=== PATIENT | male | born 1940 | race Caucasian/White ===

== ENCOUNTER → 2017-09-06 | Outpatient (CLI) | payer MEDICARE ==
--- NOTE | 2017-09-06 15:15 | Diagnostic Imaging Report ---
PROCEDURE:KNEE 1-2 VIEWS BILATERAL COMPARISON:None. INDICATIONS:BILATERAL KNEE PAIN FINDINGS: There are no fractures, dislocations, lytic or blastic lesions. The bones are well-mineralized. The soft-tissues are unremarkable. Right knee: Mild tricompartmental degenerative changes, worse in the medial compartment appears to resolution bodies in the suprapatella. Osteophytic spurring along the inferior aspect of the patella. Left knee: Mild tricompartmental degenerative changes appears significant motion bodies in the posterior knee joint. CONCLUSION: Mild tricompartmental degenerative changes in bilateral knees. Numerous loose joint bodies in the left knee with minimal in the right knee. Dictated by: Wild Remy M.D. on 09/06/2017 at 15:15 Electronically approved by: Wild Remy M.D. on 09/06/2017 at 15:15
== END ==
LOC: RAD 13:19
PROVIDERS: ATTEND Student in an Organized Health Care Education/Training Program
DX: M25.562 Pain in left knee (principal); M25.561 Pain in right knee

== ENCOUNTER → 2018-04-19 | Outpatient (CLI) | payer MEDICARE, OTHER ==
[~2018-04-19] MED LIST: GADOBENATE DIMEGLUMINE 1 ML IV ONE
[2018-04-19 09:18] LABS: BLOOD UREA NITROGEN 28 mg/dL (7-26); BUN/CREATININE RATIO 27 (6-25); CREATININE, SERUM 1.04 mg/dL (0.72-1.25); EST GLOMERULAR FILTRATION RATE > 60 ML/MIN (60-)
--- NOTE | 2018-04-19 12:39 | Diagnostic Imaging Report ---
EXAM: MRI pelvis with and without contrast. TECHNIQUE: MR of the pelvis WITH and WITHOUT intravenous gadolinium as per departmental protocol. 15 cc of MultiHance were administered intravenously. CLINICAL HISTORY: Pelvic pain. Elevated PSA. Concern for metastatic disease. COMPARISON: None available. FINDINGS: Examination somewhat limited by imaging dictated radiation by motion artifact. BLADDER and PROSTATE: Bladder is unremarkable. The prostate is heterogeneous in signal intensity with T2 hypointense signal in the right peripheral zone, however, examination not tailored for evaluation of prostate. RECTUM: Rectum and mesorectum are unremarkable. A few scattered sigmoid diverticula without CT evidence of diverticulitis. LYMPH NODES: No lymphadenopathy. PERITONEUM: No free fluid or loculated fluid collections. BONES: Advanced degenerative disc disease at L4-L5 and L5-S1 with posterior disc bulges. There is a isthmic grade 2 anterolisthesis of L5 in relation to S1. There is also facet arthropathy at this levels. Ill-defined patchy T1 hypointense T2 hyperintense signal in the posterior aspect of S3 and S4 is nonspecific, however, metastatic focus cannot be entirely excluded. SOFT TISSUES: Bilateral small fat-containing inguinal hernias, left larger than right. IMPRESSION: 1. Grade 2 anterolisthesis of L5 in relation to S1 due to bilateral L5 pars defect may represent etiology of patient's low back pain. In addition, there is degenerative disc disease at L4-L5 and L5-S1. 2. Abnormal signal intensity involving S3 and S4 is nonspecific. Consider further evaluation with whole body bone scan (nuclear medicine scintigraphy). 3. Heterogeneous prostate with low T2 signal in the right peripheral zone is nonspecific. Signed by: Dr. Kurtis Marques M.D. on 04/19/2018 12:35 PM
--- NOTE | 2018-04-19 16:27 | Diagnostic Imaging Report ---
Bone Scan, delayed phase INDICATION: 77 M with elevated PSA. Had prostate biopsy few years ago and was normal. Complains of intermittent hip, shoulder, back and knee pain. COMPARISON: MRI pelvis 04/19/2018 REPORT: Approximately 3 hours following intravenous administration of 27 mCi of Tc-99m MDP, delayed total body images in the anterior and posterior projections and selected spot images were obtained. Degenerative changes are noted in the cervical and lower lumbar spine. Scattered areas of very small foci of mildly increased tracer throughout the thoracolumbar spine are also compatible with degenerative changes. Increased tracer is seen in the shoulders, wrists and knees in a relatively symmetric patter, consistent with degenerative change. Otherwise, distribution of tracer activity is unremarkable throughout the skeletal system. No abnormal accumulation of tracer is seen in the soft tissues or urinary tract. IMPRESSION: 1. No scan evidence of metastatic bone disease. 2. Degenerative changes noted in the spine and multiple peripheral joints. Signed by: Dr. Scarlet Cuadra M.D. on 04/19/2018 4:24 PM
== END ==
LOC: NM 08:10
PROVIDERS: ATTEND Urology
DX: R97.20 Elevated prostate specific antigen [PSA] (principal)
CPT/HCPCS: 36415; 72197; 78306; 82565; 84520; A9503

== ENCOUNTER → 2018-09-20 | Day surgery (SDC) | payer MEDICARE ==
[2018-09-18 11:04] LABS: BASOPHILS # (AUTO) 0.1 (0.0-0.1); BASOPHILS % 0.6 % (0.0-1.0); EOSINOPHILS # (AUTO) 0.2 (0.0-0.4); EOSINOPHILS % 2.2 % (0.0-6.0); HEMATOCRIT 46.9 % (38.2-49.6); HEMOGLOBIN 15.7 g/dL (14.0-18.0); LYMPHOCYTES % 20.4 % (18.0-39.1); MEAN CORPUSCULAR HEMOGLOBIN 31.8 pg (28-32); MEAN CORPUSCULAR HGB CONC 33.5 g/dL (31-35); MEAN CORPUSCULAR VOLUME 95.1 fL (81-99); MONOCYTES # (AUTO) 0.9 (0.2-0.8); MONOCYTES % 9.5 % (4.4-11.3); NEUTROPHILS # (AUTO) 6.6 (2.1-6.9); NEUTROPHILS % 66.9 % (38.7-80.0); PLATELET COUNT 271 x10e3/uL (140-360); RED BLOOD COUNT 4.93 x10e6/uL (4.3-5.7); RED CELL DISTRIBUTION WIDTH 12.4 % (11.7-14.4)
--- NOTE | 2018-09-18 12:09 | Diagnostic Imaging Report ---
EXAMINATION: CHEST 2 VIEWS INDICATION: Pre-op. COMPARISON: None FINDINGS: TUBES and LINES: None. LUNGS: Lungs are well inflated. Lungs are clear. There is no evidence of pneumonia or pulmonary edema. PLEURA: No pleural effusion or pneumothorax. HEART AND MEDIASTINUM: The cardiomediastinal silhouette is unremarkable. The aorta is ectatic with atherosclerotic calcifications. BONES AND SOFT TISSUES: No acute osseous abnormality. UPPER ABDOMEN: No free air under the diaphragm. IMPRESSION: No acute thoracic abnormality. Signed by: Dr. Sriram Nieves MD on 09/18/2018 12:06 PM
[~2018-09-20] MED LIST changes: +ATORVASTATIN CA20 MG PO; +CLINDAMYCIN 300MG 50 ML IV ONE; +FLOMAX0.4 MG PO; -GADOBENATE DIMEGLUMINE 1 ML IV ONE; +GENTAMICIN 120MG/NS 100ML 100 ML ONE; +LIDOCAINE HCL 2% LOCAL INJ 5 ML SDV VIAL INJ ONE; +LISINOPRIL-HCT1 EACH; +PROPOFOL IV EMULSION 10 MG/ML 20 ML VIAL ONE
--- OUTSIDE RECORDS SUMMARY | 2018-09-20 06:04 | XMS REPORT ---
Author Author [facility] Address Unknown Phone Unavailable Care Team Providers Care Global Sourcing Manager Name Role Phone CHUCK HENRY Unavailable Unavailable Melvin HU Unavailable Unavailable Problems This patient has no known problems. Allergies, Adverse Reactions, Alerts This patient has no known allergies or adverse reactions. Medications This patient has no known medications. Results Test Description Test Time Test Comments Text Results Atomic Results Result Comments CHEST 2 VIEWS 2018-09-18 12:04:00 [facility] [address] [place] [address] Patient Name: RAPHAEL HERNADEZ MR #: [id number] : 1940 Age/Sex: 77/M Req #: [id number] Adm Physician: Ordered by: CHUCK HENRY MD Report #: [id number] Location: OR Room/Bed: Procedure: [id number] DX/CHEST 2 VIEWS Exam Date: 09/18/18 Exam Time: 1053 REPORT STATUS: Signed EXAMINATION: CHEST 2 VIEWS INDICATION: Pre-op. COMPARISON: None FINDINGS: TUBES and LINES: None. LUNGS: Lungs are well inflated. Lungs are clear. There is no evidence of pneumonia or pulmonary edema. PLEURA: No pleural effusion or pneumothorax. HEART AND MEDIASTINUM: The cardiomediastinal silhouette is unremarkable. The aorta is ectatic with atherosclerotic calcifications. BONES AND SOFT TISSUES: No acute osseous abnormality. UPPER ABDOMEN: No free air under the diaphragm. IMPRESSION: No acute thoracic abnormality. Signed by: Dr. Pricila Campbell MD on 09/18/2018 12:06 PM Dictated By: PRICILA CAMPBELL MD 05 Transcribed By: JOSEPH on 09/18/186 COPY TO: CHUCK HENRY MD BONE and/or JOINT WHOLE BODY 2018-04-19 15:30:00 [place] [id number] Patient Name: RAPHAEL HERNADEZ MR #: [id number] : 1940 Age/Sex: 77/M Req #: [id number] Adm Physician: Ordered by: CHUCK HENRY MD Report #: [id number] Location: [place] Room/Bed: Procedure: [id number] NM/BONE and/or JOINT WHOLE BODY Exam Date: 04/19/18 Exam Time: 0900 REPORT STATUS: Signed Bone Scan, delayed phase INDICATION: 77 M with elevated PSA. Had prostate biopsy few years ago and was normal. Complains of intermittent hip, shoulder, back and knee pain. COMPARISON: MRI pelvis 04/19/2018 REPORT: Approximately 3 hours following intravenous administration of 27 mCi of Tc-99m MDP, delayed total body images in the anterior and posterior projections and selected spot images were obtained. Degenerative changes are noted in the cervical and lower lumbar spine. Scattered areas of very small foci of mildly increased tracer throughout the thoracolumbar spine are also compatible with degenerative changes. Increased tracer is seen in the shoulders, wrists and knees in a relatively symmetric patter, consistent with degenerative change. Otherwise, distribution of tracer activity is unremarkable throughout the skeletal system. No abnormal accumulation of tracer is seen in the soft tissues or urinary tract. IMPRESSION: 1. No scan evidence of metastatic bone disease. 2. Degenerative changes noted in the spine and multiple peripheral joints. Signed by: Dr. Suzanne Cuadra M.D. on 04/19/2018 4:24 PM Dictated By: SUZANNE CUADRA MD 23 Transcribed By: JOSEPH on 04/19/181623 COPY TO: CHUCK HENRY MD MRI PELVIS WOW 2018-04-19 12:10:00 [place] [address] Patient Name: RAPHAEL HERNADEZ MR #: [id number] : 1940 Age/Sex: 77/M Req #: [id number] Adm Physician: Ordered by: CHUCK HENRY MD Report #: [id number] Location: [place] Room/Bed: Procedure: [id number] MRI/MRI PELVIS WOW Exam Date: Exam Time: REPORT STATUS: Signed EXAM: MRI pelvis with and without contrast. TECHNIQUE: MR of the pelvis WITH and WITHOUT intravenous gadolinium as per departmental protocol. 15 cc of MultiHance were administered intravenously. CLINICAL HISTORY: Pelvic pain. Elevated PSA. Concern for metastatic disease. COMPARISON: None available. FINDINGS: Examination somewhat limited by imaging dictated radiation by motion artifact. BLADDER and PROSTATE: Bladder is unremarkable. The prostate is heterogeneous in signal intensity with T2 hypointense signal in the right peripheral zone, however, examination not tailored for evaluation of prostate. RECTUM: Rectum and mesorectum are unremarkable. A few scattered sigmoid diverticula without CT evidence of diverticulitis. LYMPH NODES: No lymphadenopathy. PERITONEUM: No free fluid or loculated fluid collections. BONES: Advanced degenerative disc disease at L4-L5 and L5-S1 with posterior disc bulges. There is a isthmic grade 2 anterolisthesis of L5 in relation to S1. There is also facet arthropathy at this levels. Ill-defined patchy T1 hypointense T2 hyperintense signal in the posterior aspect of S3 and S4 is nonspecific, however, metastatic focus cannot be entirely excluded. SOFT TISSUES: Bilateral small fat-containing inguinal hernias, left larger than right. IMPRESSION: 1. Grade 2 anterolisthesis of L5 in relation to S1 due to bilateral L5 pars defect may represent etiology of patient's low back pain. In addition, there is degenerative disc disease at L4-L5 and L5-S1. 2. Abnormal signal intensity involving S3 and S4 is nonspecific. Consider further evaluation with whole body bone scan (nuclear medicine scintigraphy). 3. Heterogeneous prostate with low T2 signal in the right peripheral zone is nonspecific. Signed by: Dr. Kurtis James M.D. on 04/19/2018 12:35 PM Dictated By: OSIEL JAMES MD, MD 1235 Transcribed By: JOSEPH on 04/19/18 1235 COPY TO: CHUCK HENRY MD KNEE 1-2 VIEWS BILATERAL [place] [address] Patient Name: RAPHAEL HERNADEZ MR #: [id number] : 1940 Age/Sex: 76/M Req #: [id number] Adm Physician: Ordered by: RAFA HU MD Report #: [id number] Location: [facility] Room/Bed: Procedure: [id number] DX/KNEE 1-2 VIEWS BILATERAL Exam Date: 09/06/17 Exam Time: 1407 REPORT STATUS: Signed PROCEDURE: KNEE 1-2 VIEWS BILATERAL COMPARISON: None. INDICATIONS: BILATERAL KNEE PAIN FINDINGS: There are no fractures, dislocations, lytic or blastic lesions. The bones are well-mineralized. The soft-tissues are unremarkable. Right knee: Mild tricompartmental degenerative changes, worse in the medial compartment appears to resolution bodies in the suprapatella. Osteophytic spurring along the inferior aspect of the patella. Left knee: Mild tricompartmental degenerative changes appears significant motion bodies in the posterior knee joint. CONCLUSION: Mild tricompartmental degenerative changes in bilateral knees. Numerous loose joint bodies in the left knee with minimal in the right knee. Dictated by: Daniel Khoury M.D. on 09/06/2017 at 15:15 Electronically approved by: Daniel Khoury M.D. on 09/06/2017 at 15:15 Dictated By: DANIEL KHOURY MD 1515 Transcribed By: MARYLIN on 09/06/17 5433 COPY TO: RAFA HU MD
[2018-09-20 08:20] VITALS: BP 136/96
--- NOTE | 2018-09-20 22:47 | Operative Report ---
DATE OF PROCEDURE: 09/20/2018 SURGEON: Hammad Frost MD PREOPERATIVE DIAGNOSIS: Elevated PSA. POSTOPERATIVE DIAGNOSIS: Elevated PSA. PROCEDURES: 1. Prostate ultrasound. 2. Needle biopsy of prostate. 3. Ultrasound guidance needle biopsy. ANESTHESIA: General. ESTIMATED BLOOD LOSS: Minimal. COMPLICATIONS: None. INDICATIONS FOR PROCEDURE: Mr. Shell is a 77-year-old male with a PSA of over 200. He and I had a long discussion about the alternatives, risks and benefits including doing nothing and prostate biopsy. He voiced understanding of the options, alternatives, the risks, and benefits and he elected to proceed. PROCEDURE IN DETAIL: After informed consent was obtained, the patient was taken to the operating suite. He was placed in left lateral position on the operating table and underwent anesthesia. Prostate ultrasound: Utilizing a plethora of lubrication, the transrectal ultrasound probe was inserted atraumatically rectally. Prostate ultrasound was performed revealing normal-appearing seminal vesicles, normal-appearing prostate, volume was calculated at 34 mL. Impression, BPH. Needle biopsy of the prostate. Total 10 core biopsy approach was utilized, sent as sextant specimens. The patient tolerated the procedure well with minimal complications. No active bleeding. Ultrasound guidance: I was present. I utilized the ultrasound to guide needle biopsy prostate. There were no radiologists present. Hammad Frost MD ES/MODL /[id number] cc: Gildardo Downs MTDKaye
== END | disposition home or self-care (01) ==
LOC: OR 06:02
PROVIDERS: ATTEND Urology
DX: R97.20 Elevated prostate specific antigen [PSA] (principal); N41.4 Granulomatous prostatitis; N40.1 Benign prostatic hyperplasia with lower urinary tract symptoms; N13.8 Other obstructive and reflux uropathy; R35.1 Nocturia; N35.919 Unspecified urethral stricture, male, unspecified site; N52.9 Male erectile dysfunction, unspecified; I10 Essential (primary) hypertension; Z01.810 Encounter for preprocedural cardiovascular examination; Z01.812 Encounter for preprocedural laboratory examination; Z01.818 Encounter for other preprocedural examination; Z79.82 Long term (current) use of aspirin; Z87.891 Personal history of nicotine dependence
CPT/HCPCS: 36415; 55700; 71046; 76872; 85025; 88305; 88312; 93005; J1580; J2001; J2704

== ENCOUNTER → 2019-01-30 | Outpatient (CLI) | payer MEDICARE ==
[~2019-01-30] MED LIST changes: -CLINDAMYCIN 300MG 50 ML IV ONE; -GENTAMICIN 120MG/NS 100ML 100 ML ONE; +IOPAMIDOL 370 MG/ML 200 ML INFUS..BTL INJ ONE; -LIDOCAINE HCL 2% LOCAL INJ 5 ML SDV VIAL INJ ONE; -PROPOFOL IV EMULSION 10 MG/ML 20 ML VIAL ONE; +SODIUM CHLORIDE 0.9% 50ML 50 ML ONE
[2019-01-30 08:31] LABS: BLOOD UREA NITROGEN 22 mg/dL (7-26); BUN/CREATININE RATIO 21 (6-25); CREATININE, SERUM 1.07 mg/dL (0.72-1.25); EST GLOMERULAR FILTRATION RATE > 60 ML/MIN (60-)
--- NOTE | 2019-01-30 10:04 | Diagnostic Imaging Report ---
EXAM: CT Pelvis WITH intravenous contrast INDICATION: Prostate enlargement, back pain COMPARISON: None. TECHNIQUE: Abdomen and pelvis were scanned utilizing a multidetector helical scanner from the lung base to the pubic symphysis after administration of IV contrast. Coronal and sagittal reformations were obtained. Routine protocol was performed. Scan was performed during portal venous phase. IV CONTRAST: 100mL of Isovue 370 ORAL CONTRAST: None RADIATION DOSE: Total DLP: 303.2 mGy*cm Dose modulation, iterative reconstruction, and/or weight based adjustment of the mA/kV was utilized to reduce the radiation dose to as low as reasonably achievable. FINDINGS: KIDNEYS/URETERS: Inferior most portion of right kidney appears unremarkable. PELVIC ORGANS/BLADDER: Distended fluid-filled bladder. Prostatomegaly measuring up to 5.2 cm with coarse internal calcifications. PERITONEUM / RETROPERITONEUM: No free air or fluid. LYMPH NODES: No lymphadenopathy. VESSELS: Scattered atherosclerotic calcifications of the tortuous lower abdominal aorta and major branches. GI TRACT: No distention or wall thickening. BONES AND SOFT TISSUES: Left inguinal hernia containing a loop of sigmoid colon. No acute osseous injury. No suspicious lytic or blastic lesions. Marked degenerative changes of the lower lumbar spine with grade 1 anterolisthesis at L5-S1. IMPRESSION: Prostatomegaly up to 5.2 cm with coarse internal calcifications. No lymphadenopathy or suspicious blastic osseous lesions. Left inguinal hernia containing loop of sigmoid colon. Signed by: Nicki Prajapati MD on 01/30/2019 10:01 AM
--- NOTE | 2019-01-30 19:03 | Diagnostic Imaging Report ---
Bone Scan, delayed phase INDICATION: Prostate cancer; rising PSA. COMPARISON: Prior bone scan 04/19/2018; CT pelvis 01/30/2019 REPORT: Approximately 3 hours following intravenous administration of 27.5 mCi of Tc-99m MDP, delayed total body images in the anterior and posterior projections and selected spot images were obtained. New focal areas of markedly increased tracer activity are seen in the upper cervical spine, multiple levels of the thoracic spine, left 7th and 12th ribs posteriorly, manubrium, left ASIS, right iliac wing and right ischium inferior to the acetabulum. The patient was not able to adequately empty his bladder on void immediately prior to imaging. The full bladder obscures the inferior portion of the sacrum, however, on oblique views of the pelvis, increased tracer appears to involve the inferior sacrum. Otherwise, distribution of tracer activity is unremarkable throughout the skeletal system. No abnormal accumulation of tracer is seen in the soft tissues or renal collecting systems. 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 Signed by: Dr. Scarlet Cuadra M.D. on 01/30/2019 7:00 PM
== END ==
LOC: NM 07:47
PROVIDERS: ATTEND Urology
DX: R97.20 Elevated prostate specific antigen [PSA] (principal)
CPT/HCPCS: 36415; 72193; 78306; 82565; 84520; A9503; Q9967

== ENCOUNTER 2019-10-20 17:43 | Inpatient (IN) | payer MEDICARE, OTHER ==
[~2019-10-20] VITALS: Ht 175.3 cm; Wt 70.5 kg
[~2019-10-20 17:43] MED LIST changes: -IOPAMIDOL 370 MG/ML 200 ML INFUS..BTL INJ ONE; -LISINOPRIL-HCT1 EACH; +LISINOPRIL-HCT1 EACH PO; -SODIUM CHLORIDE 0.9% 50ML 50 ML ONE
--- OUTSIDE RECORDS SUMMARY | 2019-10-20 17:47 | XMS REPORT ---
Author Author [facility] t Organization [facility] Address [address] [place] [address] Phone Unavailable Care Team Providers Care Utility Technician Name Role Phone CHUCK HENRY Attphys Unavailable Melvin HU Attphys Unavailable Payers Payer Name Policy Type Policy Number Effective Date Expiration Date S ource Problems This patient has no known problems. Allergies, Adverse Reactions, Alerts Allergy Name Allergy Type Status Severity Reaction(s) Onset Date Inacti ve Date Treating Clinician Comments Source No Known Allergies DA Active U 2019-05-08 00:00:00 [facility] Medications This patient has no known medications. Procedures This patient has no known procedures. Results Test Description Test Time Test Comments Results Result Comments Source BONE,BIOPSY 2019-05-13 16:50:00 RUN DATE: 05/13/19 [place] [facility] PAGE 1 RUN TIME: 1650 Specimen Inquiry RUN USER: INTERFACE PATIENT: RAPHAEL HERNADEZ EDD LOC: [place]EL[place] U #: [id number] AGE/SX: 78/M ROOM: RE05/09/19[facility] DR: Fabien Hess MD : 41 BED: DIS: STATUS: DEP [facility] TLOC: SPEC #: [id number] RECD: 05/09/19 STATUS: ADDY RE #: [id number] JAVIER: 05/09/[address] [facility] [address]: Fabien Hess MD ENTERED: 05/09/19 SP TYPE: BX BONE OTHR DR: Brittany Reed MD TUMOR REGISTRYORDERED: GROSS COPIES TO: Brittany Reed MD [address] [facility] [address] [place] [address] TUMOR REGISTRY aFbien Hess MD [address] [place] [address] MARKERS: INTRADEPARTMENTAL CONSULT, MALIGNANCY PROCEDURES: GROSS (05/13/19-1524) TISSUES: 1. BONE - RINSE, 6 SLIDES 2. BONE MARROW, NOS - BX CLINICAL HISTORY COLLECTION DATE: 05/09/19 HISTORY PROSTATE CANCER COMMENT Immunostains were prepared on the bone core biopsy at 51Talk and interpreted at . The controls stain appropriately. The tumor is positive for PSA and PSAP. The findings are consistent with metastatic prostate carcinoma. Intradepartmental consultation: RRB. CONTINUED ON NEXT PAGE RUN DATE: 05/13/19 [place] [facility] PAGE 2 RUN TIME: 1650 Specimen Inquiry RUN USER: INTERFACE SPEC #: [id number] PATIENT: RAPHAEL HERNADEZ MABEL #[id number] (Continued) FINAL DIAGNOSIS Right iliac bone, fine needle aspirate biopsy: RARE COLLECTIONS OF ATYPICAL GLANDULAR EPITHELIAL CELLS WITH PROMINENT NUCLEOLI CONSISTENT WITH METASTATIC PROSTATIC CARCINOMA FEW BONE MARROW ELEMENTS SEEN POSITIVE FOR MALIGNANCY Right iliac bone, core biopsy: METASTATIC TUMOR CONSISTENT WITH METASTATIC PROSTATE CARCINOMA, BONE DMW/estela D 00711, 11218, 33284, 26718 MACROSCOPIC The specimens consist of six aspirate smear slides to be stained for cytologic evaluation, aspirate fluid to be concentrated and processed for cytologic evaluation, and a bone biopsy which is received in formalin, labeled with the patient's name, and identified as "bone biopsy". A cell block is prepared on the aspirate fluid. The bone core biopsy measures 0.7 cm in length by 0.15 cm in diameter. It is submitted for light decalcification and follow up microscopic evaluation. GROSS PERFORMED AT [facility] [address] [place] [address] (p)[phone] MICROSCOPIC All of the stains, including any controls performed, stain appropriately. MICROSCOPIC PERFORMED AT [facility] [address] [facility] [place] [address] (p)[phone] PERFORMING SITE Diagnosis performed at: [facility] [place] [address] [facility] CONTINUED ON NEXT PAGE RUN DATE: 05/13/19 [place] [facility] PAGE 3 RUN TIME: 1650 Specimen Inquiry RUN USER: INTERFACE SPEC #: [id number] PATIENT: RAPHAEL HERNADEZ EDD #[id number] (Continued) PERFORMING SITE (Continued) [place] [address] Signed SIGNATURE ON FILE Shakira Ramires MD 05/13/19 1650 -------- ---- END OF REPORT - [facility] 2019-05-12 21:34:00 Name: RAPHAEL HERNADEZ EDD [facility] : 1940 Age/S: 78 / M [address] Unit #: [id number] Loc: [place] [address] Phys: Fabien Hess MD Acct: [id number] Dis Date: Status: [facility] PHONE #: [phone] Exam Date: 05/09/2019 1200 FAX #: [phone] Reason: EXAMS: CPT CODE: [id number] CT [facility] [address] EXAM: CT-guided pelvic bone biopsy; INFORMATION: Patient with history of prostate cancer and significant elevation of PSA. A bone scan has demonstrated several areas of increased radionuclide uptake including lesions within the right iliac wing. A diagnostic CT scan has demonstrated a poorly defined slightly sclerotic area in the right iliac wing and additional slightly hypodense areas. These are suspicious for metastatic disease. TECHNIQUE AND FIND INGS: Informed consent was obtained and the patient was placed in supine oblique position on the CT table. Localization scans were obtained. General anesthesia was initiated. The patient's skin in the right lower quadrant was prepped and draped in the usual sterile fashion. Marcaine was administered at the skin and at the periosteum and Jamshidi bone biopsy needles were then inserted into the fluid components of the abnormal area of the right iliac wing. A tissue core was retrieved and bone marrow was aspirated. Tissue material was sent to the pathology lab. The needles were removed. Post biopsy scans showed no evidence of hemorrhage. No complications. IMPRESSION: Successful CT-guided bone biopsy of 2 abnormal areas within the right iliac wing. Location code: [facility] at 2134 Reported and signed by: Fabien Hess M.D. CC: Brittany Reed MD; Fabien Hess MD Technologist:Chan Vuong RT(R),(MR),(CT) CTDI: DLP: Trnscb Date/Time: 05/12/2019 (2133) [email or web address].GRW Orig Print D/T: S: 05/12/2019 (2136) PAGE 1 Signed Report [facility] 2019-05-12 21:34:00 Name: RAPHAEL HERNADEZ EDD [facility] : 1940 Age/S: 78 / M [address] Unit #: [id number] Loc: [place] [address] Phys: Fabien Hess MD Acct: [id number] Dis Date: Status: [facility] PHONE #: [phone] Exam Date: 05/09/2019 1200 FAX #: [phone] Reason: BONE MARROW BX EXAMS: CPT CODE: [id number] CT [facility] [address] EXAM: CT-guided pelvic bone biopsy; INFORMATION: Patient with history of prostate cancer and significant elevation of PSA. A bone scan has demonstrated several areas of increased radionuclide uptake including lesions within the right iliac wing. A diagnostic CT scan has demonstrated a poorly defined slightly sclerotic area in the right iliac wing and additional slightly hypodense areas. These are suspicious for metastatic disease. TECHNIQUE AND FIND INGS: Informed consent was obtained and the patient was placed in supine oblique position on the CT table. Localization scans were obtained. General anesthesia was initiated. The patient's skin in the right lower quadrant was prepped and draped in the usual sterile fashion. Marcaine was administered at the skin and at the periosteum and Jamshidi bone biopsy needles were then inserted into the fluid components of the abnormal area of the right iliac wing. A tissue core was retrieved and bone marrow was aspirated. Tissue material was sent to the pathology lab. The needles were removed. Post biopsy scans showed no evidence of hemorrhage. No complications. IMPRESSION: Successful CT-guided bone biopsy of 2 abnormal areas within the right iliac wing. Location code: [facility] at 2133 Reported and signed by: Fabien Hess M.D. CC: Brittany Reed MD; Fabien Hess MD Technologist:Chan Vuong RT(R),(MR),(CT) CTDI: DLP: Trnscb Date/Time: 05/12/2019 (2133) [email or web address] Orig Print D/T: S: 05/12/2019 (2136) PAGE 1 Signed Report BASIC METABOLIC PANEL 2019-05-09 10:18:00 Test Item SODIUM (test code = NA) 138 mmol/L 136-145 N POTASSIUM (test code = K) 3.7 mmol/L 3.5-5.1 N CHLORIDE (test code = CL) 107.0 mmol/L 98-107 N CARBON DIOXIDE (test code = CO2) 26.0 mmol/L 21-32 N ANION GAP (test code = GAP) 8.7 10-20 L GLUCOSE (test code = GLU) 92 mg/dL 74-106 N BLOOD UREA NITROGEN (test code = BUN) 22 mg/dL 7-18 H GLOMERULAR FILTRATION RATE (test code = GFR) > 60 mL/min >=60 Estimated GFR by using Modified MDRD formula.Chronic kidney disease is defined as either kidney damageor GFR <60 mL/min/1.73 m2 for >3 months. CREATININE (test code = CREAT) 1.00 mg/dL 0.7-1.3 N BUN/CREATININE RATIO (test code = BUN/CREA) 22.5 10-20 H CALCIUM (test code = CA) 9.4 mg/dL 8.5-10.1 N BASIC METABOLIC [id number] 10:17:00* Test Item Value Reference Range Interpretation Comments SODIUM (test code = NA) 138 mmol/L 136-145 N POTASSIUM (test code = K) 3.7 mmol/L 3.5-5.1 N CHLORIDE (test code = CL) 107.0 mmol/L 98-107 N CARBON DIOXIDE (test code = CO2) mmol/L 21-32 ANION GAP (test code = GAP) 10-20 GLUCOSE (test code = GLU) mg/dL 74-106 BLOOD UREA NITROGEN (test code = BUN) mg/dL 7-18 GLOMERULAR FILTRATION RATE (test code = GFR) mL/min >=60 CREATININE (test code = CREAT) mg/dL 0.7-1.3 BUN/CREATININE RATIO (test code = BUN/CREA) 10-20 CALCIUM (test code = CA) mg/dL 8.5-10.1 CBC W/AUTO [id number] 09:53:00* Test Item Value Reference Range Interpretation Comments WHITE BLOOD CELL (test code = WBC) 7.5 K/mm3 4.5-12.5 N RED BLOOD CELL (test code = RBC) 4.67 mill/mm3 4.0-5.8 N HEMOGLOBIN (test code = HGB) 14.3 gram/dL 13.0-17.5 N HEMATOCRIT (test code = HCT) 44.6 % 42.0-52.0 N MEAN CELL VOLUME (test code = MCV) 95.5 fL 80-98 N MEAN CELL HGB (test code = MCH) 30.6 picogram 27.0-33.0 N MEAN CELL HGB CONCETRATION (test code = MCHC) 32.1 gram/dL 33.0-36. 0 L RED CELL DISTRIBUTION WIDTH (test code = RDW) 13.7 % 11.6-16. 2 N RED CELL DISTRIBUTION WIDTH SD (test code = RDW-SD) 48.3 fL 37 .0-51.0 N PLATELET COUNT (test code = PLT) 247 K/mm3 150-450 N MEAN PLATELET VOLUME (test code = MPV) 10.0 fL 6.7-11.0 N NEUTROPHIL % (test code = NT%) 64.7 % 39.0-69.0 N IMMATURE GRANULOCYTE % (test code = IG%) 0.3 % 0.0-5.0 N LYMPHOCYTE % (test code = LY%) 23.3 % 25.0-55.0 L MONOCYTE % (test code = MO%) 7.2 % 0.0-10.0 N EOSINOPHIL % (test code = EO%) 3.6 % 0.0-5.0 N BASOPHIL % (test code = BA%) 0.9 % 0.0-1.0 N NUCLEATED RBC % (test code = NRBC%) 0.0 % 0-0 N NEUTROPHIL # (test code = NT#) 4.88 K/mm3 1.8-7.7 N IMMATURE GRANULOCYTE # (test code = IG#) 0.02 x10 3/uL 0-0.03 N LYMPHOCYTE # (test code = LY#) 1.76 K/mm3 1.0-5.0 N MONOCYTE # (test code = MO#) 0.54 K/mm3 0-0.8 N EOSINOPHIL # (test code = EO#) 0.27 K/mm3 0.0-0.5 N BASOPHIL # (test code = BA#) 0.07 K/mm3 0.0-0.2 N NUCLEATED RBC # (test code = NRBC#) 0.00 K/mm3 0.0-0.1 N MANUAL DIFF REQUIRED (test code = MDIFF) NO CBC W/AUTO [id number] 09:50:00* Test Item Value Reference Range Interpretation Comments WHITE BLOOD CELL (test code = WBC) K/mm3 4.5-12.5 RED BLOOD CELL (test code = RBC) mill/mm3 4.0-5.8 HEMOGLOBIN (test code = HGB) 14.3 gram/dL 13.0-17.5 N HEMATOCRIT (test code = HCT) 44.6 % 42.0-52.0 N MEAN CELL VOLUME (test code = MCV) fL 80-98 MEAN CELL HGB (test code = MCH) picogram 27.0-33.0 MEAN CELL HGB CONCETRATION (test code = MCHC) gram/dL 33.0-36. 0 RED CELL DISTRIBUTION WIDTH (test code = RDW) % 11.6-16. 2 RED CELL DISTRIBUTION WIDTH SD (test code = RDW-SD) fL 37 .0-51.0 PLATELET COUNT (test code = PLT) K/mm3 150-450 MEAN PLATELET VOLUME (test code = MPV) fL 6.7-11.0 NEUTROPHIL % (test code = NT%) % 39.0-69.0 IMMATURE GRANULOCYTE % (test code = IG%) % 0.0-5.0 LYMPHOCYTE % (test code = LY%) % 25.0-55.0 MONOCYTE % (test code = MO%) % 0.0-10.0 EOSINOPHIL % (test code = EO%) % 0.0-5.0 BASOPHIL % (test code = BA%) % 0.0-1.0 NEUTROPHIL # (test code = NT#) K/mm3 1.8-7.7 LYMPHOCYTE # (test code = LY#) K/mm3 1.0-5.0 MONOCYTE # (test code = MO#) K/mm3 0-0.8 EOSINOPHIL # (test code = EO#) K/mm3 0.0-0.5 BASOPHIL # (test code = BA#) K/mm3 0.0-0.2 BASIC METABOLIC [id number] 16:32:00* Test Item Value Reference Range Interpretation Comments SODIUM (test code = NA) 140 mmol/L 136-145 N POTASSIUM (test code = K) 3.9 mmol/L 3.5-5.1 N CHLORIDE (test code = CL) 108.0 mmol/L 98-107 H CARBON DIOXIDE (test code = CO2) 26.0 mmol/L 21-32 N ANION GAP (test code = GAP) 9.9 10-20 L GLUCOSE (test code = GLU) 94 mg/dL 74-106 N BLOOD UREA NITROGEN (test code = BUN) 21 mg/dL 7-18 H GLOMERULAR FILTRATION RATE (test code = GFR) > 60 mL/min >=60 Estimated GFR by using Modified MDRD formula.Chronic kidney disease is defined as either kidney damageor GFR <60 mL/min/1.73 m2 for >3 months. CREATININE (test code = CREAT) 1.00 mg/dL 0.7-1.3 N BUN/CREATININE RATIO (test code = BUN/CREA) 21.6 10-20 H CALCIUM (test code = CA) 9.5 mg/dL 8.5-10.1 N BASIC METABOLIC [id number] 16:26:00* Test Item Value Reference Range Interpretation Comments SODIUM (test code = NA) 140 mmol/L 136-145 N POTASSIUM (test code = K) 3.9 mmol/L 3.5-5.1 N CHLORIDE (test code = CL) 108.0 mmol/L 98-107 H CARBON DIOXIDE (test code = CO2) mmol/L 21-32 ANION GAP (test code = GAP) 10-20 GLUCOSE (test code = GLU) mg/dL 74-106 BLOOD UREA NITROGEN (test code = BUN) mg/dL 7-18 GLOMERULAR FILTRATION RATE (test code = GFR) mL/min >=60 CREATININE (test code = CREAT) mg/dL 0.7-1.3 BUN/CREATININE RATIO (test code = BUN/CREA) 10-20 CALCIUM (test code = CA) mg/dL 8.5-10.1 PROTHROMBIN [id number] 11:01:00* Test Item Value Reference Range Interpretation Comments PROTHROMBIN TIME PATIENT (test code = PTP) 12.0 seconds 9.0-14.0 N INTERNATIONAL NORMAL RATIO (test code = INR) 1.0 0.8-1.2 N The therapeutic range for oral anticoagulant therapy formost indications is an international normalized ratio (INR)of between 2.0 and 3.0. The recommended therapeutic INRrange for various clinical situations is listed below: Clinical Situation INR range Pulmonary e mbolism treatment (2.0-3.0)Venous thrombosis treatmentVenous thrombosis prophylaxis (high risk surgery)Prevention of systemic embolism from: Acute myocardial infarction Valvular heart disease Atrial fibrillation Mechanical prosthetic heart valves (2.5-3.5) THROMBOPLASTIN TIME [id number] 11:01:00* Test Item Value Reference Range Interpretation Comments THROMBOPLASTIN TIME PARTIAL (test code = PTT) 28.9 seconds 25.0-36. 5 N - CT PELVIS W/O [id number] 15:39:00 Name: HERNADEZJIAE MABEL [facility] : 1940 Age/S: 78 / M [address] Unit #: [id number] Loc: [place] [address] Phys: Fabien Hess MD Acct: [id number] Dis Date: [facility] PHONE #: [phone] Exam Date: 05/02/2019 8164 FAX #: [phone] Reason: PROSTATE CA Report Has Been Amended EXAMS: CPT CODE: [id number] CT PELVIS W/O CONTRAST 68538 Addendum - 05/05/2019 SIGNED 05/05/2019 ADDENDUM: [id number] CT/CTPELVISWO Upon review with the ordering clinician, there is a bone scan at an outside hospital demonstrating metastatic disease that reports metastatic disease within the pelvis. Adjacent to the right acetabulum (2/53) there is a faint sclerotic lesion which may correspond to the uptake seen on the prior bone scan. Further evaluation with tissue sampling is recommended. No visualized malignant appearing lesions in the spine. at 1536 Reported and signed by: Dario Guillen MD Transcribed: 05/05/2019 (7243) t.SDR.RR31 [address] OF THE PELVIS WITH SAGITTAL AND CORONAL RECONSTRUCTIONS DIAGNOSIS: Prostate cancers COMPARISON: No prior studies are available at this institution Noncontrast CT were performed with thin sections and reconstructions were obtained. CT radiation dose optimization is achieved for this examination by the use of a CT protocol in accordance with ACR practice standards and adherence to beater operator's recommendations. FINDINGS: Calcified granulomas present in the left lung base. Hepatobiliary system is grossly within normal limits. Spleen is unremarkable. Pancreas a nd adrenal glands are unremarkable. Cystic lesions are present in the righ t kidney. Suboptimal characterization due to the absence of IV contrast. Urinary bladder is distended. Consultations are present in the prosta te gland. No obvious masses are seen however evaluation is suboptimal in t he absence of IV contrast. PAGE 1 Signed Report (CONTINUED) Name: HERNADEZRAPHAEL MABEL [facility] : 1940 Age/S: 78 / M [address] [facility] Unit #: [id number] Loc: [place] [address] Phys: Fabien Hess MD Acct: [id number] Dis Date: Status: DEP CLI PHONE #: [phone] Exam Date: 05/02/2019 8303 FAX #: [phone] Reason: PROSTATE CA Report Has Been Amended EXAMS: CPT CODE: [id number] CT PELVIS W/O CONTRAST 50598 <Continued> Atherosclerotic disease is seen throughout the abdominal aorta and extends into the iliac arteries. Moderate colonic stool burden is seen. IMPRESSION: No visualized prosthetic lesion is present. However contrast enhanced MRI is significantly more sensitive for detecting prostate abnormalities. at 1509 Reported and signed by: Dario Guillen MD CC: Aminata Mendez MD; Chuck Henry MD Technologist:Chan Vuong RT(R),(MR),(CT) CTDI: DLP: Trnscb Date/Time: 05/02/2019 (385) [email or web address].RR31 Orig Print D/T: S: 05/02/2019 (6611) PAGE 2 Signed Report - CT PELVIS W/O [id number] 15:09:00 Name: RAPHAEL HERNADEZ EDD [facility] : 1940 Age/S: 78 / M [address] [facility] Unit #: [id number] Loc: [place] [address] Phys: Fabien Hess MD Acct: [id number] Dis Date: Status: REG CLI PHONE #: [phone] Exam Date: 05/02/2019 1355 FAX #: [phone] Reason: PROSTATE CA EXAMS: CPT CODE: [id number] CT PELVIS W/O CONTRAST 05309 CT OF THE PELVIS WITH SAGITTAL AND CORONAL RECONSTRUCTIONS DIAGNOSIS: Prostate cancers COMPARISON: No prior studies are available at this institution Noncontrast CT were performed with thin sections and reconstructions were obtained. CT radiation dose optimization is achieved for this examination by the use of a CT protocol in accordance with ACR practice standards and adherence to beater operator's recommendations. FINDINGS: Calcified granulomas present in the left lung base. Hepatobiliary system is grossly within normal limits. Spleen is unremarkable. Pancreas and adrenal glands are unremarkable. Cystic lesions are present in the right kidney. Suboptimal characterization due to the absence of IV contrast. Urinary bladder is distended. Consultations are present in the prostate gland. No obvious masses are seen however evaluation is suboptimal in the absence of IV contrast. Atherosclerotic disease is seen throughout the abdominal aorta and extends into the iliac arteries. Moderate colonic stool burden is seen. IMPRESSION: No visualized prosthetic lesion is present. However contrast enhanced MRI is significantly more sensitive for detecting prostate abnormalities. at 1509 Reported and signed by: Dario Guillen MD CC: Aminata Mendez MD; Chuck Henry MD Technologist:Chan Vuong RT(R),(MR),(CT) CTDI: DLP: Trnscb Date/Time: 05/02/2019 (7710) [email or web address] Orig Print D/T: S: 05/02/2019 (2209) PAGE 1 Signed Report BONE and/or JOINT WHOLE BODY 2019-01-30 18:46:00 [place] [address] Patient Name: RAPHAEL HERNADEZ MR #: [id number] : 1940 Age/Sex: 78/M Req #: [id number] Adm Physician: Ordered by: CHUCK HENRY MD Report #: [id number] Location: [place] Room/Bed: Procedure: [id number] NM/BONE and/or JOINT WHOLE BODY Exam Date: 01/30/19 Exam Ti me: 0855 REPORT STATUS: Signed B one Scan, delayed phase INDICATION: Prostate cancer; rising PSA. COMP BARB: Prior bone scan 04/19/2018; CT pelvis 01/30/2019 REPORT: Approximatel y 3 hours following intravenous administration of 27.5 mCi of Tc-99m MDPsofya total body images in the anterior and posterior projections and selected spot images were obtained. New focal areas of markedly increased tracer ac tivity are seen in the upper cervical spine, multiple levels of the thoracic s pine, left 7th and 12th ribs posteriorly, manubrium, left ASIS, right iliac wi ng and right ischium inferior to the acetabulum. The patient was not able to adequately empty his bladder on void immediately prior to imaging. The full bladder obscures the inferior portion of the sacrum, however, on oblique views of the pelvis, increased tracer appears to involve the inferior sacrum. Other roberts, distribution of tracer activity is unremarkable throughout the skeletal system. No abnormal accumulation of tracer is seen in the soft tissues or renal collecting systems. IMPRESSION: Scan evidence of new met astatic bone disease involving the cervical and thoracic spine, two ribs poste riorly, manubrium and multiple sites in the pelvis. Signed by: Dr. Suzanne Cuadra M.D. on 01/30/2019 7:00 PM Dictated By: SUZANNE CUADRA MD Electronical ly Signed By: SUZANNE CUADRA MD on 01/30/191899 Transcribed By: JOSEPH on 1899 COPY TO: CHUCK HENRY MD CT PELVIS [id number] 09:54:00 [place] [address] Patient Name: RAPHAEL HERNADEZ MR #: [id number] : 1940 Age/Sex: 78/M Req #: [id number] Adm Physician: Ordered by: CHUCK HENRY MD Report #: [id number] Location: [place] Room/Bed: Procedure: [id number] CT/CT P JAN W Exam Date: 01/30/19 Exam Time: 909 REPORT STATUS: Signed EXAM: CT Pelvis intravenous contrast INDICATION: Prostate enlargement, back pain COMPARISON: None. TECHNIQUE: Abdomen and pelvis were scanned utilizing a mu ltidetector helical scanner from the lung base to the pubic symphysis after ad ministration of IV contrast. Coronal and sagittal reformations were obtained. Routine protocol was performed. Scan was performed during portal venous phase. IV CONTRAST: 100mL of Isovue 370 ORAL CONTRAST: None RADIATION DOSE: Total DLP: 303.2 mGy*cm Dose modulation, iterative reconstruction, and/or weight based adjustment of the mA/kV was utilized to reduce the radia tion dose to as low as reasonably achievable. FINDINGS: KIDNEYS/URE TERS: Inferior most portion of right kidney appears unremarkable. PELVIC ORGAN S/BLADDER: Distended fluid-filled bladder. Prostatomegaly measuring up to 5.2 cm with coarse internal calcifications. PERITONEUM / RETROPERITONEUM: No fr ee air or fluid. LYMPH NODES: No lymphadenopathy. VESSELS: Scattered atheros clerotic calcifications of the tortuous lower abdominal aorta and major branch es. GI TRACT: No distention or wall thickening. BONES AND SOFT TISSUES : Left inguinal hernia containing a loop of sigmoid colon. No acute osseous in jury. No suspicious lytic or blastic lesions. Marked degenerative changes of t he lower lumbar spine with grade 1 anterolisthesis at L5-S1. IMPRESSION: Prostatomegaly up to 5.2 cm with coarse internal calcifications. No lymphad enopathy or suspicious blastic osseous lesions. Left inguinal hernia contai jose loop of sigmoid colon. Signed by: Navdeep Flores MD on 01/30/2019 10:01 AM Dictated By: NAVDEEP FLORES MD 1001 Transcribed By: JOSEPH on 01/30/19 1001 COPY TO: CHUCK MONGE MD CHEST 2 [id number] 12:04:00 [place] [address] Patient Name: RAPHAEL HERNADEZ MR #: [id number] : 1940 Age/Sex: 77/M Req #: [id number] Adm Physician: Ordered by: CHUCK HENRY MD Report #: [id number] Location: [place] Room/Bed: Procedure: [id number] DX/CHES T 2 VIEWS Exam Date: 09/18/18 Exam Time: 1053 REPORT STATUS: Signed EXAMINATION: CH EST 2 VIEWS INDICATION: Pre-op. COMPARISON: None FINDIN GS: TUBES and LINES: None. LUNGS: Lungs are well inflated. Lungs are c lear. There is no evidence of pneumonia or pulmonary edema. PLEURA: No pleural effusion or pneumothorax. HEART AND MEDIASTINUM: The cardiomedia stinal silhouette is unremarkable. The aorta is ectatic with atherosclerotic c alcifications. BONES AND SOFT TISSUES: No acute osseous abnormality. UPPER ABDOMEN: No free air under the diaphragm. IMPRESSION: No acute thoracic abnormality. Signed by: Dr. Pricila Campbell MD on 09/18/2018 12:06 PM Dictated By: PRICILA CAMPBELL MD 05 COPY TO: Sherice HENRY MD BONE and/or JOINT WHOLE [id number] 15:30:00 [place] [address] Patient Name: RAPHAEL HERNADEZ MR #: [id number] : 1940 Age/Sex: 77/M Req #: [id number] Adm Physician: Ordered by: CHUCK HENRY MD Report #: [id number] Location: [place] Room/Bed: Procedure: [id number] NM/BONE and/or JOINT WHOLE BODY Exam Date: 11/23/18 Exam Ti me: 0900 REPORT STATUS: Signed B one Scan, delayed phase INDICATION: 77 M with elevated PSA. Had prostate biopsy few years ago and was normal. Complains of intermittent hip, shoulder, back and knee pain. COMPARISON: MRI pelvis 04/19/2018 REPORT: Approxi mately 3 hours following intravenous administration of 27 mCi of Tc-99m MDP, d elayed total body images in the anterior and posterior projections and select ed spot images were obtained. Degenerative changes are noted in the cervic al and lower lumbar spine. Scattered areas of very small foci of mildly incr eased tracer throughout the thoracolumbar spine are also compatible with degen erative changes. Increased tracer is seen in the shoulders, wrists and knees in a relatively symmetric patter, consistent with degenerative change. Other roberts, distribution of tracer activity is unremarkable throughout the skeletal system. No abnormal accumulation of tracer is seen in the soft tissues or urinary tract. IMPRESSION: 1. No scan evidence of metastatic jian ne disease. 2. Degenerative changes noted in the spine and multiple santana pheral joints. Signed by: Dr. Suzanne Cuadra M.D. on 04/19/2018 4:24 PM Dictated By: SUZANNE CUADRA MD 23 COPY TO: VICENTE HENRY RD, MD MRI PELVIS [id number] 12:10:00 [place] [address] Patient Name: RAPHAEL HERNADEZ MR #: [id number] : 1940 Age/Sex: 77/M Req #: [id number] Adm Physician: Ordered by: CHUCK HENRY MD Report #: [id number] Location: [place] Room/Bed: Procedure: [id number] MRI/MRI PELVIS WOW Exam Date: Exam Time: REPORT STATUS: Signed EXAM: MRI pelvis with and without contrast. TECHNIQUE: MR of the pelvis WITH and WITHOUT intravenous gadolinium as per departmental protocol. 15 cc of MultiHance were administered intravenously. CLINICAL HISTORY: Pelvic pain. Elevated PSA. Concern for m etastatic disease. COMPARISON: None available. FINDINGS: Examination s omewhat limited by imaging dictated radiation by motion artifact. BLADDE R and PROSTATE: Bladder is unremarkable. The prostate is heterogeneous in sig nal intensity with T2 hypointense signal in the right peripheral zone, however , examination not tailored for evaluation of prostate. RECTUM: Rectum and mesorectum are unremarkable. A few scattered sigmoid diverticula without CT ev idence of diverticulitis. LYMPH NODES: No lymphadenopathy. PERITONEUM: No free fluid or loculated fluid collections. BONES: Advanced degenerative disc disease at L4-L5 and L5-S1 with posterior disc bulges. There is a isthmic grade 2 anterolisthesis of L5 in relation to S1. There is also facet arthro barby at this levels. Ill-defined patchy T1 hypointense T2 hyperintense signal in the posterior aspect of S3 and S4 is nonspecific, however, metastatic focus cannot be entirely excluded. SOFT TISSUES: Bilateral small fat-containing inguinal hernias, left larger than right. IMPRESSION: 1. Grade 2 anterolisthesis of L5 in relation to S1 due to bilateral L5 pars defect may r epresent etiology of patient's low back pain. In addition, there is degenerati ve disc disease at L4-L5 and L5-S1. 2. Abnormal signal intensity involving S3 and S4 is nonspecific. Consider further evaluation with whole body bone sca n (nuclear medicine scintigraphy). 3. Heterogeneous prostate with low T2 si gnal in the right peripheral zone is nonspecific. Signed by: Dr. Kurtis James M.D. on 04/19/2018 12:35 PM Dictated By: OSIEL JAMES MD, MD 1235 Transcribed By: JOSEPH on 04/19/18 1235 COPY TO: CHUCK HENRY MD KNEE 1-2 VIEWS BILATERAL [place] [address] Patient Name: RAPHAEL HERNADEZ MR #: [id number] : 1940 Age/Sex: 76/M Req #: [id number] [facility] Physician: Ordered by: RAFA HU MD Report #: [id number] Location: [facility] Room/Bed: Procedure: [id number] DX/KNEE 1-2 VIEWS BILATERAL Exam Da te: 09/06/17 Exam Time: 1407 REPORT STATUS: Sig olivia PROCEDURE: KNEE 1-2 VIEWS BILATERAL COMPARISON: None. IND ICATIONS: BILATERAL KNEE PAIN FINDINGS: There are no fractures, dis locations, lytic or blastic lesions. The bones are well-mineralized. The soft -tissues are unremarkable. Right knee: Mild tricompartmental degenerative changes, worse in the medial compartment appears to resolution bodies in the suprapatella. Osteophytic spurring along the inferior aspect of the patella. Left knee: Mild tricompartmental degenerative changes appears significa nt motion bodies in the posterior knee joint. CONCLUSION: Mild tri compartmental degenerative changes in bilateral knees. Numerous loose joint b odies in the left knee with minimal in the right knee. Dictated by: Wild gold M.D. on 09/06/2017 at 15:15 Electronically approved by: Wild Khoury M.D. on 09/06/2017 at 15:15 Dictated By: WILD KHOURY MD Electronically Si gned By: WILD KHOURY MD on 09/06/17 [id number] Transcribed By: MARYLIN on 09/06/17 [id number] COPY TO: RAFA HU MD
[2019-10-20] MEDS ORDERED: CEFEPIME 1GM/NS 0.9% 50 ML 50 ML IV ONE ×2 (18:19→18:51)
--- NOTE | 2019-10-20 18:32 | Emergency Department Note ---
History of Present Illnes History of Present Illness Chief Complaint: generalize abdominal pain History of Present Illness This is a 78 year old male. was doing well prior to this. Historian: Patient, Family Member (son) Arrival Mode: Car History limited by: condition of the patient Hostler Helper Required: No Onset (how long ago): week(s) (1) Location: generalize Quality: sharp Radiation: non-radiation Severity: moderate Onset quality: gradual Duration (how long): week(s) (1) Timing of current episode: constant Progression: worsening Context: recent illness, recent surgery, recent immobilization, recent travel, trauma/injury, new medications, hx of DVT/PE, non-compliance w/ medications Relieving factors: none Exacerbating factors: movement Associated symptoms: denies other symptoms Treatments prior to arrival: none Past Medical/Family History Physician Review I have reviewed the patient's past medical and family history. Any updates have been documented here. Past Medical History Recent Fever: No Clinical Suspicion of Infectio: No New/Unexplained Change in Ment: No Past Medical History: Hypertension Other Medical History: bone cancer Social History Smoking Cessation: Former smoker Counseling Performed: No Alcohol Use: None Any Illegal Drug Use: No TB Exposure/Symptoms: No Physically hurt or threatened: No Other Any Pre-Existing Lines (PICC,: No Is patient up to date on immun: Yes Last Flu: 2019 Last Pneumovax: 2019 Review of Systems Review of Systems Constitutional: no symptoms EENTM: no symptoms Cardiovascular: no symptoms Respiratory: no symptoms Gastrointestinal: as per HPI, abdominal pain Genitourinary: no symptoms Musculoskeletal: no symptoms Neurological: no symptoms Psychological: no symptoms Endocrine: no symptoms Hematological/Lymphatic: no symptoms Review of other systems All other systems reviewed and negative. Physical Exam Related Data Allergies: Coded Allergies: No Known Allergies (Unverified , 09/18/18) Vital signs reviewed: Yes Physical Exam CONSTITUTIONAL Constitutional: well-developed, well-nourished HENT HENT: normocephalic, atraumatic, oropharynx clear/moist, nose normal HENT L/R: left ext ear normal, right ext ear normal EYES Eyes: PERRL, conjunctivae normal NECK Neck: ROM normal PULMONARY Pulmonary: effort normal, breath sounds normal CARDIOVASCULAR Cardiovascular: regular rhythm, heart sounds normal, capillary refill normal, normal rate GASTROINTESTINAL Abdominal: soft, bowel sounds normal; distension; tender (suprapubic), guarding; mass, rebound; hernia (left inguinal hernia(i reduced it with direct pressure)); left CVA tenderness, right CVA tenderness GENITOURINARY Genitourinary: exam deferred SKIN Skin: warm, dry MUSCULOSKELETAL Musculoskeletal: ROM normal NEUROLOGICAL Neurological: alert, oriented x 3, no gross motor or sensory deficits PSYCHOLOGICAL Psychological: mood/affect normal, judgement normal Results Laboratory Lab results reviewed: Yes (cbc normal except wbc 17,800, bmp normal except cr=2 and k=2.1, ua= +moderate blood, +ketones) Imaging Imaging results reviewed: Yes (+constipation, thicken bladder dome, left inguinal hernia) Diagnostics Tests Diagnostic test(s) reviewed: Yes (ekg= sr with pacs) Procedures Procedures Procedure: I REDUCED LEFT INGUINAL HERNIA WITH DIRECT PRESSURE. NO COMPLICATIONS. PT'S ABDOMINAL PAIN RESOLVED Critical Care Time Subsequent provider I assumed direction of critical care for this patient from another provider of my specialty. Assessment & Plan Assessment & Plan Final Impression: (1) Incarcerated left inguinal hernia (2) Constipation (3) Hypokalemia (4) Dehydration (5) Renal failure (6) Metastatic bone cancer Assessment & Plan spoke to dr bharat mcduffie at 2000hrs and accepts transfer of pt Depart Disposition: ADMITTED Home Meds Reported Medications Lisinopril/Hydrochlorothiazide (LISINOPRIL-HCTZ 20-12.5 MG TAB) 1 Each Tablet, 1 TAB PO DAILY 09/20/18 Tamsulosin Hcl* (FLOMAX*) 0.4 Mg Cap, 0.4 MG PO DAILY, #30 CAP 09/18/18 Atorvastatin Calcium (ATORVASTATIN CALCIUM) 20 Mg Tablet, 10 MG PO HS, #30 TAB 09/18/18 Medications in the ED Cefepime HCl 50 ml @ 100 mls/hr ONCE STAT IV ; Start 10/20/19 at 18:19; Stop 10/20/19 at 18:48; Status APRIL CAMPBELL October 20, 2019 18:32
[2019-10-20] MEDS ORDERED: MAGNESIUM SULFATE 2GM/50ML 50 ML IV ONE ×2 (18:45→19:08)
[2019-10-20] MEDS ORDERED: POTASSIUM CHLORIDE 10MEQ/100ML 100 ML IV ONE (18:45)
[2019-10-20] MEDS ORDERED: SODIUM CHLORIDE FLUSH 10 ML SYR INJ PRN (18:45)
--- NOTE | 2019-10-20 18:50 | NUR ---
REC'D REPORT FROM OFF GOING NS.
[2019-10-20] MEDS ORDERED: SODIUM CHLORIDE 0.9% 250ML 250 ML ONE (18:54)
[2019-10-20] MEDS ORDERED: SODIUM CHLORIDE 0.9% 250ML 250 ML IV ONE (19:00)
--- NOTE | 2019-10-20 19:08 | Diagnostic Imaging Report ---
Examination: Single AP view of the chest. COMPARISON: Chest 2 views 09/18/2018 INDICATION: Abdominal pain and weakness IMPRESSION: 1. Lines and Tubes: None 2. Lungs are grossly clear. No consolidation or effusion. 3. Cardiomediastinal silhouette is normal. Pulmonary vasculature is normal. 4. No acute bony abnormalities. Signed by: Dr. Vick Dunham M.D. on 10/20/2019 7:04 PM
[2019-10-20] MEDS ORDERED: ASPIRIN 81 MG CHEW TAB PO ONE (19:15)
--- NOTE | 2019-10-20 19:23 | NUR ---
BLOOD CX X2, COVID 19 TEST, MAG. TEST, CARDIAC TEST BEING SENT TO [facility] MAIN LAB VIA ALINING INSPECTOR
--- NOTE | 2019-10-20 19:27 | NUR ---
CONSTRUCTION HELPER HERE TO TRANSPORT
--- NOTE | 2019-10-20 19:35 | Diagnostic Imaging Report ---
EXAM: CT Abdomen and Pelvis WITHOUT contrast INDICATION: Abdominal pain, weakness, history of chemotherapy for bone cancer COMPARISON: Pelvis CT 01/30/2019 TECHNIQUE: Abdomen and pelvis were scanned utilizing a multidetector helical scanner from the lung base to the pubic symphysis without administration of IV contrast. Absence of intravenous contrast decreases sensitivity for detection of focal lesions and vascular pathology. Coronal and sagittal reformations were obtained. Routine protocol was performed. IV CONTRAST: None ORAL CONTRAST: None COMPLICATIONS: None RADIATION DOSE: Total DLP: 516 mGy*cm Estimated effective dose: (DLP x 0.015 x size factor) mSv CTDIvol has been reviewed. It is below the limits set by the Radiation Protocol Committee (RPC). Dose modulation, iterative reconstruction, and/or weight based adjustment of the mA/kV was utilized to reduce the radiation dose to as low as reasonably achievable. FINDINGS: LINES and TUBES: None. LOWER THORAX: Dense mitral annular calcifications. Coronary artery hyperdensities could be due to coronary stents are calcific atherosclerosis. Left lower lobe posterobasilar calcified granuloma. HEPATOBILIARY: No focal hepatic lesions. No biliary ductal dilation. GALLBLADDER: No radio-opaque stones or sludge. No wall thickening. SPLEEN: No splenomegaly. PANCREAS: No focal masses or ductal dilatation. ADRENALS: No adrenal nodules KIDNEYS/URETERS: No hydronephrosis. No solid mass lesions. No stones. There are 2 exophytic cysts in the right kidney without suspicious features, largest measures 3.1 cm.. GI TRACT: Small sliding gastric hiatal hernia. Moderate volume of dense stool burden within the rectum and distal colon. Subtle pancolonic wall thickening. No evidence of appendicitis. PELVIC ORGANS/BLADDER: Normal size of the prostate with a few prostatic calcifications. Moderate degree of urinary bladder dome wall thickening with trace perivesicular fat stranding, new compared to 01/30/2019,. LYMPH NODES: No lymphadenopathy. VESSELS: There is moderate atherosclerotic disease in the aorta and major arterial branches. PERITONEUM / RETROPERITONEUM: No free air or fluid. BONES: Increased size and number of numerous sclerotic foci throughout the included skeleton, compared to 01/30/2019, without expansile or destructive features. Advanced degenerative changes in the spine. SOFT TISSUES: Fat and bowel containing left inguinal hernia, contains a short segment of sigmoid colon, increased in size compared to 01/30/2019. Tiny fat and bowel containing right inguinal hernia. No evidence of strangulation or obstruction. IMPRESSION: 1. Moderate volume of dense colonic stool burden, worst in the rectum, suggestive of constipation, correlate for fecal impaction. There is also mild colonic wall thickening, possibly due to colitis. 2. Moderate degree of urinary bladder dome wall thickening with trace perivesicular fat stranding, new compared to 01/30/2019, could be due to cystitis, correlate with urinalysis. The wall thickening is primarily of the bladder dome, underlying malignancy is possible. A short-term follow-up contrast enhanced pelvic CT can further evaluate this wall thickening. 3. Increased size and number of numerous sclerotic foci throughout the included skeleton is consistent with provided history of bone cancer, suspect due to metastasis versus treated myeloma. 4. Dense mitral annular calcific valvular disease and calcific coronary artery atherosclerotic disease. 5. Small sliding gastric hiatal hernia. 6. Increased size of a left inguinal hernia which contains a short segment of sigmoid colon. No evidence of strangulation or obstruction. Signed by: Buck Villarreal DO on 10/20/2019 7:32 PM
[2019-10-20 20:06] LABS: CREATINE KINASE MB 2.8 ng/mL (0-5.0)
[2019-10-20] MEDS ORDERED: ONDANSETRON HCL INJ 2MG/ML 2ML 2 MG/ML VIAL IV PRN (20:15)
[2019-10-20] MEDS ORDERED: MORPHINE SULFATE 2 MG/ML SYR 1ML IV PRN (20:30)
--- OUTSIDE RECORDS SUMMARY | 2019-10-20 20:30 | XMS REPORT ---
Author Author [facility] t Organization [facility] Address [address] [place] [address] Phone Unavailable Care Team Providers Care Seasoner Name Role Phone Mahin POWELL Attphys Unavailable CHUCK HENRY Attphys Unavailable Melvin HU Attphys Unavailable Payers Payer Name Policy Type Policy Number Effective Date Expiration Date S ource Problems This patient has no known problems. Allergies, Adverse Reactions, Alerts Allergy Name Allergy Type Status Severity Reaction(s) Onset Date Inacti ve Date Treating Clinician Comments Source No Known Allergies DA Active U 2019-05-08 00:00:00 [facility] Medications This patient has no known medications. Procedures This patient has no known procedures. Results Test Description Test Time Test Comments Results Result Comments Source CT ABD/PEL WO CONTRAST-HOPD 2019-10-20 19:13:00 [facility] [address] [place], [place] [address] Patient Name: RAPHAEL HERNADEZ MR #: [id number] : 1940 Age/Sex: 78/M Req #: [id number] Adm Physician: Ordered by: APRIL POWELL Report #: [id number] Location: [facility] Room/Bed: Procedure: [id number] HOPD/CT ABD/PEL WO CONTRAST-HOPD Exam Date: 10/20/19 Exam Time: 1850 REPORT STATUS: Signed EXAM: CT Abdomen and Pelvis WITHOUT contrast INDICATION: Abdominal pain, weakness, history of chemotherapy for bone cancer COMPARISON: Pelvis CT 01/30/2019 TECHNIQUE: Abdomen and pelvis were scanned utilizing a multidetector helical scanner from the lung base to the pubic symphysis without administration of IV contrast. Absence of intravenous contrast decreases sensitivity for detection of focal lesions and vascular pathology. Coronal and sagittal reformations were obtained. Routine protocol was performed. IV CONTRAST: None ORAL CONTRAST: None COMPLICATIONS: None RADIATION DOSE: Total DLP: 516 mGy*cm Estimated effective dose: (DLP x 0.015 x size factor) mSv CTDIvol has been reviewed. It is below the limits set by the Radiation Protocol Committee (RPC). Dose modulation, iterative reconstruction, and/or weight based adjustment of the mA/kV was utilized to reduce the radiation dose to as low as reasonably achievable. FINDINGS: LINES and TUBES: None. LOWER THORAX: Dense mitral annular calcifications. Coronary artery hyperdensities could be due to coronary stents are calcific atherosclerosis. Left lower lobe posterobasilar calcified granuloma. HEPATOBILIARY: No focal hepatic lesions. No biliary ductal dilation. GALLBLADDER: No radio-opaque stones or sludge. No wall thickening. SPLEEN: No splenomegaly. PANCREAS: No focal masses or ductal dilatation. ADRENALS: No adrenal nodules KIDNEYS/URETERS: No hydronephrosis. No solid mass lesions. No stones. There are 2 exophytic cysts in the right kidney without suspicious features, largest measures 3.1 cm.. GI TRACT: Small sliding gastric hiatal hernia. Moderate volume of dense stool burden within the rectum and distal colon. Subtle pancolonic wall thickening. No evidence of appendicitis. PELVIC ORGANS/BLADDER: Normal size of the prostate with a few prostatic calcifications. Moderate degree of urinary bladder dome wall thickening with trace perivesicular fat stranding, new compared to 01/30/2019,. LYMPH NODES: No lymphadenopathy. VESSELS: There is moderate atherosclerotic disease in the aorta and major arterial branches. PERITONEUM / RETROPERITONEUM: No free air or fluid. BONES: Increased size and number of numerous sclerotic foci throughout the included skeleton, compared to 01/30/2019, without expansile or destructive features. Advanced degenerative changes in the spine. SOFT TISSUES: Fat and bowel containing left inguinal hernia, contains a short segment of sigmoid colon, increased in size compared to 01/30/2019. Tiny fat and bowel containing right inguinal hernia. No evidence of strangulation or obstruction. IMPRESSION: 1. Moderate volume of dense colonic stool burden, worst in the rectum, suggestive of constipation, correlate for fecal impaction. There is also mild colonic wall thickening, possibly due to colitis. 2. Moderate degree of urinary bladder dome wall thickening with trace perivesicular fat stranding, new compared to 01/30/2019, could be due to cystitis, correlate with urinalysis. The wall thickening is primarily of the bladder dome, underlying malignancy is possible. A short-term follow-up contrast enhanced pelvic CT can further evaluate this wall thickening. 3. Increased size and number of numerous sclerotic foci throughout the included skeleton is consistent with provided history of bone cancer, suspect due to metastasis versus treated myeloma. 4. Dense mitral annular calcific valvular disease and calcific coronary artery atherosclerotic disease. 5. Small sliding gastric hiatal hernia. 6. Increased size of a left inguinal hernia which contains a short segment of sigmoid colon. No evidence of strangulation or obstruction. Signed by: Buck Mahmood DO on 10/20/2019 7:32 PM Dictated By: BUCK MAHMOOD DO 31 Transcribed By: JOSEPH on 10/20/191931 COPY TO: APRIL POWELL CXR 1 [facility] 2019-10-20 19:04:00 [place] [address] Patient Name: RAPHAEL HERNADEZ MR #: [id number] : 1940 Age/Sex: 78/M Req #: [id number] Adm Physician: Ordered by: APRIL POWELL Report #: [id number] Location: [facility] Room/Bed: Procedure: [id number] HOPD/CXR 1 VEW - HOPD Exam Date: 10/20/19 Exam Time: 1845 REPORT STATUS: Signed Examination: Single AP view of the chest. COMPARISON: Chest 2 views 09/18/2018 INDICATION: Abdominal pain and weakness IMPRESSION: 1. Lines and Tubes: None 2. Lungs are grossly clear. No consolidation or effusion. 3. Cardiomediastinal silhou ette is normal. Pulmonary vasculature is normal. 4. No acute bony abnormalities. Signed by: Dr. Vick Bates M.D. on 10/20/2019 7:04 PM Dictated By: VICK BATES MD 03 Transcribed By: JOSEPH on 10/20/191903 COPY TO: APRIL POWELL BONE,BIOPSY 2019-05-13 16:50:00 RUN DATE: 05/13/19 [facility] PAGE 1 RUN TIME: 1650 Specimen Inquiry RUN USER: INTERFACE PATIENT: RAPHAEL HERNADEZ EDD LOC: [place] #: [id number] AGE/SX: 78/M ROOM: RE05/09/19REG DR: Fabien Hess MD : 41 BED: DIS: STATUS: [facility] TLOC: SPEC #: [id number] RECD: 05/09/19 STATUS: [facility] #: [id number] JAVIER: 05/09/[address] [facility] [address]: Fabien Hess MD ENTERED: 05/09/19 SP TYPE: BX BONE OTHR DR: Brittany Reed MD TUMOR REGISTRYORDERED: GROSS COPIES TO: Brittany Reed MD [address] [facility]. [address] [place] [address] TUMOR REGISTRY Fabien Hess MD [address] [place] [address] MARKERS: INTRADEPARTMENTAL CONSULT, MALIGNANCY PROCEDURES: GROSS (05/13/19-1524) TISSUES: 1. BONE - RINSE, 6 SLIDES 2. BONE MARROW, NOS - BX CLINICAL HISTORY COLLECTION DATE: 05/09/19 HISTORY PROSTATE CANCER COMMENT Immunostains were prepared on the bone core biopsy at [facility] and interpreted at [facility]. The controls stain appropriately. The tumor is positive for PSA and PSAP. The findings are consistent with metastatic prostate carcinoma. Intradepartmental consultation: RRB. CONTINUED ON NEXT PAGE RUN DATE: 05/13/19 [facility] PAGE 2 RUN TIME: 1650 Specimen Inquiry RUN USER: INTERFACE SPEC #: [id number] PATIENT: RAPHAEL HERNADEZ MABEL #[id number] (Continued) FINAL DIAGNOSIS Right iliac bone, fine needle aspirate biopsy: RARE COLLECTIONS OF ATYPICAL GLANDULAR EPITHELIAL CELLS WITH PROMINENT NUCLEOLI CONSISTENT WITH METASTATIC PROSTATIC CARCINOMA FEW BONE MARROW ELEMENTS SEEN POSITIVE FOR MALIGNANCY Right iliac bone, core biopsy: METASTATIC TUMOR CONSISTENT WITH METASTATIC PROSTATE CARCINOMA, BONE DMW/estela D 97367, 49711, 31316, 77792 MACROSCOPIC The specimens consist of six aspirate [...] follow up microscopic evaluation. GROSS PERFORMED AT [facility] [address] [place] [address] [phone] MICROSCOPIC All of the stains, including any controls performed, stain appropriately. MICROSCOPIC PERFORMED AT [facility] [address] [place] [address] [phone])[phone] PERFORMING SITE Diagnosis performed at: [facility] [address] CONTINUED ON NEXT PAGE RUN DATE: 05/13/19 [facility] PAGE 3 RUN TIME: 1650 Specimen Inquiry RUN USER: INTERFACE SPEC #: [id number] PATIENT: RAPHAEL HERNADEZ EDD #[id number] (Continued) PERFORMING SITE (Continued) [place] [address] Signed SIGNATURE ON FILE Shakira Ramires MD 05/13/19 2332 -------- ---- END OF REPORT - CT GUID ON LICENSE OF [facility] 2019-05-12 21:34:00 Name: RAPHAEL HERNADEZ EDD [facility] : 1940 Age/S: 78 / M [address] [facility] Unit #: [id number] Loc: [place] [address] Phys: Fabien Hess MD Acct: [id number] Dis Date: Status: [facility] PHONE #: [phone] Exam Date: 05/09/2019 1200 FAX #: [phone] Reason: EXAMS: CPT CODE: [id number] CT GUID ON LICENSE OF [facility] [address] EXAM: CT-guided pelvic bone biopsy; INFORMATION: Patient [...] within the right iliac wing. Location code: [facility] at 6594 Reported and signed by: Fabien Hess M.D. CC: Brittany Reed MD; Fabien Hess MD Technologist:Chan Vuong RT(R),(MR),(CT) CTDI: DLP: Trnscb Date/Time: 05/12/2019 (2133) [email or web address] Orig Print D/T: S: 05/12/2019 (0) PAGE 1 Signed Report - CT GUID ON LICENSE OF [facility] 2019-05-12 21:34:00 Name: RAPHAEL HERNADEZ EDD [facility] : 1940 Age/S: 78 / M [address] [facility] Unit #: [id number] Loc: [place] [address] Phys: Fabien Hess MD Acct: [id number] Dis Date: Status: [facility] PHONE #: [phone] Exam Date: 05/09/2019 1200 FAX #: [phone] Reason: BONE MARROW BX EXAMS: CPT CODE: [id number] CT GUID ON LICENSE OF [facility] [address] EXAM: CT-guided pelvic bone biopsy; INFORMATION: Patient [...] within the right iliac wing. Location code: [facility] at 2134 Reported and signed by: Fabien Hess M.D. CC: Brittany Reed MD; Fabien Hess MD Technologist:Chan Vuong RT(R),(MR),(CT) CTDI: DLP: Trnscb Date/Time: 05/12/2019 (2133) Jose LGRW Orig Print D/T: S: 05/12/2019 (2136) PAGE [...] CA) 9.4 mg/dL 8.5-10.1 N BASIC METABOLIC [id number] 10:17:00* Test Item Value Reference Range Interpretation [...] code = CA) mg/dL 8.5-10.1 CBC W/AUTO [id number] 09:53:00* Test Item Value Reference Range Interpretation [...] (test code = MDIFF) NO CBC W/AUTO [id number] 09:50:00* Test Item Value Reference Range Interpretation [...] code = BA#) K/mm3 0.0-0.2 BASIC METABOLIC [id number] 16:32:00* Test Item Value Reference Range Interpretation [...] CA) 9.5 mg/dL 8.5-10.1 N BASIC METABOLIC [id number] 16:26:00* Test Item Value Reference Range Interpretation [...] (test code = CA) mg/dL 8.5-10.1 PROTHROMBIN [id number] 11:01:00* Test Item Value Reference Range Interpretation [...] Mechanical prosthetic heart valves (2.5-3.5) THROMBOPLASTIN TIME [id number] 11:01:00* Test Item Value Reference Range Interpretation Comments THROMBOPLASTIN TIME PARTIAL (test code = PTT) 28.9 seconds 25.0-36. 5 N - CT PELVIS W/O [id number] 15:39:00 Name: RAPHAEL HERNADEZ EDD [facility] : 1940 Age/S: 78 / M [address] [facility] Unit #: [id number] Loc: [place] [address] Phys: Fabien Hess MD Acct: [id number] Dis Date: Status: [facility] CLI PHONE #: [phone] Exam Date: 05/02/2019 4638 FAX #: [phone] Reason: PROSTATE CA Report Has Been Amended EXAMS: CPT CODE: [id number] CT PELVIS W/O CONTRAST 34759 Addendum - 05/05/2019 SIGNED 05/05/2019 ADDENDUM: [id number] CT/CTPELVISWO Upon review with the ordering clinician, [...] malignant appearing lesions in the spine. at 1539 Reported and signed by: Dario Guillen MD Transcribed: 05/05/2019 (8330) [email or web address] [address] CT OF THE PELVIS WITH SAGITTAL AND CORONAL RECONSTRUCTIONS DIAGNOSIS: Prostate cancers COMPARISON: No prior studies are available at this institution Noncontrast CT were performed with thin sections and reconstructions were obtained. CT radiation dose optimization is achieved for this examination by the use of a CT protocol in accordance with ACR practice standards and adherence to computer forensics analyst's recommendations. FINDINGS: Calcified granulomas present in the [...] contrast. PAGE 1 Signed Report (CONTINUED) Name: RAPHAEL HERNADEZ EDD [facility] : 1940 Age/S: 78 / M [address] [facility] Unit #: [id number] Loc: [place] [address] Phys: Fabien Hess MD Acct: [id number] Dis Date: Status: [facility]P CLI PHONE #: [phone] Exam Date: 05/02/2019 8232 FAX #: [phone] Reason: PROSTATE CA Report Has Been Amended EXAMS: CPT CODE: [id number] CT PELVIS W/O CONTRAST 944[address] <Continued> Atherosclerotic disease is seen throughout the [...] Vuong RT(R),(MR),(CT) CTDI: DLP: Trnscb Date/Time: 05/02/2019 (1509) [email or web address] Orig Print D/T: S: 05/02/2019 (8990) PAGE 2 Signed Report - CT PELVIS W/O [id number] 15:09:00 Name: RAPHAEL HERNADEZ EDD [facility] : 1940 Age/S: 78 / M [address] [facility] Unit #: [id number] Loc: [place] [address] Phys: Fabien Hess MD Acct: [id number] Dis Date: Status: REG CLI PHONE #: [phone] Exam Date: 05/02/2019 1355 FAX #: [phone] Reason: PROSTATE CA EXAMS: CPT CODE: [id number] CT PELVIS W/O CONTRAST 22558 CT OF THE PELVIS WITH SAGITTAL AND CORONAL RECONSTRUCTIONS DIAGNOSIS: Prostate cancers COMPARISON: No prior studies are available at this institution Noncontrast CT were performed with thin sections and reconstructions were obtained. CT radiation dose optimization is achieved for this examination by the use of a CT protocol in accordance with ACR practice standards and adherence to computer forensics analyst's recommendations. FINDINGS: Calcified granulomas present in the [...] CC: Aminata Mendez MD; Chuck Henry MD Technologist:Vuong,Chan RT(R),(MR),(CT) CTDI: DLP: Trnscb Date/Time: 05/02/2019 (9093) [email or web address] Orig Print D/T: S: 05/02/2019 (2415) PAGE 1 Signed Report BONE and/or JOINT WHOLE BODY 2019-01-30 18:46:00 [place] [address] Patient Name: RAPHAEL HERNADEZ MR #: [id number] : 1940 Age/Sex: 78/M Req #: [id number] Adm Physician: Ordered by: CHUCK HENRY MD Report #: [id number] Location: [place] Room/Bed: Procedure: [id number] NM/BONE and/or JOINT WHOLE BODY Exam Date: 01/30/19 Exam Ti me: 0855 REPORT STATUS: Signed B one Scan, delayed phase INDICATION: Prostate cancer; rising PSA. MIGUELANGEL DAY: Prior bone scan 04/19/2018; CT pelvis 01/30/2019 [...] COPY TO: CHUCK HENRY MD CT PELVIS [id number] 09:54:00 [place] [address] Patient Name: RAPHAEL HERNADEZ MR #: [id number] : 1940 Age/Sex: 78/M Req #: [id number] Adm Physician: Ordered by: CHUCK HENRY MD Report #: [id number] Location: [place] Room/Bed: Procedure: CT/CT P JAN W Exam Date: 01/30/19 [...] COPY TO: CHUCK MONGE MD CHEST 2 [id number] 12:04:00 [place] [address] Patient Name: RAPHAEL HERNADEZ MR #: [id number] : 1940 Age/Sex: 77/M Req #: [id number] Adm Physician: Ordered by: CHUCK HENRY MD Report #: [id number] Location: [place] Room/Bed: Procedure: [id number] DX/CHES T 2 VIEWS Exam Date: 09/18/18 [...] 12:06 PM Dictated By: PRICILA CAMPBELL MD COPY TO: Sherice HENRY MD BONE and/or JOINT WHOLE [id number] 15:30:00 [place] [address] Patient Name: RAPHAEL HERNADEZ MR #: [id number] : 1940 Age/Sex: 77/M Req #: [id number] [facility] Physician: Ordered by: CHUCK HENRY MD Report #: [id number] Location: [place] Room/Bed: Procedure: [id number] NM/BONE and/or JOINT WHOLE BODY Exam Date: 04/19/18 Exam Ti me: 0900 REPORT STATUS: Signed [...] 4:24 PM Dictated By: SUZANNE CUADRA MD 162 COPY TO: VICENTE HENRY RD, MD MRI PELVIS [id number] 12:10:00 [place] [address] Patient Name: RAPHAEL HERNADEZ MR #: [id number] : 1940 Age/Sex: 77/M Req #: [id number] Adm Physician: Ordered by: CHUCK HENRY MD Report #: [id number] Location: [place] Room/Bed: Procedure: [id number] MRI/MRI PELVIS WOW Exam Date: Exam Time: [...] CHUCK HENRY MD KNEE 1-2 VIEWS BILATERAL [facility] [address] [place] [address] Patient Name: RAPHAEL HERNADEZ MR #: [id number] : 1940 Age/Sex: 76/M Req #: [id number] Adm Physician: Ordered by: RAFA HU MD Report #: [id number] Location: [facility] Room/Bed: Procedure: [id number] DX/KNEE 1-2 VIEWS BILATERAL Exam Da te: [...] gned By: WILD KHOURY MD on 09/06/17 1515 Transcribed By: MARYLIN on 09/06/17 6185 COPY TO: RAFA HU MD
[2019-10-20] MEDS ORDERED: MORPHINE SULFATE INJ 4 MG/ML INJ 1ML IV PRN (20:45)
--- NOTE | 2019-10-20 20:55 | NUR ---
CALLED REPORT TO YFN MUHAMMAD FOR RM 202.
--- NOTE | 2019-10-20 21:40 | NUR ---
REPORT TO EMS
[2019-10-20] MEDS ORDERED: BISACODYL 5 MG TAB EC PO PRN (22:15)
[2019-10-20] MEDS ORDERED: MAGNESIUM HYDROXIDE 30 ML UDC PO PRN (22:15)
[2019-10-20] MEDS ORDERED: BISACODYL 5 MG TAB EC PO ONE (22:15)
[2019-10-20] MEDS ORDERED: BISACODYL 10 MG SUPP PR ONE (22:15)
[2019-10-20] MEDS ORDERED: BISACODYL 10 MG SUPP PR PRN (22:15)
[2019-10-20] MEDS ORDERED: MAGNESIUM HYDROXIDE 30 ML UDC PO ONE (22:15)
[2019-10-20 22:17] VITALS: BP 144/91
[2019-10-20] MEDS: POTASSIUM CHLORIDE 40 MEQ in SODIUM CHLORIDE 0.9% 1000ML 1,000 ML IV SCH (23:24)
[2019-10-20] MEDS: METRONIDAZOLE 500MG/NS 100ML 100 ML IV SCH (23:25)
[2019-10-20] MEDS: FAMOTIDINE 20 MG/2 ML VIAL IV SCH (23:25)
[2019-10-20] MEDS: CEFTRIAXONE SOD 1 GM/NS 50 ML 50 ML IV SCH (23:54)
[2019-10-21] VITALS (8 sets, daily range): BP systolic 120–142; BP diastolic 74–86
[2019-10-21 05:30] LABS: BASOPHILS # (AUTO) 0.1 (0.0-0.1); BASOPHILS % 0.5 % (0.0-1.0); EOSINOPHILS # (AUTO) 0.1 (0.0-0.4); EOSINOPHILS % 0.7 % (0.0-6.0); HEMATOCRIT 38.8 % (38.2-49.6); HEMOGLOBIN 12.6 g/dL (14.0-18.0); LYMPHOCYTES # (AUTO) 1.8 (1.0-3.2); LYMPHOCYTES % 11.6 % (18.0-39.1); MEAN CORPUSCULAR HEMOGLOBIN 29.2 pg (28-32); MEAN CORPUSCULAR HGB CONC 32.5 g/dL (31-35); MONOCYTES # (AUTO) 1.4 (0.2-0.8); MONOCYTES % 8.7 % (4.4-11.3); NEUTROPHILS # (AUTO) 12.3 (2.1-6.9); NEUTROPHILS % 77.9 % (38.7-80.0); PLATELET COUNT 370 x10e3/uL (140-360); RED BLOOD COUNT 4.31 x10e6/uL (4.3-5.7); RED CELL DISTRIBUTION WIDTH 12.7 % (11.7-14.4)
[2019-10-21 05:55] LABS: ALBUMIN 2.8 g/dL (3.5-5.0); ALBUMIN/GLOBULIN RATIO 0.7 (0.8-2.0); ANION GAP 16.6 mmol/L (8-16); CALCIUM 8.8 mg/dL (8.4-10.2); CREATININE, SERUM 1.97 mg/dL (0.72-1.25); MAGNESIUM 2.6 MG/DL (1.3-2.1)
[2019-10-21 05:57] LABS: POTASSIUM 2.6 mmol/L (3.5-5.1)
[2019-10-21] MEDS: METRONIDAZOLE 500MG/NS 100ML 100 ML IV SCH ×3 (06:09→22:00)
[2019-10-21 06:13] LABS: CREATINE KINASE MB 4.9 ng/mL (0-5.0)
--- NOTE | 2019-10-21 06:21 | NUR ---
CALLED NEW CONSULT TO DR. ORTIZ, AWAITING CALL BACK.
[2019-10-21 06:27] LABS: PHOSPHORUS 3.1 MG/DL (2.3-4.7)
[2019-10-21 06:46] LABS: THYROID STIMULATING HORMONE 0.795 uIU/mL (0.350-4.940)
--- NOTE | 2019-10-21 07:00 | NUR ---
BEDSIDE SHIFT REPORT RECEIVED FROM VETERINARY LABORATORY DIAGNOSTICIAN RN. PT DENIES NEEDS AT THIS TIME.
[2019-10-21] MEDS ORDERED: POTASSIUM CHLORIDE 20 MEQ TAB CR PO ONE ×2 (07:45→11:00)
[2019-10-21] MEDS: POTASSIUM CHLORIDE 40 MEQ in SODIUM CHLORIDE 0.9% 1000ML 1,000 ML IV SCH ×3 (08:47→20:00)
[2019-10-21] MEDS: FAMOTIDINE 20 MG/2 ML VIAL IV SCH ×2 (08:47→17:20)
[2019-10-21] MEDS: SENNA-S TABLET PO SCH ×2 (09:49→17:00)
--- NOTE | 2019-10-21 13:30 | Consultation ---
DATE OF CONSULTATION: 10/21/2019 CHIEF COMPLAINT: Constipation and abdominal pain. HISTORY OF PRESENT ILLNESS: The patient is a 78-year-old male with known history of metastatic bone cancer with abdominal pain diffusely with constipation. No vomiting. The patient also was found to have a left inguinal hernia. He denies pain in the groin area. PAST MEDICAL HISTORY: As mentioned significant for hypertension, hyperlipidemia, and metastatic bone cancer. ALLERGIES: HE HAS NO DRUG ALLERGIES. SOCIAL HABITS: He denies smoking or alcohol use. REVIEW OF SYSTEMS: He has no chest pain, shortness of breath, cough, or fevers. PHYSICAL EXAMINATION: VITAL SIGNS: Stable, afebrile. GENERAL: He is awake, alert, in no apparent distress. HEENT: Sclerae nonicteric. NECK: Supple. LUNGS: Clear. HEART: Regular rate and rhythm. ABDOMEN: Soft. There is a left inguinal hernia, which is reducible. Abdomen otherwise soft and non guarding or tender. EXTREMITIES: No cyanosis or edema. LABORATORY DATA: White cell count is 15, hemoglobin of 12, and platelet count 370. Creatinine 1.[address] of the abdomen does show constipation with fecal load in the rectum consistent with fecal impaction, possible mild colonic thickening due to colitis. Numerous sclerotic foci within the skeleton consistent with metastatic bone cancer. There is an incarcerated left inguinal hernia containing a loop of sigmoid colon. ASSESSMENT: Fecal impaction and a finding of incarcerated left sigmoid colon in inguinal hernia. PLAN: The patient has responded to enemas with some bowel movement. The left inguinal hernia is reducible and the patient at this point is declining surgical intervention. We will follow. MD SADAF Kay/YANI /[id number]
--- NOTE | 2019-10-21 14:20 | History and Physical ---
PRIMARY CARE PHYSICIAN: Dr. Gildardo Downs. CONSULTANTS: 1. Dr. Wallace Stockton. 2. Dr. Ramo Chase. 3. Dr. Hammad Frost. CHIEF COMPLAINT: Abdominal pain, left groin inguinal hernia reducible, and also low potassium. HISTORY OF PRESENT ILLNESS: This is a 78-year-old male with prostate cancer, metastasis to the bone. The patient did receive chemotherapy and injection approximately two weeks ago. The patient came in because he was having increasing abdominal pain, found to have low potassium level of 2.6. The patient did receive potassium replacement. He is on IV fluid as well. The patient apparently having severe constipation from the imaging test. He also has a left inguinal hernia that is reducible and after reducing the hernia, the patient's pain improved. He did receive multiple bowel protocol and did have a bowel movement. His last bowel movement was approximately one week ago. The patient is otherwise stable at this time. PAST MEDICAL HISTORY: Prostate cancer with metastasis, undergoing chemotherapy, hypertension, and dyslipidemia. PAST SURGICAL HISTORY: The patient is a poor historian. SOCIAL HISTORY: The patient does not smoke or use alcohol. No regular drugs. ALLERGIES: NO KNOWN ALLERGIES. HOME MEDICATIONS: 1. Lipitor. 2. Lisinopril. 3. HCTZ. 4. Flomax. PHYSICAL EXAMINATION: VITAL SIGNS: Temperature is 97, blood pressure 132/74, pulse rate 84, and respirations 20. GENERAL: The patient is awake, alert, not in any distress. HEENT: Normocephalic and atraumatic. Anicteric. NECK: Supple grossly. PULMONARY: Clear. CARDIOVASCULAR: Regular rate and rhythm. ABDOMEN: Left inguinal hernia noticed. Tender to touch. No sign of infection. EXTREMITIES: No cyanosis or edema. NEUROLOGIC: No focal deficit. Moving all extremities. LABORATORY DATA: Sodium is 139, potassium 2.6, chloride 104, bicarb 21, BUN 30, creatinine 1.9, and glucose is 105. WBC 15.7, hemoglobin 12.6, hematocrit 38.8, and platelets 370. Urinalysis was done at the Urgent Care. IMAGING DATA: Imaging tests that were done at Urgent Care as well, showing that the patient has moderate volume dense colonic burden, stool burden, worse in the rectal area. Moderate degree of urinary bladder dome for thickening. Dense mitral annular calcific valvular disease and calcific coronary artery atherosclerosis disease noted. Small gastric hiatal hernia. Increased size of left inguinal hernia with contained short segment of sigmoid colon. No strangulation or obstruction. IMPRESSION: 1. Leukocytosis, most likely infection could be prostatitis. The patient is on empiric antibiotic treatment. 2. Low potassium secondary to HCTZ. 3. Constipation, moderately to severe, may be causing obstruction from the urine flow. 4. Baseline prostate cancer with metastasis to the bone. PLAN: Dr. Nicholson has been consulted. The patient's oncologist is Dr. Ramo Chase. We will consult Dr. Chase. The patient's urologist is Dr. Hammad Frost. We will consult Dr. Frost. Continue IV antibiotics. Repeat lab work. Normal saline with potassium. Pain control. Stool management. MD JOSE ANGEL Pappas/SLOANEL /[id number]
--- NOTE | 2019-10-21 16:33 | NUR ---
Nutrition Intervention Note RD Recommendation(s) for Physician: - As feasible, ADAT to goal of GI Soft - Recommend Ensure Clear TID while on CLD Pt meets criteria for acute moderate protein calorie malnutrition Plan of Care: RD following, monitoring for tolerance and adequacy. Diet and ONS rec's. Nutrition reason for involvement: Nutrition Risk Trigger RD Assessment: (10/20) 78 YOM admitted for abdominal pain and hypokalemia, seen today per MST screen. Pt reports decreased appetite x 2 weeks with meal intake of 50-75% of typical intake. Pt reports UBW of 160#, noted 3% wt loss. Pt denies any N/V/C/D. Pt reports tolerating CLD. Pt and family at bedside with no questions or concerns at time of visit. Chart reviewed. Labs and meds reviewed. Will continue to monitor. Primary Diagnose(s): acute abd pain, hypokalemia PMH: HTN, prostate cancer with bone mets- on chemotherapy and injections, recent L inguinal hernia GI: LBM 10/20 Skin: intact Labs: 10/20: Na 139, K 3.6, BUN 30, Cr 1.97, Gluc 105, Ca 8.8, Phos 3.1, Mg 2.6 Meds: KCl IVPB, senokot-s, pepcid, abx, dulcolax, morphine, zofran Ht: 69 in Wt: 155.38 lb BMI: 22.9 kg/m2 IBW: 160 lb Malnutrition Evaluation (10/21/19) The patient meets criteria for MODERATE protein-calorie malnutrition. Energy intake: Moderated- <75% of estimated energy requirements for >7 days Weight loss: Moderate- 3% wt loss in 2 weeks, UBW of 160# Fat loss: none, bulging eye pads Muscle loss: none, shoulder round Supporting Evidence: Fluid accumulation: none Functional Status: not assessed Nutrition Prescription (Diet Order): Clear liquids Estimated Nutritional Needs: 7638-5453 calories/day (25-30 kcal/kg CBW) 71-106 g protein/day (1-1.5 g pro/kg CBW) Diet Adequacy: Not meeting calorie needs, Not meeting protein needs Diet Tolerance: tolerating CLD Diet Education Needs Assessment: Diet education not indicated, patient on temporary/transition diet. Nutrition Care Level: moderate Nutrition Diagnosis: Inadequate energy and protein intake related to abdominal pain and decreased appetite as evidenced by wt loss and not meeting needs. Goal: Patient will meet 75-100% of estimated needs by follow up Progress: N/A Interventions: -Fiber modified diet, Commercial beverage, Recommended Modifications, Collaboration with other providers Monitoring/Evaluation: -Total energy intake, Total protein intake, Modified diet, Liquid supplement, Weight change Signed: Erika Jc RD, LD, [facility]
[2019-10-21 20:05] LABS: CREATINE KINASE MB 7.5 ng/mL (0-5.0)
[2019-10-21] MEDS: CEFTRIAXONE SOD 1 GM/NS 50 ML 50 ML IV SCH (23:00)
[2019-10-22] VITALS (7 sets, daily range): BP systolic 112–132; BP diastolic 62–72
[2019-10-22] MEDS: POTASSIUM CHLORIDE 40 MEQ in SODIUM CHLORIDE 0.9% 1000ML 1,000 ML IV SCH ×2 (04:55→13:02)
[2019-10-22 05:17] LABS: BASOPHILS # (AUTO) 0.1 (0.0-0.1); BASOPHILS % 0.6 % (0.0-1.0); EOSINOPHILS # (AUTO) 0.6 (0.0-0.4); EOSINOPHILS % 4.2 % (0.0-6.0); HEMATOCRIT 35.3 % (38.2-49.6); HEMOGLOBIN 11.4 g/dL (14.0-18.0); LYMPHOCYTES # (AUTO) 1.8 (1.0-3.2); LYMPHOCYTES % 12.7 % (18.0-39.1); MEAN CORPUSCULAR HEMOGLOBIN 29.1 pg (28-32); MEAN CORPUSCULAR HGB CONC 32.3 g/dL (31-35); MEAN CORPUSCULAR VOLUME 90.1 fL (81-99); MONOCYTES # (AUTO) 1.2 (0.2-0.8); MONOCYTES % 8.6 % (4.4-11.3); NEUTROPHILS # (AUTO) 10.4 (2.1-6.9); NEUTROPHILS % 73.3 % (38.7-80.0); PLATELET COUNT 389 x10e3/uL (140-360); RED BLOOD COUNT 3.92 x10e6/uL (4.3-5.7); RED CELL DISTRIBUTION WIDTH 12.9 % (11.7-14.4)
[2019-10-22] MEDS: METRONIDAZOLE 500MG/NS 100ML 100 ML IV SCH ×3 (05:38→22:00)
[2019-10-22 05:40] LABS: ANION GAP 13.2 mmol/L (8-16); CALCIUM 8.1 mg/dL (8.4-10.2); CREATININE, SERUM 1.62 mg/dL (0.72-1.25); POTASSIUM 3.2 mmol/L (3.5-5.1)
--- NOTE | 2019-10-22 07:00 | NUR ---
Received patient ambulates to the bathroom with family member's assistance. Respiration even and unlabored without SOB. Call light in reach.
[2019-10-22] MEDS: FAMOTIDINE 20 MG/2 ML VIAL IV SCH ×2 (08:47→15:14)
[2019-10-22] MEDS: SENNA-S TABLET PO SCH ×3 (09:00→15:18)
--- NOTE | 2019-10-22 19:50 | NUR ---
Bedside report given to night nurse. Patient awake, alert, respiration even and unlabored without SOB. Son at bedside. Call light in reach.
[2019-10-22] MEDS: CEFTRIAXONE SOD 1 GM/NS 50 ML 50 ML IV SCH (22:30)
[2019-10-23] VITALS: BP 122/87
[2019-10-23] MEDS ORDERED: HYDRALAZINE HCL 20 MG/ML VIAL IV PRN (00:30)
[2019-10-23] MEDS: POTASSIUM CHLORIDE 40 MEQ in SODIUM CHLORIDE 0.9% 1000ML 1,000 ML IV SCH ×2 (01:13→05:25)
[2019-10-23 04:00] VITALS: BP 118/78
[2019-10-23 05:43] LABS: BASOPHILS # (AUTO) 0.1 (0.0-0.1); BASOPHILS % 0.9 % (0.0-1.0); EOSINOPHILS # (AUTO) 0.7 (0.0-0.4); EOSINOPHILS % 6.5 % (0.0-6.0); HEMATOCRIT 34.3 % (38.2-49.6); HEMOGLOBIN 11.2 g/dL (14.0-18.0); LYMPHOCYTES # (AUTO) 2.2 (1.0-3.2); LYMPHOCYTES % 19.5 % (18.0-39.1); MEAN CORPUSCULAR HEMOGLOBIN 29.5 pg (28-32); MEAN CORPUSCULAR HGB CONC 32.7 g/dL (31-35); MEAN CORPUSCULAR VOLUME 90.3 fL (81-99); MONOCYTES # (AUTO) 0.8 (0.2-0.8); MONOCYTES % 7.4 % (4.4-11.3); NEUTROPHILS # (AUTO) 7.4 (2.1-6.9); NEUTROPHILS % 65.3 % (38.7-80.0); PLATELET COUNT 404 x10e3/uL (140-360)
[2019-10-23] MEDS: METRONIDAZOLE 500MG/NS 100ML 100 ML IV SCH (06:00)
[2019-10-23 06:05] LABS: ANION GAP 12.3 mmol/L (8-16); CREATININE, SERUM 1.46 mg/dL (0.72-1.25); POTASSIUM 3.3 mmol/L (3.5-5.1)
[2019-10-23 08:00] VITALS: BP 118/72
[2019-10-23] MEDS: SENNA-S TABLET PO SCH (09:00)
[2019-10-23] MEDS ORDERED: ONDANSETRON HCL 4 MG ORAL DISINTEGRATING TAB PO PRN (09:45)
[2019-10-23] MEDS ORDERED: POTASSIUM CHLORIDE 10MEQ EA PO ONE (09:55)
--- NOTE | 2019-10-24 03:38 | Discharge Summary ---
PRIMARY CARE PHYSICIAN: Dr. Gildardo Downs. CONSULTANTS: 1. Wallace Nicholson MD. 2. Aminata Mendez MD. 3. Hammad Frost MD. FINAL DIAGNOSES: 1. Generalized weakness associated with low potassium secondary to blood pressure medication with hydrochlorothiazide. 2. Left inguinal hernia, incarcerated, but reducible, subsequently pain control, may need surgical intervention later date. 3. 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 SUMMARY: The patient is a 78-year-old male, ongoing chemotherapy. The patient came to the hospital because of generalized weakness and increase in abdominal pain. The patient had left inguinal hernia that is reducible subsequently. Found that the patient has severe constipation. The patient was taking pain medication at home for his generalized pain and became constipated. The patient had good bowel movement, bowel cleansing was done. The patient is otherwise stable at this time. Potassium was low, but could be corrected. Today is 3.3, and the patient will get more potassium. He was dehydrated as well. The patient is otherwise stable. He will go home. He will continue his home medication. He will follow up with his family physician within a week and Dr. Wallace Nicholson within 1 to 2 weeks for evaluation of his left inguinal hernia that was reducible. The patient is otherwise stable, discharged home today and follow up as an outpatient as instructed. The patient will need to have himself rehydrated. He may need to have his blood pressure medication adjustment. The patient is otherwise stable at this time. I suggest the patient to follow up with Dr. Gildardo Downs, his family physician for adjustment of his blood pressure medication. Currently, he is on lisinopril HCTZ 12/12.5 mg daily. The patient is stable, discharged home today. MD JOSE ANGEL Pappas/MODL /[id number]
== END 2019-10-23 10:00 | disposition home or self-care (01) | DRG 394 ==
LOC: FSED 17:43 → ERHOLD 20:22 → MED/SURG2 22:17
PROVIDERS: ADMIT Internal Medicine; ATTEND Internal Medicine
DX: K40.30 Unilateral inguinal hernia, with obstruction, without gangrene, not specified as recurrent (principal); C79.51 Secondary malignant neoplasm of bone; E87.6 Hypokalemia; C61 Malignant neoplasm of prostate; T50.2X5A Adverse effect of carbonic-anhydrase inhibitors, benzothiadiazides and other diuretics, initial encounter
CPT/HCPCS: 36415; 71045; 74176; 80048; 80053; 80076; 81003; 82550; 82553; 83735; 83880; 84100; 84443; 84484; 85025; 87040; 87635; 93005; 97139; 99284; J0692; J0696; J3475; J3480; J7030; J7050

== ENCOUNTER 2019-12-27 12:57 | Inpatient (IN) | payer MEDICARE, OTHER ==
[~2019-12-27] VITALS: Ht 175.3 cm; Wt 70.3 kg
[2019-12-27] MEDS ORDERED: LORAZEPAM INJ 2 MG/ML VIAL IV STA (13:20)
--- NOTE | 2019-12-27 13:28 | Emergency Department Note ---
History of Present Illnes History of Present Illness History of Present Illness This is a 79 year old male . co abdominal pain for the last 12-16 hours has had in the past secondary to hernia Historian: Patient Arrival Mode: Car Additional Treatment MECHANICAL MAINTENANCE TECHNICIAN: none Tax Manager Required: No Onset (how long ago): hour(s) (16) Location: left lower abdomen Quality: pain Radiation: Reports non-radiation Severity: moderate Onset quality: sudden Timing of current episode: constant Progression: unchanged Chronicity: recurrent Relieving factors: none Exacerbating factors: none, other (ate today without difficulty no nausea or vomiting) Risk factors: hernia Past Medical/Family History Physician Review I have reviewed the patient's past medical and family history. Any updates have been documented here. Past Medical History Recent Fever: No Clinical Suspicion of Infectio: No New/Unexplained Change in Ment: No Past Medical History: Hypertension, Cancer, Chronic Kidney Disease Other Medical History: ENLARGED PROSTATE prostate cancer with bone mets as per son Past Surgical History: Knee Replacement Other Surgery: LEFT KNEE REPLACEMENT Social History Smoking Cessation: Former smoker (stopped greater than 50 years ago) Counseling Performed: No Alcohol Use: None Any Illegal Drug Use: No TB Exposure/Symptoms: No Physically hurt or threatened: No Other Last Tetanus: unknown Any Pre-Existing Lines (PICC,: No Review of Systems Review of Systems Constitutional: Reports no symptoms EENTM: Reports no symptoms Cardiovascular: Reports no symptoms Respiratory: Reports no symptoms Gastrointestinal: Reports abdominal pain (as per hpi) Genitourinary: Reports no symptoms Musculoskeletal: Reports no symptoms Integumentary: Reports no symptoms Neurological: Reports no symptoms Psychological: Reports no symptoms Endocrine: Reports no symptoms Review of other systems: All other systems negative Physical Exam Related Data Allergies: Coded Allergies: No Known Allergies (Unverified , 09/18/18) Physical Exam CONSTITUTIONAL Constitutional: Present well-developed, Present well-nourished HENT HENT: Present normocephalic, Present atraumatic, Present oropharynx clear/moist, Present oropharynx normal EYES Eyes: Reports PERRL, Reports conjunctivae normal, Reports EOM normal, Reports lids normal NECK Neck: Present ROM normal, Present supple PULMONARY Pulmonary: Present effort normal, Present breath sounds normal CARDIOVASCULAR Cardiovascular: Present regular rhythm, Present heart sounds normal, Present intact distal pulses, Present capillary refill normal, Present normal rate GASTROINTESTINAL Abdominal: Present soft, Present bowel sounds normal, Present tender (left inguinal area), Present mass (left inguinal area not reducible also massright paraumbilical region freely reducible), Present rebound (inguinal area mass tender not reducible . also right para umbilical mass freely reducible) GENITOURINARY Genitourinary: Present exam deferred SKIN Skin: Present warm, Present dry MUSCULOSKELETAL Musculoskeletal: Present ROM normal NEUROLOGICAL Neurological: Present alert, Present oriented x 3, Present DTRs normal, Present no gross motor or sensory deficits PSYCHOLOGICAL Psychological: Present mood/affect normal, Present behavior normal, Present thought content normal, Present judgement normal Results Laboratory Laboratory k 2.4 will repeat with a mg level glucose 121 bun 25 creat 1.2 rest wnl. UA WNL Lab results reviewed: Yes Laboratory comments repeat K 3.3 only midly decreased mg 2.3 Imaging Imaging results reviewed: Yes Impressions sigmoid colon in left inguinal hernia no evidence of obstruction Diagnostics Tests Diagnostic test(s) reviewed: Yes Diagnostic comments ekg NSR rate 71 axis wnl no sig st t wave changes and a mildly prolonged QTc Procedures Procedures Procedure: after giving 0.5 mg of ativan attempt to reduce the left inguinal hernia only partially successful. appears to be incarcerated Assessment & Plan Medical Decision Making MDM incarcerated inguinal hernia left side . Admit case discussed with both Dr Arsalan Reed (admitting ) and Dr James Montes (surgeon ) at 3 pm Reassessment Reassessment CBC has not gone over to the main hospital for analysis. Our analyzer is down. Results to be followed by admitting doctors Assessment & Plan Final Impression: (1) Incarcerated inguinal hernia, unilateral (2) Hypokalemia due to excessive renal loss of potassium Depart Disposition: ADMITTED Home Meds Reported Medications Lisinopril/Hydrochlorothiazide (LISINOPRIL-HCTZ 20-12.5 MG TAB) 1 Each Tablet, 1 TAB PO DAILY 09/20/18 Tamsulosin Hcl* (FLOMAX*) 0.4 Mg Cap, 0.4 MG PO DAILY, #30 CAP 09/18/18 Atorvastatin Calcium (ATORVASTATIN CALCIUM) 20 Mg Tablet, 10 MG PO HS, #30 TAB 09/18/18 ELEANOR KESSLER MD Dec 27, 2019 13:28
--- OUTSIDE RECORDS SUMMARY | 2019-12-27 13:56 | XMS REPORT | Continuity of Care Document ---
Author Author [facility] t Organization [facility] Address [address] [place] [address] Phone Unavailable Care Team Providers Care Call Center Operations Manager Name Role Phone Tabitha SMALL PCP Mahin POEWLL Attphys Unavailable CHUCK HENRY Attphys Unavailable Melvin HU Attphys Unavailable Payers Payer Name Policy Type Policy Number Effective Date Expiration Date S maude [employer] NA 2019 00:00:00 [facility] Problems Condition Name Condition Details Condition Category Status Onset Date Resolution Date Last Treatment Date Treating Clinician Comments Source Acute abdominal pain Problem Active [facility] Constipation Problem Active [facility] Unilateral incarcerated inguinal hernia Problem Active [facility] Hypokalemia Problem Active [facility] Dehydration Problem Active [facility] Renal failure Problem Active I [facility] Malignant neoplasm of bone with metastases Problem Active [facility] Incarcerated left inguinal hernia Problem Active [facility] Allergies, Adverse Reactions, Alerts Allergy Name Allergy Type Status Severity Reaction(s) Onset Date Inacti ve Date Treating Clinician Comments Source No Known Allergies DA Active U 2019-05-08 00:00:00 [facility] Social History Social Habit Start Date Stop Date Quantity Comments Source Sex Assigned At 1940 00:00:00 1940 00:00:00 Male [facility] Medications Ordered Medication Name Filled Medication Name Start Date Stop Da te Current Medication? Ordering Clinician Indication Dosage Frequency Signature (SIG) Comments Components Source Atorvastatin Calcium Atorvastatin Calcium Yes 10 Bedtime [facility] Lisinopril/Hydrochlorothiazide (Lisinopril-Hctz 20-12. 5 Mg Tab) 1 Each TABLET Lisinopril/Hydrochlorothiazide (Lisinopril-Hctz 20-12.5 Mg Tab) 1 Each TABLET Yes 1 Daily [facility] Tamsulosin Hcl (Flomax*) 0.4 Mg CAP Tamsulosin Hcl (Flomax*) 0.4 Mg C AP Yes .4 Daily [facility] Vital Signs Vital Name Observation Time Observation Value Comments Source Body Temperature 2019-10-23 08:00:00 97.8 [degF] [facility] Weight 2019-10-20 22:17:00 155.38 [lb_av] [facility] BMI (Body Mass Index) 2019-10-20 22:17:00 22.9 kg/m2 [facility] Procedures Procedure Date / Time Performed Performing Clinician [facility] Computed tomography of pelvis with contrast 2019-01-30 00:00:00 [facility] Plan of Care Planned Activity Planned Date Details Comments Source Instructions Fecal Impaction [facility] Encounters Start Date/Time End Date/Time En[facility] En[facility] ID Source 2019-10-20 20:22:00 2019-10-23 10:00:00 Discharged Inpatient 1 SHERRYMIKEAPRIL [facility] [id number] [facility] 2019-01-30 07:47:00 2019-01-30 07:47:00 Registered Clinic 3 CHUCK HENRY [facility] [id number] [facility] Results Test Description Test Time Test Comments Results Result Comments Source Blood leukocytes automated count (number/volume) 2019-10-23 04:45:00 Test Item White Blood Count (test code = 6690-2) 11.33 4.8-10.8 [facility] automated count (number/volume)2019-10-23 04:45:00* Test Item Value Reference Range Interpretation Comments Red Blood Count (test code = 789-8) 3.80 4.3-5.7 [facility] hemoglobin measurement (moles/volume)2019-10-23 04:45:00* Test Item Value Reference Range Interpretation Comments Hemoglobin (test code = 51014-7) 11.2 14.0-18.0 [facility] Center[facility] blood hematocrit (volume fraction)2019-10-23 04:45:00* Test Item Value Reference Range Interpretation Comments Hematocrit (test code = 4544-3) 34.3 38.2-49.6 [facility] Center[facility] erythrocyte mean corpuscular ipgwwv2256-00-31 04:45:00* Test Item Value Reference Range Interpretation Comments Mean Corpuscular Volume (test code = 787-2) 90.3 81-99 [facility] Center[facility] erythrocyte mean corpuscular hemoglobin (mass per erythrocyte)2019-10-23 04:45:00* Test Item Value Reference Range Interpretation Comments Mean Corpuscular Hemoglobin (test code = 785-6) 29.5 28-32 [facility] CenterAutom[facility] erythrocyte mean corpuscular hemoglobin concentration measurement (mass/volume)2019-10-23 04:45:00* Test Item Value Reference Range Interpretation Comments Mean Corpuscular Hemoglobin Concent (test code = 786-4) 32.7 31-35 [facility] CenterRDW WciUa-Yvj4828-77-28 04:45:00* Test Item Value Reference Range Interpretation Comments Red Cell Distribution Width (test code = 53695-4) 13.0 11.7 -14.4 [facility] CenterAutom[facility] blood platelet count (count/volume)2019-10-23 04:45:00* Test Item Value Reference Range Interpretation Comments Platelet Count (test code = 777-3) 404 140-360 [facility] CenterAutom[facility] blood segmented neutrophil count as percentage of total mkyrjvqehl6011-63-56 04:45:00* Test Item Value Reference Range Interpretation Comments Neutrophils (%) (Auto) (test code = 07976-1) 65.3 38.7-80.0 [facility] CenterAutomated blood lymphocyte count as percentage ot total wykobblsib1523-61-42 04:45:00* Test Item Value Reference Range Interpretation Comments Lymphocytes (%) (Auto) (test code = 736-9) 19.5 18.0-39.1 [facility] CenterAutom[facility] blood monocyte count as percentage of total pqynwvvnbd1210-03-28 04:45:00* Test Item Value Reference Range Interpretation Comments Monocytes (%) (Auto) (test code = 5905-5) 7.4 4.4-11.3 [facility] CenterAutomated blood eosinophil count as percentage of total iozuddrzwr5538-56-46 04:45:00* Test Item Value Reference Range Interpretation Comments Eosinophils (%) (Auto) (test code = 713-8) 6.5 0.0-6.0 [facility] CenterAutomated blood basophil count as percentage of total regutqrpce1153-78-84 04:45:00* Test Item Value Reference Range Interpretation Comments Basophils (%) (Auto) (test code = 706-2) 0.9 0.0-1.0 [facility] CenterFluoroscopic procedure less than one hour kpcpeiot0250-28-50 04:45:00* Test Item Value Reference Range Interpretation Comments IM GRANULOCYTES % (test code = IM GRANULOCYTES %) 0.4 0.0- 1.0 [facility] CenterAutomated blood neutrophil count 2019-10-23 04:45:00* Test Item Value Reference Range Interpretation Comments Neutrophils # (Auto) (test code = 751-8) 7.4 2.1-6.9 [facility] CenterBlood lymphocytes count (number/volume) 2019-10-23 04:45:00* Test Item Value Reference Range Interpretation Comments Lymphocytes # (Auto) (test code = 58065-1) 2.2 1.0-3.2 [facility] CenterBlood monocytes automated count (number/volume)2019-10-23 04:45:00* Test Item Value Reference Range Interpretation Comments Monocytes # (Auto) (test code = 742-7) 0.8 0.2-0.8 [facility] CenterAutomated blood eosinophil count 2019-10-23 04:45:00* Test Item Value Reference Range Interpretation Comments Eosinophils # (Auto) (test code = 711-2) 0.7 0.0-0.4 [facility] CenterAutomated blood basophil count (count/volume)2019-10-23 04:45:00* Test Item Value Reference Range Interpretation Comments Basophils # (Auto) (test code = 704-7) 0.1 0.0-0.1 [facility] CenterFluoroscopic procedure less than one hour rdebnduw7982-12-50 04:45:00* Test Item Value Reference Range Interpretation Comments Absolute Immature Granulocyte (auto (flex t code = Absolute Immature Granulocyte (auto) 0.05 0-0.1 [facility] sodium measurement (moles/volume)2019-10-23 04:45:00* Test Item Value Reference Range Interpretation Comments Sodium Level (test code = 2951-2) 143 136-145 [facility] or plasma potassium measurement (moles/volume)2019-10-23 04:45:00* Test Item Value Reference Range Interpretation Comments Potassium Level (test code = 2823-3) 3.3 3.5-5.1 [facility] or plasma chloride measurement (moles/volume)2019-10-23 04:45:00* Test Item Value Reference Range Interpretation Comments Chloride Level (test code = 2075-0) 115 98-107 [facility]erum or plasma carbon dioxide, total measurement (moles/volume)2019-10-23 04:45:00* Test Item Value Reference Range Interpretation Comments Carbon Dioxide Level (test code = 2028-9) 19 22-29 [facility]erum or plasma anion bks9620-43-35 04:45:00* Test Item Value Reference Range Interpretation Comments Anion Gap (test code = 38646-4) 12.3 8-16 [facility]er[facility] or plasma urea nitrogen measurement (mass/volume)2019-10-23 04:45:00* Test Item Value Reference Range Interpretation Comments Blood Urea Nitrogen (test code = 3094-0) 19 12-20 [facility]erum or plasma creatinine measurement (mass/volume)2019-10-23 04:45:00* Test Item Value Reference Range Interpretation Comments Creatinine (test code = 2160-0) 1.46 0.72-1.25 [facility]erum or plasma urea nitrogen/creatinine mass uhkvg5761-24-75 04:45:00* Test Item Value Reference Range Interpretation Comments BUN/Creatinine Ratio (test code = 3097-3) 13 - [facility] CenterEstimated glomerular filtration rate (GFR) bjcuudkjhyysw7010-44-17 04:45:00* Test Item Value Reference Range Interpretation Comments Estimat Glomerular Filtration Rate (test code = 805669501) 47 >60 Ranges were taken from the National Kidney Disease Education Program and the [facility] literature.Reference ranges:60 or greater: Zrcjkd08-12 ( for 3 consecutive months): Chronic kidney disease 15 or less: Kidney failureMemorial Hermann The Woodlands Medical CenterGlucose myfqouiqbwr6668-11-21 04:45:00* Test Item Value Reference Range Interpretation Comments Glucose Level (test code = NMS6089) 86 74-118 [facility] Hospitalerum or plasma calcium measurement (mass/volume)2019-10-23 04:45:00* Test Item Value Reference Range Interpretation Comments Calcium Level (test code = 84340-0) 8.0 8.4-10.2 [facility] Hospitalerum or plasma creatine kinase measurement (enzymatic activity/volume)2019-10-21 19:35:00* Test Item Value Reference Range Interpretation Comments Creatine Kinase (test code = 2157-6) 325 30-200 [facility] Hospitalerum or plasma creatine kinase MB measurement (mass/volume)2019-10-21 19:35:00* Test Item Value Reference Range Interpretation Comments Creatine Kinase MB (test code = 09769-0) 7.50 0-5.0 [facility] CenterTroponin I measurement by highly sensitive enzyme dydivaqoniv8992-69-77 19:35:00* Test Item Value Reference Range Interpretation Comments Troponin I (test code = 15495-8) 0.037 0-0.300 [facility] CenterPhosphorus uqlimjztsbg2366-75-15 04:35:00 * Test Item Value Reference Range Interpretation Comments Phosphorus Level (test code = CBS5360) 3.1 2.3-4.7 [facility] Hospitalerum or plasma magnesium measurement (mass/volume)2019-10-21 04:35:00* Test Item Value Reference Range Interpretation Comments Magnesium Level (test code = 69501-8) 2.6 1.3-2.1 [facility] Hospitalerum or plasma total bilirubin measurement (mass/volume)2019-10-21 04:35:00* Test Item Value Reference Range Interpretation Comments Total Bilirubin (test code = 1975-2) 0.5 0.2-1.2 [facility] CenterFluoroscopic procedure less than one hour euuhgcrb8521-95-89 04:35:00* Test Item Value Reference Range Interpretation Comments Aspartate Amino Transf (AST/SGOT) (test code = Aspartate Amino Transf (AST/SGOT)) 30 5-34 [facility] Hospitalerum or plasma alanine aminotransferase measurement (enzymatic activity/volume)2019-10-21 04:35:00* Test Item Value Reference Range Interpretation Comments Alanine Aminotransferase (ALT/SGPT) (test code = 1742-6) 31 0-55 [facility] Hospitalerum or plasma protein measurement (mass/volume)2019-10-21 04:35:00* Test Item Value Reference Range Interpretation Comments Total Protein (test code = 2885-2) 7.0 6.5-8.1 [facility] Hospitalerum or plasma albumin measurement (mass/volume)2019-10-21 04:35:00* Test Item Value Reference Range Interpretation Comments Albumin (test code = 1751-7) 2.8 3.5-5.0 [facility] CenterPlasma globulin measurement (mass/volume) 2019-10-21 04:35:00* Test Item Value Reference Range Interpretation Comments Globulin (test code = 64414-8) 4.2 2.3-3.5 [facility] Hospitalerum or plasma albumin/globulin mass nmnfo6625-13-07 04:35:00* Test Item Value Reference Range Interpretation Comments Albumin/Globulin Ratio (test code = 1759-0) 0.7 0.8-2.0 [facility] Hospitalerum or plasma alkaline phosphatase measurement (enzymatic activity/volume)2019-10-21 04:35:00* Test Item Value Reference Range Interpretation Comments Alkaline Phosphatase (test code = 6768-6) 87 40-150 [facility] Hospitalerum or plasma thyrotropin measurement by detection limit <= 0.005 miu/l (units/volume)2019-10-21 04:35:00* Test Item Value Reference Range Interpretation Comments Thyroid Stimulating Hormone (TSH) (test code = 82322-7) 0.795 0.350-4.940 [facility] CenterCT ABD/PEL WO [id number]-[id number] 19:13:00 [place] [address] Patient Name: RAPHAEL HERNADEZ MR #: [id number] : 1940 Age/Sex: 78/M Req #: [id number] Adm Physician: Ordered by: APRIL POWELL Report #: [id number] Location: [facility] Room/Bed: Procedure: [id number] HOPD/CT ABD/PEL WO CONTRAST-HOPD Exam Date: 10/20/19 Exam Time: 1850 REPORT STATUS: Signed EXAM: CT Abd omen and Pelvis WITHOUT contrast INDICATION: Abdominal pain, weakness, history of chemotherapy for bone cancer COMPARISON: Pelvis CT 01/30/2019 TECHNIQUE: Abdomen and pelvis were scanned utilizing a multidetector helical scanner from the lung base to the pubic symphysis without administration of IV contrast. Absence of intravenous contrast decreases sensitivity for detection of focal lesions and vascular pathology. Coronal and sagittal reformations wer e obtained. Routine protocol was performed. IV CONTRAST: None O RAL CONTRAST: None COMPLICATIONS: None RADIATION DOSE: Total DLP: 516 mGy*cm Estimated effective dose: (DLP x 0.015 x size f actor) mSv CTDIvol has been reviewed. It is below the limits set by the R adiation Protocol Committee (RPC). Dose modulation, iterative reconstru ction, and/or weight based adjustment of the mA/kV was utilized to reduce the radiation dose to as low as reasonably achievable. FINDINGS: LINES and TUBES: None. LOWER THORAX: Dense mitral annular calcifications. Wilson ry artery hyperdensities could be due to coronary stents are calcific atherosc lerosis. Left lower lobe posterobasilar calcified granuloma. HEPATOBI LIARY: No focal hepatic lesions. No biliary ductal dilation. GALLBLAD CASI: No radio-opaque stones or sludge. No wall thickening. SPLEEN: No sple nomegaly. PANCREAS: No focal masses or ductal dilatation. ADRENALS: No adrenal nodules KIDNEYS/URETERS: No hydronephrosis. No solid mass lesions. No stones. There are 2 exophytic cysts in the right kidney without s uspicious features, largest measures 3.1 cm.. GI TRACT: Small sliding gas tric hiatal hernia. Moderate volume of dense stool burden within the rectum an d distal colon. Subtle pancolonic wall thickening. No evidence of appendiciti s. PELVIC ORGANS/BLADDER: Normal size of the prostate with a few prostatic calcifications. Moderate degree of urinary bladder dome wall thickening with trace perivesicular fat stranding, new compared to 01/30/2019,. LYMPH NODES : No lymphadenopathy. VESSELS: There is moderate atherosclerotic disease in the aorta and major arterial branches. PERITONEUM / RETROPERITONEUM: No free air or fluid. BONES: Increased size and number of numerous sclerotic f oci throughout the included skeleton, compared to 01/30/2019, without expansile or destructive features. Advanced degenerative changes in the spine. SOF T TISSUES: Fat and bowel containing left inguinal hernia, contains a short seg ment of sigmoid colon, increased in size compared to 01/30/2019. Tiny fat and jian wel containing right inguinal hernia. No evidence of strangulation or obstruct ion. IMPRESSION: 1. Moderate volume of dense colonic sto ol burden, worst in the rectum, suggestive of constipation, correlate for feca l impaction. There is also mild colonic wall thickening, possibly due to colit is. 2. Moderate degree of urinary bladder dome wall thickening with trace perivesicular fat stranding, new compared to 01/30/2019, could be due to cyst itis, correlate with urinalysis. The wall thickening is primarily of the bladd er dome, underlying malignancy is possible. A short-term follow-up contrast en hanced pelvic CT can further evaluate this wall thickening. 3. 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 4. Dense mitral annular calcific valvular disease an d calcific coronary artery atherosclerotic disease. 5. Small sliding gas tric hiatal hernia. 6. Increased size of a left inguinal hernia which cont ains a short segment of sigmoid colon. No evidence of strangulation or obstruc tion. Signed by: Buck Mahmood DO on 10/20/2019 7:32 PM Dictated By : BUCK MAHMOOD DO 31 Transcribed By: JOSEPH on 10/20/191931 COPY TO: APRIL POWELL CXR 1 VEW - [id number] 19:04:00 [place] [address] Patient Name: RAPHAEL HERNADEZ MR #: [id number] : 1940 Age/Sex: 78/M Req #: [id number] Adm Physician: Ordered by: APRIL POWELL Report #: [id number] Location: [facility] Room/Bed: Procedure: [id number] HOPD/CXR 1 VEW - HO PD Exam Date: 10/20/19 Exam Time: 1845 REPORT STATUS: Signed Examination: Single AP view of the chest. COMPARISON: Chest 2 views 09/18/2018 INDICATION: Abd ominal pain and weakness IMPRESSION: 1. Lines and Tubes: None 2. Lungs are grossly clear. No consolidation or effusion. 3. Cardiomediasti nal silhouette is normal. Pulmonary vasculature is normal. 4. No acute bony abnormalities. Signed by: Dr. Vick Bates M.D. on 10/20/2019 7:04 PM Dictated By: VICK BATES MD 03 Transcribed By: JOSEPH on 10/20/191903 COPY TO: APRIL POWELL Blood vdlloox4418-28-99 18:05:00* Test Item Value Reference Range Interpretation Comments Blood Culture (test code = 98701908) NO GROWTH AFTER 48 HOURS [facility],PXKJMS2930-72-84 16:50:00 RUN DATE: 05/13/19 [facility] Lab PAGE 1 RUN TIME: 1650 Specimen Inqui ry RUN USER: INTERFACE PATIENT: RAPHAEL HERNADEZ MABEL ACCT #: V [id number] LOC: [place] U #: [id number] AGE/SX: 78/M ROOM: RE05/09/19REG DR: Fabien Hess MD : 42 BED: DIS: STATUS: [facility] TLOC: SPEC #: [id number] RECD: 05/09/19 STATUS: ADDY RE #: [id number] JAVIER: 05/09/[address] [facility] [address]: Fabien Hess MD ENTERED: 05/09/19 SP TYPE: BX BONE OTHR DR: Brittany Light MD TUMOR REGISTRYORDERED: GROSS COPIES TO: Brittany Reed MD [address] [facility] [address] [place] [address] TUMOR REGISTRY Jayden Hess MD [address] [place] [address] MARKERS: INTRAD EPARTMENTAL CONSULT, MALIGNANCY PROCEDURES: GROSS (05/13/19-152) TISSUES: 1. BONE - RINSE, 6 SLIDES 2. BONE MARROW, NOS - BX CLINICAL HISTORY COLLECTION DATE: 05/09/19 HISTORY PROSTATE CANCER COMMENT [facility] and [facility] at [facility]. The controls stain appropriat elizabeth. The tumor is positive for PSA and PSAP. The findings are consistent with metastatic prostate carcinoma. Intradepartmental consultation: RRB. CONTINUED ON NEXT PAGE RUN SUSANNE E: 05/13/19 [facility] - Lab PAGE 2 RUN TIME: 1650 Specimen Inquiry RUN USER: INTERFACE SPEC #: [id number] PATIENT: RAPHAEL HERNADEZ MABEL # [id number] (Continued) FINAL DIAGNOSIS Right iliac jian ne, fine needle aspirate biopsy: RARE COLLECTIONS OF ATYPICAL GLANDULAR E PITHELIAL CELLS WITH PROMINENT NUCLEOLI CONSISTENT WITH METASTATIC PROS TATIC CARCINOMA FEW BONE MARROW ELEMENTS SEEN POSITIVE FOR MALIGNA NCY Right iliac bone, core biopsy: METASTATIC TUMOR CONSISTENT WITH METASTATIC PROSTATE CARCINOMA, BONE DMW/estela D 43364, 61166, 8 4010, 64286 MACROSCOPIC The specimens consist of six aspirate smear slides to be stained for cytologic evaluation, aspirate fluid to be concentra lea and processed for cytologic evaluation, and a bone biopsy which is receive d in formalin, labeled with the patient's name, and identified as "bone biopsy ". A cell block is prepared on the aspirate fluid. The bone core biopsy andreia ures 0.7 cm in length by 0.15 cm in diameter. It is submitted for light decal cification and follow up microscopic evaluation. MIAH PERFORMED A T [facility] [address] [place] [address] (P)[phone] MICROSCOPIC All o f the stains, including any controls performed, stain appropriately. TAMIKO ROSCOPIC PERFORMED AT [facility] [address] [place], [place] [address] (p)[phone] PERFORMING SIT E Diagnosis performed at: [facility] [address] [facility] CONTINUED ON NEXT PAGE RUN DATE: 05/13/19 [facility] - Lab PAGE 3 RUN TIME: 1650 Specimen Inquiry RUN USER: INTERFACE SPEC #: Dane Mercado:[id number] PATIENT: RAPHAEL HERNADEZ EDD #[id number] (Continu ed) PERFORMING SITE (Continued) [place] [id number] Signed SIGNATURE ON FILE Shakira Ramires MD 05/13/19 8403 END OF REPORT - CT GUID ND [id number] 21:34:00 Name: RAPHAEL HERNADEZ EDD [facility] : 1940 Age/S: 78 / M [address] [facility] Unit #: [id number] Loc: [place] [address] Phys: Fabien Hess MD Acct: [id number] Dis Date: Status: [facility] PHONE #: [phone] Exam Date: 05/09/2019 1200 FAX #: [phone] Reason: EXAMS: CPT CODE: [id number] CT GUID [facility] [address] EXAM: CT-guided pelvic bone biopsy; INFORMATION: Patient [...] are suspicious for metastatic disease. TECHNIQUE AND FINDINGS: Informed consent was obtained and the patient [...] within the right iliac wing. Location code: [facility] at 2133 Reported and signed by: Fabien Hess M.D. CC: Brittany Tuttle MD; Fabien Hess MD Technologist:Jamal Vuong RT(R),(MR),(CT) CTDI: DLP: Trnscb Date/Time: 05/12/2019 (2133) Betty.GRW Orig Print D/T: S: 05/12/2019 (2136) PAGE 1 Signed Report - [id number] 21:34:00 Name: RAPHAEL HERNADEZ EDD [facility] : 1940 Age/S: 78 / M [address] [facility] Unit #: [id number] [place] [address] Phys: Fabien Hess MD Acct: [id number] Dis Date: Status: [facility] PHONE #: [phone] Exam Date: 05/09/2019 1200 FAX #: [phone] Reason: BONE MARROW BX EXAMS: CPT CODE: [id number] [facility] HEALTH [id number] EXAM: CT-guided pelvic bone biopsy; INFORMATION: Patient [...] are suspicious for metastatic disease. TECHNIQUE AND FINDINGS: Informed consent was obtained and the patient [...] within the right iliac wing. Location code: [facility] at 2134 Reported and signed by: Fabien Hess M.D. CC: Brittany Tuttle MD; Fabien Hess MD Technologist:Jamal Vuong RT(R),(MR),(CT) CTDI: DLP: Trnscb Date/Time: 05/12/2019 (2133) [email or web address].[email or web address] Orig Print D/T: S: 05/12/2019 (2136) PAGE 1 Signed Report BASIC METABOLIC [id number] 10:18:00* Test Item Value Reference Range Interpretation Comments [...] CA) 9.4 mg/dL 8.5-10.1 N BASIC METABOLIC [id number] 10:17:00* Test Item Value Reference Range Interpretation [...] code = CA) mg/dL 8.5-10.1 CBC W/AUTO [id number] 09:53:00* Test Item Value Reference Range Interpretation [...] (test code = MDIFF) NO CBC W/AUTO [id number] 09:50:00* Test Item Value Reference Range Interpretation [...] code = BA#) K/mm3 0.0-0.2 BASIC METABOLIC [id number] 16:32:00* Test Item Value Reference Range Interpretation [...] CA) 9.5 mg/dL 8.5-10.1 N BASIC METABOLIC [id number] 16:26:00* Test Item Value Reference Range Interpretation [...] (test code = CA) mg/dL 8.5-10.1 PROTHROMBIN [id number] 11:01:00* Test Item Value Reference Range Interpretation [...] Mechanical prosthetic heart valves (2.5-3.5) THROMBOPLASTIN TIME [id number] 11:01:00* Test Item Value Reference Range Interpretation Comments THROMBOPLASTIN TIME PARTIAL (test code = PTT) 28.9 seconds 25.0-36. 5 N - CT PELVIS W/O [id number] 15:39:00 Name: RAPHAEL HERNADEZ EDD [facility] : 1940 Age/S: 78 / M [address] [facility] Unit #: [id number] Loc: [place] [address] Phys: Fabien Hess MD Acct: [id number] Dis Date: Status: [facility] PHONE #: [phone] Exam Date: 05/02/2019 7168 FAX #: [phone] Reason: PROSTATE CA Report Has Been Amended EXAMS: CPT CODE: [id number] CT PELVIS W/O CONTRAST 26908 Addendum - 05/05/2019 SIGNED 05/05/2019 ADDENDUM: [id number] CT/CTPELVISWO Upon review with the ordering clinician, [...] signed by: Dario Guillen MD Transcribed: 05/05/2019 (4877) [email or web address] OF THE PELVIS WITH SAGITTAL AND CORONAL RECONSTRUCTIONS DIAGNOSIS: Prostate cancers COMPARISON: No prior studies are available at this institution Noncontrast CT were performed with thin sections and reconstructions were obtained. CT radiation dose optimization is achieved for this examination by the use of a CT protocol in accordance with ACR practice standards and adherence to foreign banknote teller trader's recommendations. FINDINGS: Calcified granulomas present in the [...] Signed Report (CONTINUED) Name: RAPHAEL HERNADEZ EDD [facility] : 1940 Age/S: 78 / M [address] [facility] Unit #: [id number] Loc: [place] [address] Phys: Fabien Hess MD Acct: [id number] Dis Date: Status: DEP CLI PHONE #: [phone] Exam Date: 05/02/2019 6433 FAX #: [phone] Reason: PROSTATE CA Report Has Been Amended EXAMS: CPT CODE: [id number] CT PELVIS W/ O CONTRAST 74242 <Continued> Atherosclerotic disease is seen throughout the abdominal aorta and extends into the iliac arteries. Moderate colonic stool burden is seen. IMPRESSION: No visualized prosthetic lesion is present. However contrast enhanced MRI is significantly more sensitive for detecting prostate abnormalities. at 1509 Reported and signed by: Dario Guillen MD CC: Aminata Mendez MD; Chuck Henry MD Technologist:Chan Vuong RT(R),(MR),(CT) C TDI: DLP: Trnscb Date/Time: 05/02/2019 (1509) [email or web address] Orig Print D/T: S: 05/02/2019 (4304) PAGE 2 Signed Report - CT PELVIS W/O CONTRAST 2019-05-02 15:09:00 Name: RAPHAEL HERNADEZ EDD [facility] : 1940 Age/S: 78 / M [address] [facility] Unit #: [id number] Loc: [place] [address] Phys: Fabien Hess MD Acct: [id number] Dis Date: Status: REG CLI PHONE #: [phone] Exam Date: 05/02/2019 1355 FAX #: [phone] Reason: PROSTATE CA EXAMS: CPT CODE: [id number] CT PELVIS W/O CONTRAST 96635 CT OF THE PELVIS WITH SAGITTAL AND CORONAL RECONSTRUCTIONS DIAGNOSIS: Prostate cancers COMPARISON: No prior studies are available at this institution Noncontrast CT were performed with thin sections and reconstructions were obtained. CT radiation dose optimization is achieved for this examination by the use of a CT protocol in accordance with ACR practice standards and adherence to foreign banknote teller trader's recommendations. FINDINGS: Calcified granulomas present in the [...] significantly more sensitive for detecting prostate abnormalities. Electronically Signed by Dario Guillen MD on 10/2018 at 1509 Reported and signed by: Dario Guillen MD CC: Aminata Mendez MD; Chuck Henry MD Technologist:Chan Leyva RT(R),(MR),(CT) CTDI: DLP: Trnscb Date/Time: 05/02/2019 (3365) [email or web address] Orig Print D/T: S: 05/02/2019 (2017) PAGE 1 Signed Report BONE and/or JOINT WHOLE [id number] 18:46:00 [place] [address] Patient Name: RAPHAEL HERNADEZ MR #: [id number] : 1940 Age/Sex: 78/M Req #: [id number] Adm Physician: Ordered by: CHUCK HENRY MD Report #: [id number] Location: [place] Room/Bed: Procedure: [id number] NM/BONE and/or JOINT WHOLE BODY Exam Date: [...] COPY TO: CHUCK HENRY MD CT PELVIS [id number] 09:54:00 [place] [address] Patient Name: RAPHAEL HERNADEZ MR #: [id number] : 1940 Age/Sex: 78/M Req #: [id number] Adm Physician: Ordered by: CHUCK HENRY MD Report #: [id number] Location: [place] Room/Bed: Procedure: [id number] CT/CT P JAN W Exam Date: 01/30/19 Exam Time: 909 REPORT STATUS: Signed EXAM: CT Pelvis intravenous contrast INDICATION: Prostate enlargement, back pain COMPARISON: None. TECHNIQUE: Abdomen and pelvis were scanned utilizing a Asteresidetector helical scanner from the lung base to the pubic symphysis after ad ministration of IV contrast. Coronal and sagittal reformations were obtained. Routine protocol was performed. Scan was performed during portal venous phase. IV CONTRAST: 100mL of Isovue 370 ORAL CONTRAST: None RADIATION DOSE: Total DLP: 303.2 mGy*cm Dose modulation, iterative reconstruction , and/or weight based adjustment of the mA/kV [...] AM Dictated By: NAVDEEP FLORES MD 1001 COPY TO: CHUCK MONGE MD CHEST 2 [id number] 12:04:00 [place] [address] Patient Name: RAPHAEL HERNADEZ MR #: [id number] : 1940 Age/Sex: 77/M Req #: [id number] Adm Physician: Ordered by: CHUCK HENRY MD Report #: [id number] Location: [place] Room/Bed: Procedure: [id number] DX/CHES T 2 VIEWS Exam Date: 09/18/18 [...] 12:06 PM Dictated By: PRICILA CAMPBELL MD 1206 COPY TO: Sherice HENRY MD BONE and/or JOINT WHOLE [id number] 15:30:00 [place] [address] Patient Name: RAPHAEL HERNADEZ MR #: [id number] : 1940 Age/Sex: 77/M Req #: [id number] Adm Physician: Ordered by: CHUCK HENRY MD Report #: [id number] Location: [facility] R oom/Bed: Procedure: [id number] NM/BONE and/or JOINT WHOLE BODY Exam Date: [...] TO: VICENTE HENRY RD, MD MRI PELVIS [id number] 12:10:00 [place] [address] Patient Name: RAPHAEL HERNADEZ MR #: [id number] : 1940 Age/Sex: 77/M Req #: [id number] [facility] Physician: Ordered by: CHUCK HENRY MD Report #: [id number] Location: [place] Room/Bed: Procedure: [id number] MRI/MRI PELVIS WOW Exam Date: Exam Time: REPORT STATUS: Signed EXAM: MRI pelvis with and without contrast. TECHNIQUE: MR of the pelvis WITH and WITHOUT intravenous gadolinium as per departmental protocol. 15 cc of MultiHance were administere d intravenously. CLINICAL HISTORY: Pelvic pain. Elevated PSA. [...] fluid or loculated fluid collections. 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 There is a isthm ic grade 2 anterolisthesis of L5 in relation to S1. There is also facet arthro barby at this levels. Ill-defined patchy T1 hypointense T2 hyperintense signal in the posterior aspect of S3 and S4 is nonspecific, however, metastatic focu s cannot be entirely excluded. SOFT TISSUES: Bilateral [...] PM Dictated By: OSIEL JAMES MD, MD 1232 Transcribe d By: JOSEPH on 04/19/18 1234 COPY TO: CHUCK HENRY MD KNEE 1- 2 VIEWS BILATERAL [place] [address] Patient Name: RAPHAEL HERNADEZ MR #: [id number] : 1940 Age/Sex: 76/M Req #: [id number] [facility] Physician: Ordered by: RAFA HU MD Report #: [id number] Location: [facility] Room/Bed: Procedure: [id number] DX/KNEE 1-2 VIEWS BILATERAL Exam Da te: [...] gned By: WILD KHOURY MD on 09/06/17 2490 Transcribed By: MARYLIN on 09/06/17 3763 COPY TO: RAFA HU MD
--- NOTE | 2019-12-27 14:11 | NUR ---
Dr. Thomas not satisfied/needs conformation with labs, verbal order for metlac 12 to be run.
[2019-12-27] MEDS ORDERED: LORAZEPAM INJ 2 MG/ML VIAL ONE (14:18)
--- NOTE | 2019-12-27 14:27 | NUR ---
BLOOD REDRAWN FROM RIGHT AC FOR REPEAT K+
--- NOTE | 2019-12-27 14:45 | NUR ---
PROCEDURE COMPLETED, PT REMAINED ALERT AND ORIENT TALKING WITH DR KESSLER THROUGHOUT PROCEDURE.
--- NOTE | 2019-12-27 14:51 | NUR ---
PT MEDICATED WITH 0.5 MG OF ATIVAN FOR PROCEDURE TO REDUCE HERNAI TO LEFT GROIN, PT PLACED ON MONITOR O2 AT [facility], TIME COMPLETED, HR 71 BP 180/100 SPO2 100 5 PROCEDURE STARTED AT 1400 COMPLETED AT 1425 PT TAMIAORATED WELL Addendum: 12/27/19 at 1652 by ASHLEIGH CORRECT START TIME WAS 1420 COMPLETED AT 1445,
--- NOTE | 2019-12-27 15:01 | Diagnostic Imaging Report ---
EXAM: CT Abdomen and Pelvis WITHOUT contrast INDICATION: Evaluation for incarcerated inguinal hernia. COMPARISON: None. TECHNIQUE: Abdomen and pelvis were scanned utilizing a multidetector helical scanner from the lung base to the pubic symphysis without administration of IV contrast. Absence of intravenous contrast decreases sensitivity for detection of focal lesions and vascular pathology. Coronal and sagittal reformations were obtained. Routine protocol was performed. IV CONTRAST: None ORAL CONTRAST: None COMPLICATIONS: None RADIATION DOSE: Total DLP: 555.34 mGy*cm Estimated effective dose: (DLP x 0.015 x size factor) mSv CTDIvol has been reviewed. It is below the limits set by the Radiation Protocol Committee (RPC). Dose modulation, iterative reconstruction, and/or weight based adjustment of the mA/kV was utilized to reduce the radiation dose to as low as reasonably achievable. FINDINGS: LINES and TUBES: None. LOWER THORAX: Redemonstration of dense mitral annular calcification. There is also atherosclerotic calcification of the coronary arteries. Redemonstration of left lower lobe pleural-based calcified granuloma. There is subtle groundglass nodule which measures approximately 9 x 9 mm in the right lower lobe (series 2 image 6; series 301 image 64), unchanged from prior examination. HEPATOBILIARY: No focal hepatic lesions. No biliary ductal dilation. GALLBLADDER: No radio-opaque stones or sludge. No wall thickening. SPLEEN: No splenomegaly. PANCREAS: No focal masses or ductal dilatation. ADRENALS: No adrenal nodules KIDNEYS/URETERS: There is mild bilateral hydroureteronephrosis. There are stable exophytic cysts in the right kidney. GI TRACT: There is a small sliding gastric hiatal hernia. There is a short segment loop of sigmoid colon contained within the left inguinal hernia. No evidence of mucosal thickening or pericolonic fat stranding to suggest the presence of incarcerated bowel. There is large well-formed blood the large bowel. No abnormal distention, wall thickening, or evidence of bowel obstruction. Appendix is normal. PELVIC ORGANS/BLADDER: The urinary bladder is severely distended with normal wall contour. The previously described bladder wall thickening is not well appreciated on current study. The prostate gland is normal for image technique with coarse calcifications. LYMPH NODES: No lymphadenopathy. VESSELS: There is atherosclerotic calcification of the abdominal aorta and its major abdomen and pelvic branches. No evidence of aneurysmal dilatation. PERITONEUM / RETROPERITONEUM: No free air or fluid. BONES: Redemonstration of numerous sclerotic foci throughout the bones. Multilevel degenerative disease of the spine. SOFT TISSUES: Unremarkable. IMPRESSION: 1. Short segment loop of sigmoid colon contained within a left inguinal hernia. No evidence of bowel incarcerated or bowel obstruction. 2. Large well-formed stool burden throughout the colon can present clinically as constipation. 3. Distended urinary bladder with mild bilateral hydronephrosis. Patient may benefit from Almaguer catheter placement for relief. 4. Subtle groundglass nodule which measures approximately 9 x 9 mm in the right lower lobe (series 2 image 6; series 301 image 64), unchanged from prior examination. Recommend nonemergent dedicated chest CT for complete assessment of the lungs. 5. 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 6. Small sliding gastric hiatal hernia. Signed by: Armando Velázquez MD on 12/27/2019 2:57 PM
--- OUTSIDE RECORDS SUMMARY | 2019-12-27 15:12 | XMS REPORT | Continuity of Care Document ---
Author Author [facility] t Organization [facility] Address [address] [place] [address] Phone Unavailable Care Team Providers Care Admissions Specialist Name Role Phone Tabitha SMALL PCP ELEANOR KESSLER Attphys Unavailable Mahin POWELL Attphys Unavailable CHUCK HENRY Attphys Unavailable Melvin HU Attphys Unavailable Payers Payer Name Policy Type Policy Number Effective Date Expiration Date S maude [employer] NA 2019 00:00:00 [facility] Problems Condition Name Condition Details Condition Category Status Onset Date Resolution Date Last Treatment Date Treating Clinician Comments Source Acute abdominal pain Problem Active [facility] Constipation Problem Active [facility] Unilateral incarcerated inguinal hernia Problem Active [facility] Hypokalemia Problem Active [facility] Dehydration Problem Active [facility] Renal failure Problem Active [facility] Malignant neoplasm of bone with metastases Problem Active [facility] Incarcerated left inguinal hernia Problem Active [facility] Allergies, Adverse Reactions, Alerts Allergy Name Allergy Type Status Severity Reaction(s) Onset Date Inacti ve Date Treating Clinician Comments Source No Known Allergies DA Active U 2019-05-08 00:00:00 [facility] Social History Social Habit Start Date Stop Date Quantity Comments Source Sex Assigned At 1940 00:00:00 1940 00:00:00 Male [facility] Medications Ordered Medication Name Filled Medication Name Start Date Stop Da te Current Medication? Ordering Clinician Indication Dosage Frequency Signature (SIG) Comments Components Source Atorvastatin Calcium Atorvastatin Calcium Yes 10 Bedtime [facility] Lisinopril/Hydrochlorothiazide (Lisinopril-Hctz 20-12. 5 Mg Tab) 1 Each TABLET Lisinopril/Hydrochlorothiazide (Lisinopril-Hctz 20-12.5 Mg Tab) 1 Each TABLET Yes 1 Daily [facility] Tamsulosin Hcl (Flomax*) 0.4 Mg CAP Tamsulosin Hcl (Flomax*) 0.4 Mg C AP Yes .4 Daily [facility] Vital Signs Vital Name Observation Time Observation Value Comments Source Body Temperature 2019-10-23 08:00:00 97.8 [degF] [facility] Weight 2019-10-20 22:17:00 155.38 [lb_av] [facility] BMI (Body Mass Index) 2019-10-20 22:17:00 22.9 kg/m2 [facility] Procedures Procedure Date / Time Performed Performing Clinician Kanwal real Computed tomography of pelvis with contrast 2019-01-30 00:00:00 [facility] Plan of Care Planned Activity Planned Date Details Comments Source Instructions Fecal Impaction [facility] Encounters Start Date/Time End Date/Time Encounter Type Admission Type [facility] Facility Care Department Encounter ID Source 2019-10-20 20:22:00 2019-10-23 10:00:00 Discharged Inpatient 1 SHERRY APRIL [facility] [id number] [facility] 2019-01-30 07:47:00 2019-01-30 07:47:00 Registered Clinic 3 CHUCK HENRY [facility] [id number] [facility] Results Test Description Test Time Test Comments Results Result Comments Source CT ABD/PEL WO CONTRAST-HOPD 2019-12-27 14:23:00 [facility] [address] [address] Patient Name: RAPHAEL HERNADEZ MR #: [id number] : 1940 Age/Sex: 79/M Req #: [id number] Adm Physician: Ordered by: ELEANOR KESSLER MD Report #: [id number] Location: [facility] Room/Bed: Procedure: [id number] HOPD/CT ABD/PEL WO CONTRAST-HOPD Exam Date: 12/27/19 Exam Time: 1408 REPORT STATUS: Signed EXAM: CT Abdomen and Pelvis WITHOUT contrast INDICATION: Evaluation for incarcerated inguinal hernia. COMPARISON: None. TECHNIQUE: Abdomen and pelvis were scanned utilizing a multidetector helical scanner from the lung base to the pubic symphysis witho ut administration of IV contrast. Absence of intravenous contrast decreases sensitivity for detection of focal lesions and vascular pathology. Coronal and sagittal reformations were obtained. Routine protocol was performed. IV CONTRAST: None ORAL CONTRAST: None COMPLICATIONS: None RADIATION DOSE: Total DLP: 555.34 mGy*cm Estimated effective dose: (DLP x 0.015 x size factor) mSv CTDIvol has been reviewed. It is below the limits set by the Radiation Protocol Committee (RPC). Dose modulation, iterative reconstruction, and/or weight based adjustment of the mA/kV was utilized to reduce the radiation dose to as low as reasonably achievable. FINDINGS: LINES and TUBES: None. LOWER THORAX: Redemonstration of dense mitral annular calcification. There is also atherosclerotic calcification of the coronary arteries. Redemonstration of left lower lobe pleural-based calcified granuloma. There is subtle groundglass nodule which measures approximately 9 x 9 mm in the right lower lobe (series 2 image 6; series 301 image 64), unchanged from prior examination. HEPATOBILIARY: No focal hepatic lesions. No biliary ductal dilation. GALLBLADDER: No radio-opaque stones or sludge. No wall thickening. SPLEEN: No splenomegaly. PANCREAS: No focal masses or ductal dilatation. ADRENALS: No adrenal nodules KIDNEYS/URETERS: There is mild bilateral hydroureteronephrosis. There are stable exophytic cysts in the right kidney. GI TRACT: There is a small sliding gastric hiatal hernia. There is a short segment loop of sigmoid colon contained within the left inguinal hernia. No evidence of mucosal thickening or pericolonic fat stranding to suggest the presence of incarcerated bowel. There is large well-formed blood the large bowel. No abnormal distention, wall thickening, or evidence of bowel obstruction. Appendix is normal. PELVIC ORGANS/BLADDER: The urinary tong dder is severely distended with normal wall contour. The previously described bladder wall thickening is not well appreciated on current study. The prostate gland is normal for image technique with coarse calcifications. LYMPH NODES: No lymphadenopathy. VESSELS: There is atherosclerotic calcification of the abdominal aorta and its major abdomen and pelvic branches. No evidence of aneurysmal dilatation. PERITONEUM / RETROPERITONEUM: No free air or fluid. BONES: Redemonstration of numerous sclerotic foci throughout the bones. Multilevel degenerative disease of the spine. SOFT TISSUES: Unremarkable. IMPRESSION: 1. Short segment loop of sigmoid colon contained within a left inguinal hernia. No evidence of bowel incarcerated or bowel obstruction. 2. Large well-formed stool burden throughout the colon can present clinically as constipation. 3. Distended urinary bladder with mild bilateral hydronephrosis. Patient may benefit from Almaguer catheter placement for relief. 4. Subtle groundglass nodule which measures approximately 9 x 9 mm in the right lower lobe (series 2 image 6; series 301 image 64), unchanged from prior examination. Recommend nonemergent dedicated chest CT for complete assessment of the lungs. 5. 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 6. Small sliding gastric hiatal hernia. Signed by: Jovanny Urbina MD on 12/27/2019 2:57 PM Dictated By: JOVANNY URBINA MD 56 Transcribed By: JOSEPH on 12/27/191456 COPY TO: ELEANOR KESSLER MD Blood leukocytes automated count (number/volume) 2019-10-23 04:45:00 Test Item White Blood Count (test code = 6690-2) 11.33 4.8-10.8 [facility] automated count (number/volume)2019-10-23 04:45:00* Test Item Value Reference Range Interpretation Comments Red Blood Count (test code = 789-8) 3.80 4.3-5.7 [facility] hemoglobin measurement (moles/volume)2019-10-23 04:45:00* Test Item Value Reference Range Interpretation Comments Hemoglobin (test code = 83430-0) 11.2 14.0-18.0 [facility] AllianceAutomated blood hematocrit (volume fraction)2019-10-23 04:45:00* Test Item Value Reference Range Interpretation Comments Hematocrit (test code = 4544-3) 34.3 38.2-49.6 [facility] AllianceAutomated erythrocyte mean corpuscular pgoppf2485-09-32 04:45:00* Test Item Value Reference Range Interpretation Comments Mean Corpuscular Volume (test code = 787-2) 90.3 81-99 [facility] AllianceAutomated erythrocyte mean corpuscular hemoglobin (mass per erythrocyte)2019-10-23 04:45:00* Test Item Value Reference Range Interpretation Comments Mean Corpuscular Hemoglobin (test code = 785-6) 29.5 28-32 [facility] AllianceAutomated erythrocyte mean corpuscular hemoglobin concentration measurement (mass/volume)2019-10-23 04:45:00* Test Item Value Reference Range Interpretation Comments Mean Corpuscular Hemoglobin Concent (test code = 786-4) 32.7 31-35 [facility] AllianceRDW RxfFv-Gtv7471-18-28 04:45:00* Test Item Value Reference Range Interpretation Comments Red Cell Distribution Width (test code = 50923-8) 13.0 11.7 -14.4 [facility] AllianceAutomated blood platelet count (count/volume)2019-10-23 04:45:00* Test Item Value Reference Range Interpretation Comments Platelet Count (test code = 777-3) 404 140-360 [facility] AllianceAutomated blood segmented neutrophil count as percentage of total hqqfbalerb5490-67-52 04:45:00* Test Item Value Reference Range Interpretation Comments Neutrophils (%) (Auto) (test code = 88321-7) 65.3 38.7-80.0 [facility] AllianceAutomated blood lymphocyte count as percentage ot total skuxqnijga8460-45-21 04:45:00* Test Item Value Reference Range Interpretation Comments Lymphocytes (%) (Auto) (test code = 736-9) 19.5 18.0-39.1 [facility] AllianceAutomated blood monocyte count as percentage of total pndkclweka5358-07-36 04:45:00* Test Item Value Reference Range Interpretation Comments Monocytes (%) (Auto) (test code = 5905-5) 7.4 4.4-11.3 [facility] AllianceAutomated blood eosinophil count as percentage of total kywanowtgh4921-88-60 04:45:00* Test Item Value Reference Range Interpretation Comments Eosinophils (%) (Auto) (test code = 713-8) 6.5 0.0-6.0 [facility] AllianceAutomated blood basophil count as percentage of total nekltehzos1645-97-67 04:45:00* Test Item Value Reference Range Interpretation Comments Basophils (%) (Auto) (test code = 706-2) 0.9 0.0-1.0 [facility] AllianceFluoroscopic procedure less than one hour vhufgmqx2599-48-48 04:45:00* Test Item Value Reference Range Interpretation Comments IM GRANULOCYTES % (test code = IM GRANULOCYTES %) 0.4 0.0- 1.0 [facility] AllianceAutomated blood neutrophil count 2019-10-23 04:45:00* Test Item Value Reference Range Interpretation Comments Neutrophils # (Auto) (test code = 751-8) 7.4 2.1-6.9 [facility]Bl[facility] lymphocytes count (number/volume) 2019-10-23 04:45:00* Test Item Value Reference Range Interpretation Comments Lymphocytes # (Auto) (test code = 05910-4) 2.2 1.0-3.[address] [facility] automated count (number/volume)2019-10-23 04:45:00* Test Item Value Reference Range Interpretation Comments Monocytes # (Auto) (test code = 742-7) 0.8 0.2-0.8 [facility] AllianceAutomated blood eosinophil count 2019-10-23 04:45:00* Test Item Value Reference Range Interpretation Comments Eosinophils # (Auto) (test code = 711-2) 0.7 0.0-0.4 [facility] AllianceAutomated blood basophil count (count/volume)2019-10-23 04:45:00* Test Item Value Reference Range Interpretation Comments Basophils # (Auto) (test code = 704-7) 0.1 0.0-0.1 [facility] AllianceFluoroscopic procedure less than one hour dkvdmssv2431-96-94 04:45:00* Test Item Value Reference Range Interpretation Comments Absolute Immature Granulocyte (auto (flex t code = Absolute Immature Granulocyte (auto) 0.05 0-0.1 [facility] sodium measurement (moles/volume)2019-10-23 04:45:00* Test Item Value Reference Range Interpretation Comments Sodium Level (test code = 2951-2) 143 136-145 [facility] potassium measurement (moles/volume)2019-10-23 04:45:00* Test Item Value Reference Range Interpretation Comments Potassium Level (test code = 2823-3) 3.3 3.5-5.1 [facility] chloride measurement (moles/volume)2019-10-23 04:45:00* Test Item Value Reference Range Interpretation Comments Chloride Level (test code = 2075-0) 115 98-107 [facility] carbon dioxide, total measurement (moles/volume)2019-10-23 04:45:00* Test Item Value Reference Range Interpretation Comments Carbon Dioxide Level (test code = 2028-9) 19 22-29 [facility] plasma anion twx9454-58-51 04:45:00* Test Item Value Reference Range Interpretation Comments Anion Gap (test code = 62748-5) 12.3 8-16 [facility] urea nitrogen measurement (mass/volume)2019-10-23 04:45:00* Test Item Value Reference Range Interpretation Comments Blood Urea Nitrogen (test code = 3094-0) 19 - [facility] creatinine measurement (mass/volume)2019-10-23 04:45:00* Test Item Value Reference Range Interpretation Comments Creatinine (test code = 2160-0) 1.46 0.72-1.25 [facility] plasma urea nitrogen/creatinine mass oakoy2234-39-92 04:45:00* Test Item Value Reference Range Interpretation Comments BUN/Creatinine Ratio (test code = 3097-3) 13 11-19 [facility] AllianceEstimated glomerular filtration rate (GFR) jngrdiepxdqkb7889-97-02 04:45:00* Test Item Value Reference Range Interpretation Comments Estimat Glomerular Filtration Rate (test code = 142229785) 47 >60 Ranges were taken from the National Kidney Disease Education Program and the [facility] [employer] literature.Reference ranges:60 or greater: Zbbeun54-77 ( for 3 consecutive months): Chronic kidney disease 15 or less: Kidney failureTexas Health Harris Medical Hospital AllianceGlucose axnejxsxrgj6136-87-40 04:45:00* Test Item Value Reference Range Interpretation Comments Glucose Level (test code = ECP0741) 86 74-118 [facility] plasma calcium measurement (mass/volume)2019-10-23 04:45:00* Test Item Value Reference Range Interpretation Comments Calcium Level (test code = 26970-1) 8.0 8.4-10.2 [facility] or plasma creatine kinase measurement (enzymatic activity/volume)2019-10-21 19:35:00* Test Item Value Reference Range Interpretation Comments Creatine Kinase (test code = 2157-6) 325 30-200 [facility] or plasma creatine kinase MB measurement (mass/volume)2019-10-21 19:35:00* Test Item Value Reference Range Interpretation Comments Creatine Kinase MB (test code = 20294-4) 7.50 0-5.0 [facility] AllianceTroponin I measurement by highly sensitive enzyme tusvojtaeyl0332-70-39 19:35:00* Test Item Value Reference Range Interpretation Comments Troponin I (test code = 97262-2) 0.037 0-0.300 [facility] AlliancePhosphorus djroxwxxsol4424-74-28 04:35:00 * Test Item Value Reference Range Interpretation Comments Phosphorus Level (test code = AUP6909) 3.1 2.3-4.7 [facility] plasma magnesium measurement (mass/volume)2019-10-21 04:35:00* Test Item Value Reference Range Interpretation Comments Magnesium Level (test code = 45651-6) 2.6 1.3-2.1 [facility] or plasma total bilirubin measurement (mass/volume)2019-10-21 04:35:00* Test Item Value Reference Range Interpretation Comments Total Bilirubin (test code = 1975-2) 0.5 0.2-1.2 [facility] AllianceFluoroscopic procedure less than one hour ildlzwiz9497-88-62 04:35:00* Test Item Value Reference Range Interpretation Comments Aspartate Amino Transf (AST/SGOT) (test code = Aspartate Amino Transf (AST/SGOT)) 30 5-34 [facility] or plasma alanine aminotransferase measurement (enzymatic activity/volume)2019-10-21 04:35:00* Test Item Value Reference Range Interpretation Comments Alanine Aminotransferase (ALT/SGPT) (test code = 1742-6) 31 0-55 [facility] protein measurement (mass/volume)2019-10-21 04:35:00* Test Item Value Reference Range Interpretation Comments Total Protein (test code = 2885-2) 7.0 6.5-8.1 [facility] albumin measurement (mass/volume)2019-10-21 04:35:00* Test Item Value Reference Range Interpretation Comments Albumin (test code = 1751-7) 2.8 3.5-5.0 [facility] AlliancePlasma globulin measurement (mass/volume) 2019-10-21 04:35:00* Test Item Value Reference Range Interpretation Comments Globulin (test code = 25325-7) 4.2 2.3-3.5 [facility] plasma albumin/globulin mass mmwox0344-57-72 04:35:00* Test Item Value Reference Range Interpretation Comments Albumin/Globulin Ratio (test code = 1759-0) 0.7 0.8-2.0 [facility] or plasma alkaline phosphatase measurement (enzymatic activity/volume)2019-10-21 04:35:00* Test Item Value Reference Range Interpretation Comments Alkaline Phosphatase (test code = 6768-6) 87 40-150 [facility] or plasma thyrotropin measurement by detection limit <= 0.005 miu/l (units/volume)2019-10-21 04:35:00* Test Item Value Reference Range Interpretation Comments Thyroid Stimulating Hormone (TSH) (test code = 80660-8) 0.795 0.350-4.940 [facility] AllianceCT ABD/PEL WO [id number]-[id number] 19:13:[address] [address] Patient Name: RAPHAEL HERNADEZ MR #: [id number] : 1940 Age/Sex: 78/M Req #: [id number] Adm Physician: Ordered by: APRIL POWELL Report #: [id number] Location: [facility] Room/Bed: Procedure: [id number] HOPD/CT ABD/PEL WO CONTRAST-HOPD Exam Date: 10/20/19 [...] TO: APRIL POWELL CXR 1 VEW - [id number] 19:04:00 [address] [address] Patient Name: RAPHAEL HERNADEZ MR #: [id number] : 1940 Age/Sex: 78/M Req #: [id number] Adm Physician: Ordered by: APRIL POWELL Report #: [id number] Location: [facility] Room/Bed: Procedure: [id number] HOPD/CXR 1 VEW - HO PD Exam Date: 10/20/19 Exam Time: 1844 REPORT STATUS: Signed Examination: Single AP view [...] on 10/20/191903 COPY TO: APRIL POWELL Blood xwxojmp1998-93-26 18:05:00* Test Item Value Reference Range Interpretation Comments Blood Culture (test code = 01516704) NO GROWTH AFTER 48 HOURS [facility],PJNGBJ7006-13-61 16:50:00 RUN DATE: 05/13/19 [facility] - Lab PAGE 1 RUN TIME: 1650 Specimen Inqui ry RUN USER: INTERFACE PATIENT: RAPHAEL HERNADEZ EDD ACCT #: [id number] LOC: FELICIANO U #: [id number] AGE/SX: 78/M ROOM: RE05/09/19[facility]: Fabien Hess MD : 42 BED: DIS: STATUS: [facility] TLOC: SPEC #: [id number] RECD: 05/09/19 STATUS: [facility] #: [id number] JAVIER: 05/09/19-1114 [facility] DR: Fabien Hess MD ENTERED: 05/09/19 SP TYPE: BX BONE OTHR DR: Brittany Light MD TUMOR REGISTRYORDERED: GROSS COPIES TO: Brittany Reed MD [address] [facility] [address] [place] [address] TUMOR REGISTRY Jayden Hess MD [address] [place] [address] MARKERS: INTRAD EPARTMENTAL CONSULT, MALIGNANCY PROCEDURES: GROSS (05/13/19-1524) TISSUES: 1. BONE - RINSE, 6 SLIDES 2. BONE MARROW, NOS - BX CLINICAL HISTORY COLLECTION DATE: 05/09/19 HISTORY PROSTATE CANCER COMMENT Immunostains were prepared on the bone core biopsy at [facility] and interpreted at [facility]. The controls stain neelimaiat elizabeth. The tumor is positive for PSA and PSAP. The findings are consistent with metastatic prostate carcinoma. Intradepartmental consultation: RRB. CONTINUED ON NEXT PAGE RUN SUSANNE E: 05/13/19 [facility] Lab PAGE 2 RUN TIME: 1650 Specimen Inquiry RUN USER: INTERFACE SPEC #: [id number] PATIENT: SATYARAPHAEL MABEL # [id number] (Continued) FINAL DIAGNOSIS Right iliac jian ne, fine needle aspirate biopsy: RARE COLLECTIONS OF ATYPICAL GLANDULAR E PITHELIAL CELLS WITH PROMINENT NUCLEOLI CONSISTENT WITH METASTATIC PROS TATIC CARCINOMA FEW BONE MARROW ELEMENTS SEEN POSITIVE FOR MALIGNA NCY Right iliac bone, core biopsy: METASTATIC TUMOR CONSISTENT WITH METASTATIC PROSTATE CARCINOMA, BONE DMW/estela D 64500, 01449, 8 7607, 83315 MACROSCOPIC The specimens consist of six aspirate [...] up microscopic evaluation. MIAH PERFORMED A T [facility] [address] [place] [address] [phone] MICROSCOPIC All o f the stains, including any controls performed, stain appropriately. TAMIKO ROSCOPIC PERFORMED AT [facility] [address] [facility] [place] [address] [phone])[phone] PERFORMING SIT E Diagnosis performed at: [facility] [address] [facility] CONTINUED ON NEXT PAGE RUN DATE: 05/13/19 [facility] PAGE 3 RUN TIME: 1650 Specimen Inquiry RUN USER: INTERFACE SPEC #: [id number] PATIENT: RAPHAEL HERNADEZ EDD #[id number] (Continu ed) PERFORMING SITE (Continued) [place] [address] Signed SIGNATURE ON FILE Shakira Ramires MD 05/13/19 1650 END OF REPORT - CT GUID NDL [id number] 21:34:00 Name: RAPHAEL HERNADEZ EDD [facility] : 1940 Age/S: 78 / M [address] Unit #: [id number] Loc: [place] [address] Phys: Fabien Hess MD Acct: [id number] Dis Date: Status: [facility] PHONE #: [phone] Exam Date: 05/09/2019 1200 FAX #: [phone] Reason: EXAMS: CPT CODE: [id number] CT GUID [facility] [address] EXAM: CT-guided pelvic bone biopsy; INFORMATION: Patient [...] within the right iliac wing. Location code: [facility] at 2134 Reported and signed by: Fabien Hess M.D. CC: Brittany Tuttle MD; Fabien Hess MD Technologist:Jamal Vuong RT(R),(MR),(CT) CTDI: DLP: Trnscb Date/Time: 05/12/2019 (2133) [email or web address] Orig Print D/T: S: 05/12/2019 (2136) PAGE 1 Signed Report - CT GUID ND [id number] 21:34:00 Name: RAPHAEL HERNADEZ EDD [facility] : 1940 Age/S: 78 / M [address] [facility] Unit #: [id number] Loc: [place] [address] Phys: Fabien Hess MD Acct: [id number] Dis Date: Status: [facility] PHONE #: [phone] Exam Date: 05/09/2019 1200 FAX #: [phone] Reason: BONE MARROW BX EXAMS: CPT CODE: [id number] CT GUID [facility] [address] EXAM: CT-guided pelvic bone biopsy; INFORMATION: Patient [...] within the right iliac wing. Location code: [facility] at 2133 Reported and signed by: Fabien Hess M.D. CC: Brittany Tuttle MD; Fabien Hess MD Technologist:Jamal Vuong RT(R),(MR),(CT) CTDI: DLP: Trnscb Date/Time: 05/12/2019 (2133) [email or web address].[email or web address] Orig Print D/T: S: 05/12/2019 (2136) PAGE 1 Signed Report BASIC METABOLIC [id number] 10:18:00* Test Item Value Reference Range Interpretation [...] CA) 9.4 mg/dL 8.5-10.1 N BASIC METABOLIC [id number] 10:17:00* Test Item Value Reference Range Interpretation [...] code = CA) mg/dL 8.5-10.1 CBC W/AUTO [id number] 09:53:00* Test Item Value Reference Range Interpretation [...] (test code = MDIFF) NO CBC W/AUTO [id number] 09:50:00* Test Item Value Reference Range Interpretation [...] code = BA#) K/mm3 0.0-0.2 BASIC METABOLIC [id number] 16:32:00* Test Item Value Reference Range Interpretation [...] CA) 9.5 mg/dL 8.5-10.1 N BASIC METABOLIC [id number] 16:26:00* Test Item Value Reference Range Interpretation [...] (test code = CA) mg/dL 8.5-10.1 PROTHROMBIN [id number] 11:01:00* Test Item Value Reference Range Interpretation [...] Mechanical prosthetic heart valves (2.5-3.5) THROMBOPLASTIN TIME [id number] 11:01:00* Test Item Value Reference Range Interpretation Comments THROMBOPLASTIN TIME PARTIAL (test code = PTT) 28.9 seconds 25.0-36. 5 N - CT PELVIS W/O [id number] 15:39:00 Name: RAPHAEL HERNADEZ EDD [facility] : 1940 Age/S: 78 / M [address] Unit #: [id number] Loc: [place] [address] Phys: Fabien Hess MD Acct: [id number] Dis Date: Status: [facility] CLI PHONE #: [phone] Exam Date: 05/02/2019 3235 FAX #: [phone] Reason: PROSTATE CA Report Has Been Amended EXAMS: CPT CODE: [id number] CT PELVIS W/O CONTRAST 41736 Addendum - 05/05/2019 SIGNED 05/05/2019 ADDENDUM: [id number] CT/CTPELVISWO Upon review with the ordering clinician, [...] malignant appearing lesions in the spine. at 1533 Reported and signed by: Dario Guillen MD Transcribed: 05/05/2019 (1702) [email or web address] [address] CT OF THE PELVIS WITH SAGITTAL AND CORONAL RECONSTRUCTIONS DIAGNOSIS: Prostate cancers COMPARISON: No prior studies are available at this institution Noncontrast CT were performed with thin sections and reconstructions were obtained. CT radiation dose optimization is achieved for this examination by the use of a CT protocol in accordance with ACR practice standards and adherence to complaint investigator's recommendations. FINDINGS: Calcified granulomas present in the [...] Signed Report (CONTINUED) Name: RAPHAEL HERNADEZ EDD [facility] : 1940 Age/S: 78 / M [address] [facility] Unit #: [id number] Loc: [place] [address] Phys: Fabien Hess MD Acct: [id number] Dis Date: Status: DEP CLI PHONE #: [phone] Exam Date: 05/02/2019 7205 FAX #: [phone] Reason: PROSTATE CA Report Has Been Amended EXAMS: CPT CODE: [id number] CT PELVIS W/ O CONTRAST 81216 <Continued> Atherosclerotic disease is seen throughout the [...] RT(R),(MR),(CT) C TDI: DLP: Trnscb Date/Time: 05/02/2019 (0945) [email or web address] Orig Print D/T: S: 05/02/2019 (3344) PAGE 2 Signed Report - CT PELVIS W/O CONTRAST 2019-05-02 15:09:00 Name: RAPHAEL HERNADEZ EDD [facility] : 1940 Age/S: 78 / M [address] [facility] Unit #: [id number] Loc: [place] [address] Phys: Fabien Hess MD Acct: [id number] Dis Date: Status: REG CLI PHONE #: [phone] Exam Date: 05/02/2019 1355 FAX #: [phone] Reason: PROSTATE CA EXAMS: CPT CODE: [id number] CT PELVIS W/O CONTRAST 56954 CT OF THE PELVIS WITH SAGITTAL AND CORONAL RECONSTRUCTIONS DIAGNOSIS: Prostate cancers COMPARISON: No prior studies are available at this institution Noncontrast CT were performed with thin sections and reconstructions were obtained. CT radiation dose optimization is achieved for this examination by the use of a CT protocol in accordance with ACR practice standards and adherence to complaint investigator's recommendations. FINDINGS: Calcified granulomas present in the [...] Leyva RT(R),(MR),(CT) CTDI: DLP: Trnscb Date/Time: 05/02/2019 (4522) [email or web address] Orig Print D/T: S: 05/02/2019 (3086) PAGE 1 Signed Report BONE and/or JOINT WHOLE [id number] 18:46:00 [place] [address] Patient Name: RAPHAEL HERNADEZ MR #: [id number] : 1940 Age/Sex: 78/M Req #: [id number] Adm Physician: Ordered by: CHUCK HENRY MD Report #: [id number] Location: [place] Room/Bed: Procedure: [id number] NM/BONE and/or JOINT WHOLE BODY Exam Date: 01/30/19 Exam Ti me: 0855 REPORT STATUS: Signed B one Scan, delayed phase INDICATION: Prostate cancer; rising PSA. COMP ARISON: Prior bone scan 04/19/2018; CT pelvis 01/30/2019 [...] COPY TO: CHUCK HENRY MD CT PELVIS [id number] 09:54:00 [place] [address] Patient Name: RAPHAEL HERNADEZ MR #: [id number] : 1940 Age/Sex: 78/M Req #: [id number] Adm Physician: Ordered by: CHUCK HENRY MD Report #: [id number] Location: [place] Room/Bed: Procedure: CT/CT P JAN W Exam [...] COPY TO: CHUCK MONGE MD CHEST 2 [id number] 12:04:00 [place] [address] Patient Name: RAPHAEL HERNADEZ MR #: [id number] : 1940 Age/Sex: 77/M Req #: [id number] Adm Physician: Ordered by: CHUCK HENRY MD Report #: [id number] Location: [place] Room/Bed: Procedure: [id number] DX/CHES T 2 VIEWS Exam Date: 09/18/18 [...] Sherice HENRY MD BONE and/or JOINT WHOLE [id number] 15:30:00 [place] [address] Patient Name: RAPHAEL HERNADEZ MR #: [id number] : 1940 Age/Sex: 77/M Req #: [id number] [facility] Physician: Ordered by: CHUCK HENRY MD Report #: [id number] Location: [place] R oom/Bed: Procedure: NM/BONE and/or JOINT WHOLE BODY Exam Date: [...] TO: VICENTE HENRY RD, MD MRI PELVIS [id number] 12:10:00 [place] [address] Patient Name: RAPHAEL HERNADEZ MR #: [id number] : 1940 Age/Sex: 77/M Req #: [id number] Adm Physician: Ordered by: CHUCK HENRY MD Report #: [id number] Location: [place] Room/Bed: Procedure: [id number] MRI/MRI PELVIS WOW Exam Date: Exam Time: [...] PM Dictated By: OSIEL JAMES MD, MD 1098 Transcribe d By: JOSEPH on 04/19/18 5079 COPY TO: CHUCK HENRY MD KNEE 1- 2 VIEWS BILATERAL [facility] [address] [place] [address] Patient Name: RAPHAEL HERNADEZ MR #: [id number] : 1940 Age/Sex: 76/M Req #: [id number] Adm Physician: Ordered by: RAFA HU MD Report #: [id number] Location: [facility] Room/Bed: Procedure: [id number] DX/KNEE 1-2 VIEWS BILATERAL Exam Da te: [...] gned By: WILD KHOURY MD on 09/06/17 8727 Transcribed By: MARYLIN on 09/06/17 0363 COPY TO: RAFA HU MD
--- NOTE | 2019-12-27 15:15 | NUR ---
[facility] NOTIFIED OF NEED FOR TRANSFER, ETA 45 MINUTES
[2019-12-27 16:08] LABS: BASOPHILS # (AUTO) 0.1 (0.0-0.1); BASOPHILS % 0.9 % (0.0-1.0); EOSINOPHILS # (AUTO) 0.2 (0.0-0.4); EOSINOPHILS % 1.8 % (0.0-6.0); HEMATOCRIT 38.6 % (38.2-49.6); HEMOGLOBIN 12.7 g/dL (14.0-18.0); LYMPHOCYTES # (AUTO) 1.8 (1.0-3.2); LYMPHOCYTES % 19.9 % (18.0-39.1); MEAN CORPUSCULAR HGB CONC 32.9 g/dL (31-35); MEAN CORPUSCULAR VOLUME 91.3 fL (81-99); MONOCYTES # (AUTO) 0.5 (0.2-0.8); MONOCYTES % 5.8 % (4.4-11.3); NEUTROPHILS # (AUTO) 6.4 (2.1-6.9); NEUTROPHILS % 71.3 % (38.7-80.0); PLATELET COUNT 284 x10e3/uL (140-360); RED BLOOD COUNT 4.23 x10e6/uL (4.3-5.7); RED CELL DISTRIBUTION WIDTH 14.3 % (11.7-14.4)
--- NOTE | 2019-12-27 16:20 | NUR ---
1420, PT FOUND IN FLOOR, STATES HE WAS UP USING URINAL AND FELL. URINE NOTED ON FLOOR. PT IS ALERT AND ORIENTED, SIDE RAILS WERE UP, PT WAS ON MONITOR, CALL LIGHT ON THE BED, BUT PT STATES HE COULD NOT FIND IT. DR KESSLER AND VICKI ANTONIO WERE IN [facility] ROOM 15 MINUTES PRIOR TO FALL AND GAVE PT URINAL AND ASSISTED WITH RAISING HEAD OF BED, Addendum: 12/27/19 at 1750 by ASHLEIGH at 1620 pt found on floor
[2019-12-27] MEDS ORDERED: TETANUS/DIPHTHERIA TOX ADULT 0.5 ML SYR IM ONE (16:30)
[2019-12-27] MEDS ORDERED: NEOMYCIN/POLYMYX/BACITR OINT 0.9 GM PKT ONE (16:36)
[2019-12-27] MEDS ORDERED: TETANUS/DIPHTHERIA TOX ADULT 0.5 ML SYR ONE (16:36)
--- NOTE | 2019-12-27 16:45 | NUR ---
transfer to [facility] delayed r/t fall, pt having CT and Left knee xray done.
--- NOTE | 2019-12-27 16:55 | NUR ---
Note undone in [facility] - 12/27/19 at 1749 by ASHLEIGH 1420, PT FOUND IN FLOOR, STATES HE WAS UP USING URINAL AND FELL. URINE NOTED ON FLOOR. PT IS ALERT AND ORIENTED, SIDE RAILS WERE UP, PT WAS ON MONITOR, CALL LIGHT ON THE BED, BUT PT STATES HE COULD NOT FIND IT. DR KESSLER AND VICKI ANTONIO WERE IN [facility] ROOM 15 MINUTES PRIOR TO FALL AND GAVE PT URINAL AND ASSISTED WITH RAISING HEAD OF BED, Addendum: 12/27/19 at 1708 by ASHLEIGH Thomas Amendment undone in [facility] - 12/27/19 at 1749 by ASHLEIGH Saez* CALL LIGHT WAS IN BED WITH PATIENT BUT HE STATED HE COULD NOT FIND IT. PT STATES HE WANTED TO STAND UP TO PEE, PT STATES HE HIT HIS HEAD ON THE WALL AND HAS A ABRASION TO LEFT KNEE, NO BLEEDING NOTED, WOUND CLEANED AND NEOSPORIN APPLIED AND BANDAID PLACED. PT ALERT AND ORIENTED AT THIS TIME. FAMILY GIVEN UPDATE ON PATIENT AND FALL. SON AT BEDSIDE. PT WALKED TO WHEELCHAIR AND TAKEN TO CT AND XRAY, PT STATED HE DOES NOT NEED XRAY BUT DECIDED TO HAVE THEM TAKEN.
--- NOTE | 2019-12-27 17:00 | NUR ---
Mary Vincent spa manager/esthetician, Eduin Gunderson suppervisor and Kyle MAK notified of patients fall.
--- NOTE | 2019-12-27 17:00 | NUR ---
PT ASSISTED INTO WC AND TAKEN TO BATHROOM.
--- NOTE | 2019-12-27 17:00 | Diagnostic Imaging Report ---
Exam: Head CT without contrast History: Trauma, fall Comparison studies: None Technique: Axial images were obtained from the skull base to the vertex. Coronal and sagittal images reconstructed from the axial data. Dose modulation, iterative reconstruction, and/or weight based adjustment of the mA/kV was utilized to reduce the radiation dose to as low as reasonably achievable. Radiation dose: Total DLP: 1090.28 mGy*cm. Estimated effective dose: DLP x 0.015 Intravenous contrast: None Findings: Scalp: No abnormalities. Bones: No fractures, blastic or lytic lesions. Brain sulci: Moderately prominent. Ventricles: Moderately dilated, slightly disproportionate to sulcal prominence which may be due to a degree of central greater peripheral cortical volume loss. Consider normal pressure hydrocephalus (NPH) only in the appropriate clinical setting. No acute hydrocephalus. Incidental few nonspecific right occipital dystrophic or vascular calcifications. Extra-axial spaces: No masses, no fluid collection. Parenchyma: A few subtle hypodensities in the supratentorial white matter are nonspecific but are most compatible with chronic microvascular ischemic changes. No mass, acute hemorrhage or acute or chronic cortical insult. There is moderate generalized parenchymal volume loss with moderate volume loss along the anteromedial temporal lobes and hippocampi which can be seen in patients with Alzheimer's/dementia spectrum in the appropriate clinical setting. Sellar/suprasellar region: No abnormalities. Craniocervical junction: Patent foramen magnum. No Chiari one malformation. Incidental findings: Atherosclerotic calcifications in the carotid siphons. Bilateral intraocular lens replacements. Degenerative changes in the partially imaged cervical spine. Mild polypoid mucosal thickening in the bilateral ethmoids and small secretions or mucosal thickening in the right maxillary sinus IMPRESSION: No acute abnormalities. Chronic findings: 1. Moderate generalized volume loss with bilateral anteromedial temporal lobe/hippocampal volume loss at described. 2. Mild chronic microvascular ischemic changes. 3. Nonspecific ventriculomegaly may be due to volume loss. Consider NPH only in the appropriate clinical setting. No acute hydrocephalus. Signed by: Dr. Wallace Fierro M.D. on 12/27/2019 4:57 PM
--- NOTE | 2019-12-27 17:50 | Diagnostic Imaging Report ---
KNEE 3VW LT - HOPD - 3 views HISTORY: Knee pain after fall. COMPARISON: None available. FINDINGS: BONES/JOINTS: No acute fracture or dislocation. There are mild to moderate tricompartmental degenerative changes. There are multiple posterior calcified loose bodies. No knee joint effusion. SOFT TISSUES: No focal soft tissue abnormality. Atherosclerotic calcification of the lower extremity vessels. The soft tissues appear unremarkable. IMPRESSION: 1. No acute fracture or dislocation. 2. Mild to moderate tricompartmental osteoarthritis of the knee with posterior intra-articular loose bodies. Signed by: Armando Velázquez MD on 12/27/2019 5:47 PM
--- NOTE | 2019-12-27 17:54 | Emergency Department Note ---
History of Present Illnes History of Present Illness Chief Complaint: Abdominal Complaints History of Present Illness This is a 79 year old male . Historian: Patient Arrival Mode: Car Additional Treatment EPIDEMIOLOGIST: none Massotherapist Required: No Onset (how long ago): hour(s) (16) Location: left lower abdomen Quality: pain Radiation: Reports non-radiation Severity: moderate Onset quality: sudden Timing of current episode: constant Progression: unchanged Chronicity: recurrent Relieving factors: none Exacerbating factors: none, other (ate today without difficulty no nausea or vomiting) Risk factors: hernia Past Medical/Family History Physician Review I have reviewed the patient's past medical and family history. Any updates have been documented here. Past Medical History Recent Fever: No Clinical Suspicion of Infectio: No New/Unexplained Change in Ment: No Past Medical History: Hypertension, Cancer, Chronic Kidney Disease Other Medical History: ENLARGED PROSTATE prostate cancer with bone mets as per son Past Surgical History: Knee Replacement Other Surgery: LEFT KNEE REPLACEMENT Social History Smoking Cessation: Former smoker (stopped greater than 50 years ago) Counseling Performed: No Alcohol Use: None Any Illegal Drug Use: No TB Exposure/Symptoms: No Physically hurt or threatened: No Other Last Tetanus: unknown Any Pre-Existing Lines (PICC,: No Review of Systems Review of Systems Constitutional: Reports no symptoms EENTM: Reports no symptoms Cardiovascular: Reports no symptoms Respiratory: Reports no symptoms Gastrointestinal: Reports abdominal pain (as per hpi) Genitourinary: Reports no symptoms Musculoskeletal: Reports no symptoms Integumentary: Reports no symptoms Neurological: Reports no symptoms Psychological: Reports no symptoms Endocrine: Reports no symptoms Review of other systems: All other systems negative Physical Exam Related Data Allergies: Coded Allergies: No Known Allergies (Unverified , 09/18/18) Triage Vital Signs Vital Signs Date Time Temp Pulse Resp B/P (MAP) Pulse Ox O2 Delivery O2 Flow Rate FiO2 12/27/19 13:05 98.0 76 18 181/100 99 Physical Exam CONSTITUTIONAL Constitutional: Present well-developed, Present well-nourished HENT HENT: Present normocephalic, Present atraumatic, Present oropharynx clear/moist, Present oropharynx normal EYES Eyes: Reports PERRL, Reports conjunctivae normal, Reports EOM normal, Reports lids normal NECK Neck: Present ROM normal, Present supple PULMONARY Pulmonary: Present effort normal, Present breath sounds normal CARDIOVASCULAR Cardiovascular: Present regular rhythm, Present heart sounds normal, Present intact distal pulses, Present capillary refill normal, Present normal rate GASTROINTESTINAL Abdominal: Present soft, Present bowel sounds normal, Present tender (left inguinal area), Present mass (left inguinal area not reducible also massright paraumbilical region freely reducible), Present rebound (inguinal area mass tender not reducible . also right para umbilical mass freely reducible) GENITOURINARY Genitourinary: Present exam deferred SKIN Skin: Present warm, Present dry MUSCULOSKELETAL Musculoskeletal: Present ROM normal NEUROLOGICAL Neurological: Present alert, Present oriented x 3, Present DTRs normal, Present no gross motor or sensory deficits PSYCHOLOGICAL Psychological: Present mood/affect normal, Present behavior normal, Present thought content normal, Present judgement normal Results Laboratory Result Diagram: 12/27/19 133 Laboratory Laboratory Tests Test 12/27/19 13:33 White Blood Count 8.94 x10e3/uL (4.8-10.8) Red Blood Count 4.23 x10e6/uL (4.3-5.7) Hemoglobin 12.7 g/dL (14.0-18.0) Hematocrit 38.6 % (38.2-49.6) Mean Corpuscular Volume 91.3 fL (81-99) Mean Corpuscular Hemoglobin 30.0 pg (28-32) Mean Corpuscular Hemoglobin Concent 32.9 g/dL (31-35) Red Cell Distribution Width 14.3 % (11.7-14.4) Platelet Count 284 x10e3/uL (140-360) Neutrophils (%) (Auto) 71.3 % (38.7-80.0) Lymphocytes (%) (Auto) 19.9 % (18.0-39.1) Monocytes (%) (Auto) 5.8 % (4.4-11.3) Eosinophils (%) (Auto) 1.8 % (0.0-6.0) Basophils (%) (Auto) 0.9 % (0.0-1.0) Neutrophils # (Auto) 6.4 (2.1-6.9) Lymphocytes # (Auto) 1.8 (1.0-3.2) Monocytes # (Auto) 0.5 (0.2-0.8) Eosinophils # (Auto) 0.2 (0.0-0.4) Basophils # (Auto) 0.1 (0.0-0.1) Absolute Immature Granulocyte (auto 0.03 x10e3/uL (0-0.1) Lab results reviewed: Yes Imaging Imaging results reviewed: Yes Impressions ct of the brain and left knee xray without any acute disease. Chronic changes Diagnostics Tests Diagnostic test(s) reviewed: Yes Assessment & Plan Assessment & Plan Final Impression: (1) Inguinal hernia (2) Incarcerated left inguinal hernia Depart Disposition: ADMITTED Last Vital Signs Date Time Temp Pulse Resp B/P (MAP) Pulse Ox O2 Delivery O2 Flow Rate FiO2 12/27/19 17:44 68 20 98 12/27/19 15:35 178/98 12/27/19 13:05 98.0 Home Meds Reported Medications Lisinopril/Hydrochlorothiazide (LISINOPRIL-HCTZ 20-12.5 MG TAB) 1 Each Tablet, 1 TAB PO DAILY 09/20/18 Tamsulosin Hcl* (FLOMAX*) 0.4 Mg Cap, 0.4 MG PO DAILY, #30 CAP 09/18/18 Atorvastatin Calcium (ATORVASTATIN CALCIUM) 20 Mg Tablet, 10 MG PO HS, #30 TAB 09/18/18 Medications in the ED Lorazepam 0.5 mg ONCE STAT IV Last administered on 12/27/19at 14:02; Admin Dose 0.5 MG; Start 12/27/19 at 13:20; Stop 12/27/19 at 13:44; Status DC Lorazepam 2 mg STK-MED ONCE .ROUTE ; Start 12/27/19 at 14:18; Stop 12/27/19 at 14:13; Status DC Ondansetron HCl 4 mg Q4H PRN IV NAUSEA AND VOMITING; Start 12/27/19 at 15:00; Stop 01/26/20 at 14:59 Potassium Chloride/Dextrose/ Sod Cl 1,000 ml @ 125 mls/hr Q8H IV ; Start 12/27/19 at 15:00; Stop 01/26/20 at 14:59 ELEANOR KESSLER MD Dec 27, 2019 17:54
[2019-12-27 18:18] VITALS: BP 155/94
--- NOTE | 2019-12-27 19:20 | NUR ---
RECEIVED REPORT FROM PREVIOUS NURSE. CALL LIGHT WITHIN REACH. PATIENT IN BED. SON AT BEDSIDE
[2019-12-27 20:00] VITALS: BP 155/87
[2019-12-27 20:09] VITALS: BP 155/87
[2019-12-27] MEDS: D5.45%NS/KCL 20MEQ 1,000 ML IV SCH (20:30)
[2019-12-27] MEDS ORDERED: AZO BLADDER CO300 MG PO (23:42)
[2019-12-27] MEDS ORDERED: ACETAMINOPHEN325 M1 PO (23:42)
[2019-12-28] VITALS (9 sets, daily range): BP systolic 142–155; BP diastolic 81–96
[2019-12-28] MEDS ORDERED: PNEUMOCOCCAL VACCINE POLYVALENT 23 MCG/0.5 ML VIAL IM SCH (00:27)
--- NOTE | 2019-12-28 04:55 | NUR ---
PREVIOUS IV WITH CATH REMOVED AND NEW IV PLACED
[2019-12-28] MEDS: D5.45%NS/KCL 20MEQ 1,000 ML IV SCH ×4 (06:20→21:35)
--- NOTE | 2019-12-28 07:01 | NUR ---
GAVE BEDSIDE SHIFT REPORT TO ONCOMING NURSE. CALL LIGHT WITHIN REACH. PATIENT IN BED. HOURLY ROUNDING PERFORMED.
--- NOTE | 2019-12-28 07:23 | NUR ---
SPOKE TO DR. Davin CLEANING REGARDING CONSULTATION FOR . RAPHAEL HERNADEZ, DR. CLEANING STATED, "IS THAT THE CURTIS WITH THE HERNIA...I WILL SEE HIM LATER."
--- NOTE | 2019-12-28 09:48 | NUR ---
PATIENT COMPLAINING OF LEFT LOWER ABDOMINAL AREA, CALLED DR. Davin CLEANING'S OFFICE, SPOKE TO JOSÉ.
[2019-12-28] MEDS: POTASSIUM CHLORIDE 20 MEQ TAB CR PO SCH ×2 (12:30→12:52)
[2019-12-28] MEDS: LISINOPRIL 20 MG TAB PO SCH (12:31)
[2019-12-28 12:41] LABS: ALBUMIN 3.4 g/dL (3.5-5.0); ANION GAP 12.9 mmol/L (8-16); CREATININE, SERUM 1.35 mg/dL (0.72-1.25)
[2019-12-28 12:45] LABS: POTASSIUM 2.9 mmol/L (3.5-5.1)
--- NOTE | 2019-12-28 13:33 | NUR ---
CALLED DR. GALDAMEZ' OFFICE, SPOKE TO CLAIMS INVESTIGATOR REGARDING CRITICAL POTASSIUM LEVEL.
--- NOTE | 2019-12-28 14:18 | History and Physical ---
Mr. Shell is a complex and elderly 79-year-old man, who presented to the freestanding emergency room with a complaint of left groin pain. HISTORY OF PRESENT ILLNESS: The patient is a vague historian. Reports he has noticed a lump there for few days and felt uncomfortable, and decided to come to the ER. PAST MEDICAL HISTORY: Complex with longstanding hypertension, diagnosed about 1989, hyperlipidemia. PAST SURGICAL HISTORY: Passed kidney stone in 1998. He had a right knee arthroscope in his teenage years. Colonoscopy with benign polypectomy by in 2002. He had an EGD, which showed esophageal ulcer in 2003, cystoscopy in 2003. Microwave treatment of prostate by [facility], and a biopsy of the prostate which was benign in 2013 and 2017. However, due to extremely elevated PSA, the patient had bone scan done, which suggested metastatic prostate cancer. RECENT HOME MEDICATIONS: Include a multivitamin, lisinopril/hydrochlorothiazide 20/12.5 daily, Flomax 0.4 mg daily, Prevagen vitamin, aspirin 81 mg daily, and atorvastatin 10 mg daily. PERSONAL AND SOCIAL HISTORY: He does not smoke. His a few years ago. FAMILY HISTORY: Father of [place] at age 72. Mother at 76 with Alzheimer's dementia. PHYSICAL EXAMINATION: GENERAL: At this time, shows a pleasant man, alert and comfortable. VITAL SIGNS: Blood pressure 180/90. HEAD, EYES, EARS, NOSE, AND THROAT: Unremarkable. NECK: No jugular venous distention. THORAX: Heart sounds, S1, S2 are equal. No murmurs. LUNGS: Clear. ABDOMEN: Protuberant. Normal bowel sounds. On the left groin, there is a mass approximately 8 cm x 4 cm and distended about 2.5 cm, it is non-reducible. LABORATORY STUDIES: Show a potassium slightly low. ASSESSMENT: 1. Inguinal incarcerated hernia, non-reducible. 2. Hypokalemia. 3. Hypertension. PLAN: We will continue antihypertensive medications. Replace potassium. Give Tylenol for pain. We will await surgical consultation. MD MARY LOU Luke/YANI /[id number] cc: James Sauer MD
[2019-12-28] MEDS ORDERED: MAGNESIUM HYDROXIDE 30 ML UDC PO ONE ×2 (14:45→15:00)
[2019-12-28] MEDS ORDERED: POTASSIUM CHLORIDE 20 MEQ TAB CR PO ONE (17:00)
[2019-12-28] MEDS: ACETAMINOPHEN 325 MG TAB PO SCH (17:51)
[2019-12-28] MEDS: TAMSULOSIN HCL 0.4 MG CAP PO SCH (17:53)
--- NOTE | 2019-12-28 19:10 | NUR ---
RECEIVED REPORT FROM PREVIOUS NURSE. CALL LIGHT WITHIN REACH. PATIENT IN BED
[2019-12-28] MEDS: HYDROMORPHONE 1MG/1ML INJ IV PRN (19:40)
[2019-12-28] MEDS: ONDANSETRON HCL INJ 2MG/ML 2ML 2 MG/ML VIAL IV PRN (19:40)
[2019-12-28] MEDS: ATORVASTATIN 10 MG TAB PO SCH (21:10)
[2019-12-29] VITALS: BP 142/79
[2019-12-29] MEDS: ONDANSETRON HCL INJ 2MG/ML 2ML 2 MG/ML VIAL IV PRN (00:44)
[2019-12-29] MEDS: HYDROMORPHONE 1MG/1ML INJ IV PRN (00:52)
[2019-12-29 04:00] VITALS: BP 124/74
[2019-12-29] MEDS: D5.45%NS/KCL 20MEQ 1,000 ML IV SCH ×3 (05:39→21:40)
[2019-12-29 05:47] LABS: ANION GAP 11.2 mmol/L (8-16); CALCIUM 8.1 mg/dL (8.4-10.2); CREATININE, SERUM 1.19 mg/dL (0.72-1.25); POTASSIUM 3.2 mmol/L (3.5-5.1)
[2019-12-29 06:08] LABS: BASOPHILS # (AUTO) 0.1 (0.0-0.1); BASOPHILS % 1.1 % (0.0-1.0); EOSINOPHILS # (AUTO) 0.2 (0.0-0.4); EOSINOPHILS % 3.3 % (0.0-6.0); HEMATOCRIT 32.4 % (38.2-49.6); HEMOGLOBIN 11.3 g/dL (14.0-18.0); MEAN CORPUSCULAR HEMOGLOBIN 33.6 pg (28-32); MEAN CORPUSCULAR HGB CONC 34.9 g/dL (31-35); MEAN CORPUSCULAR VOLUME 96.4 fL (81-99); MONOCYTES # (AUTO) 0.6 (0.2-0.8); MONOCYTES % 8.4 % (4.4-11.3); NEUTROPHILS # (AUTO) 4.3 (2.1-6.9); NEUTROPHILS % 58.9 % (38.7-80.0); PLATELET COUNT 182 x10e3/uL (140-360); RED BLOOD COUNT 3.36 x10e6/uL (4.3-5.7); RED CELL DISTRIBUTION WIDTH 15.7 % (11.7-14.4)
--- NOTE | 2019-12-29 07:43 | NUR ---
GAVE BEDSIDE SHIFT REPORT TO OREN SAUCEDA. CALL LIGHT WITHIN REACH. PATIENT IN BED. Addendum: 12/29/19 at 0745 by Delfina Keller RN SON AT BEDSIDE
[2019-12-29 08:10] VITALS: BP 133/80
[2019-12-29 09:52] VITALS: BP 133/80
[2019-12-29] MEDS: POTASSIUM CHLORIDE 20 MEQ TAB CR PO SCH (10:08)
[2019-12-29] MEDS: LISINOPRIL 20 MG TAB PO SCH (10:08)
[2019-12-29] MEDS: ACETAMINOPHEN 325 MG TAB PO SCH ×2 (10:08→18:45)
[2019-12-29] MEDS ORDERED: MAGNESIUM HYDROXIDE 30 ML UDC PO PRN (10:45)
[2019-12-29] MEDS ORDERED: POTASSIUM CHLORIDE 20 MEQ TAB CR PO ONE (11:15)
[2019-12-29 11:33] VITALS: BP 129/77
[2019-12-29 16:05] VITALS: BP 163/95
[2019-12-29] MEDS ORDERED: MAGNESIUM HYDROXIDE 30 ML UDC PO ONE (18:18)
[2019-12-29] MEDS: TAMSULOSIN HCL 0.4 MG CAP PO SCH (18:45)
--- NOTE | 2019-12-29 19:46 | NUR ---
Received pt in bed awake, son at bedside. Pt with no c/o at this time, bed in low position and locked. Call tsang and personal items within reach. Report received from prev nurse. Will cont to mon.
[2019-12-29] MEDS: ATORVASTATIN 10 MG TAB PO SCH (21:00)
[2019-12-30] VITALS (9 sets, daily range): BP systolic 133–154; BP diastolic 76–94
[2019-12-30 05:45] LABS: ANION GAP 8.6 mmol/L (8-16); BLOOD UREA NITROGEN 10 mg/dL (7-26); BUN/CREATININE RATIO 9 (6-25); CALCIUM 8.1 mg/dL (8.4-10.2); CARBON DIOXIDE 25 mmol/L (22-29); CHLORIDE 112 mmol/L (98-107); CREATININE, SERUM 1.15 mg/dL (0.72-1.25); EST GLOMERULAR FILTRATION RATE > 60 ML/MIN (60-); GLUCOSE 93 mg/dL (74-118); POTASSIUM 3.6 mmol/L (3.5-5.1); SODIUM 142 mmol/L (136-145)
[2019-12-30] MEDS: ACETAMINOPHEN 325 MG TAB PO SCH ×2 (09:00→17:47)
[2019-12-30] MEDS: LISINOPRIL 20 MG TAB PO SCH (09:00)
[2019-12-30] MEDS: POTASSIUM CHLORIDE 20 MEQ TAB CR PO SCH (09:00)
--- NOTE | 2019-12-30 13:10 | NUR ---
Patient is transported for surgery at this time.
[2019-12-30] MEDS ORDERED: LIDOCAINE HCL 1% LOCAL INJ 20 ML VIAL ONE (13:30)
[2019-12-30] MEDS ORDERED: BUPIVACAINE 0.25%/EPI 30ML SDV INJ ONE (13:30)
[2019-12-30] MEDS ORDERED: ACETAMINOPHEN 1000 MG/100 ML IV PRN (15:00)
[2019-12-30] MEDS: D5.45%NS/KCL 20MEQ 1,000 ML IV SCH (15:00)
[2019-12-30] MEDS ORDERED: CEFAZOLIN SOD 1 GM VIAL ONE (15:09)
[2019-12-30] MEDS ORDERED: EPHEDRINE SULFATE INJ 50 MG/ML VIAL ONE (15:09)
[2019-12-30] MEDS ORDERED: ONDANSETRON HCL INJ 2MG/ML 2ML 2 MG/ML VIAL ONE (15:09)
[2019-12-30] MEDS ORDERED: ROCURONIUM BROMIDE 10 MG/ML 5ML VIAL IV ONE (15:09)
[2019-12-30] MEDS ORDERED: SEVOFLURANE INHAL SOLN 250 ML PEN BTL ONE (15:09)
[2019-12-30] MEDS ORDERED: DEXAMETHASONE SOD PHOS INJ 4 MG/ML VIAL ONE (15:09)
[2019-12-30] MEDS ORDERED: KETOROLAC TROMETHAMINE 30 MG/ML VIAL ONE (15:09)
[2019-12-30] MEDS ORDERED: ETOMIDATE 2 MG/ML 10 ML INJ IV ONE (15:09)
[2019-12-30] MEDS ORDERED: LIDOCAINE HCL 2% LOCAL INJ 5 ML SDV VIAL INJ ONE (15:09)
[2019-12-30] MEDS ORDERED: PROPOFOL IV EMULSION 10 MG/ML 20 ML VIAL ONE (15:09)
--- NOTE | 2019-12-30 15:32 | NUR ---
Patient is back from surgery. LLQ abd incision with derma burns, intact, no bleeding. Respiration even and unlabored without SOB. Call light in reach.
--- NOTE | 2019-12-30 17:30 | NUR ---
Verbal order given by Dr. Davin Sauer to place negrete catheter is patient cannot urinate, and leave catheter in place.
[2019-12-30] MEDS: TAMSULOSIN HCL 0.4 MG CAP PO SCH (17:46)
--- NOTE | 2019-12-30 18:44 | Operative Report ---
DATE OF PROCEDURE: 12/30/2019 SURGEON: James Sauer MD PREOPERATIVE DIAGNOSIS: Incarcerated left inguinal hernia. POSTOPERATIVE DIAGNOSIS: Incarcerated left inguinal hernia. OPERATIONS PERFORMED: Repair of incarcerated left inguinal hernia with Prolene hernia system. STEAM SHOVEL OPERATING ENGINEER: LUIS Delgado. ANESTHESIA: General. COMPLICATIONS: None. ESTIMATED BLOOD LOSS: Minimal. DESCRIPTION OF PROCEDURE: With the patient lying in bed in the supine position under good general anesthesia, the abdomen was prepped with Betadine solution and draped in the usual manner. A left inguinal incision was made, it was carried down through the subcutaneous tissue down to the external oblique aponeurosis. External oblique was then opened along the length of its fibers and the external inguinal ring was opened. The cord was then mobilized and retracted. Examination of the cord revealed the presence of a hernia sac, which was slowly and carefully from the cord structures. A pursestring of 2-0 silk was then used to reduce the hernia sac and after all the contents were reduced back to the intraabdominal cavity. After this was done, the preperitoneal space was then entered through the internal ring and a pocket was created without any difficulty. A large Prolene hernia system was placed in the preperitoneal space and the underlay patch was deployed without any problems. The overlay patch was then placed over the floor and split inferolaterally to allow for passage of the cord. The mesh was then sutured to the conjoined tendon and the inguinal ligament using interrupted sutures of 2-0 Vicryl; this gave us a satisfactory repair without any tension. The whole area was then thoroughly irrigated. Perfect hemostasis was ascertained. All layers were infiltrated on the way out with solution of 0.25% Marcaine and 1% lidocaine mixed in equal parts. The external oblique aponeurosis was then closed with a running suture of 2-0 Vicryl. The subcutaneous tissue was approximated with 3-0 plain and the skin was closed with subcuticular 5-0 Vicryl and Dermabond. The patient tolerated the procedure well and returned to the recovery room in stable condition. MD ANDREEA Sauer/YANI /[id number]
[2019-12-30] MEDS: CEFAZOLIN SOD 1 GM/NS 50ML 50 ML IV SCH (21:24)
[2019-12-30] MEDS: ATORVASTATIN 10 MG TAB PO SCH (21:24)
[2019-12-31] VITALS (8 sets, daily range): BP systolic 118–157; BP diastolic 64–91
[2019-12-31] MEDS: HYDROMORPHONE 1MG/1ML INJ IV PRN (02:50)
[2019-12-31] MEDS: ACETAMINOPHEN/CODEINE 300MG - 30MG TAB PO PRN ×2 (04:29→21:16)
[2019-12-31] MEDS: D5.45%NS/KCL 20MEQ 1,000 ML IV SCH ×2 (04:39→16:00)
[2019-12-31] MEDS: CEFAZOLIN SOD 1 GM/NS 50ML 50 ML IV SCH (05:30)
--- NOTE | 2019-12-31 05:32 | NUR ---
Per md orders, 16 palauan negrete cath placed post bladder scan of 480. Son reports pt urinated small amounts of urine a few times. Negrete cath placed without difficulty and 700cc drained. Pt awake most of night, c/o generalized discomfort medicated with pain med per MAR. after negrete insertion pt c/o occasional sharp pain to incision site, med per MAR with pain pill with pt stating relief. No acute distress noted, pt bed in low and locked position with call tsang at bedside and son at bedside as well. Son states pt picking at tele monitor and negrete. Encouraged pt to leave negrete in place. Will cont to mon.
[2019-12-31] MEDS: LISINOPRIL 20 MG TAB PO SCH (09:20)
[2019-12-31] MEDS: ACETAMINOPHEN 325 MG TAB PO SCH ×2 (09:20→17:19)
[2019-12-31] MEDS: POTASSIUM CHLORIDE 20 MEQ TAB CR PO SCH (09:20)
--- NOTE | 2019-12-31 09:20 | NUR ---
REMOVED BIRCH PER DR. GALDAMEZ ORDERS. EMPTIED 345ML OF URINE FROM BIRCH BAG
--- NOTE | 2019-12-31 15:27 | NUR ---
Trimmer Tailer visited the pt , scale agent provided converstion , hope building and prayer. Pt expressed apprication for scale agent support and expressed hope and peace. chaplain Cassi
--- NOTE | 2019-12-31 16:06 | NUR ---
patient has not voided in 6 hours, bladder scan was done and 751 mL is retained in bladder. paged Dr Reed and waiting for call back
--- NOTE | 2019-12-31 16:08 | NUR ---
got telephone orders from Dr Reed to put negrete in and consult urologist
[2019-12-31] MEDS: TAMSULOSIN HCL 0.4 MG CAP PO SCH (17:18)
--- NOTE | 2019-12-31 17:28 | NUR ---
spoke with Dr Frost pertaining patient's urinary retention. stated that he would be by in the am 01/01/2020 to see patient
[2019-12-31] MEDS: ONDANSETRON HCL INJ 2MG/ML 2ML 2 MG/ML VIAL IV PRN (17:36)
[2019-12-31] MEDS: ATORVASTATIN 10 MG TAB PO SCH (21:05)
[2020-01-01] VITALS: BP 142/80
--- NOTE | 2020-01-01 00:20 | NUR ---
REPOSITIONED.CONFUSED.SON IS WITH PATIENT.HAD A SMALL AMOUNT OF BM.BIRCH CARE GIVEN.BED ALARM ON.BED LOCKED AND IN LOWEST POSITION.PHONE AND CALL LIGHT WITHIN REACH.INSTRUCTED TO CALL FOR ASSISTANCE NEEDED.
[2020-01-01 04:00] VITALS: BP 141/84
--- NOTE | 2020-01-01 05:00 | NUR ---
Patient pulled out the hospital gown and telemonitor.
[2020-01-01] MEDS: ACETAMINOPHEN/CODEINE 300MG - 30MG TAB PO PRN (05:50)
[2020-01-01] MEDS: D5.45%NS/KCL 20MEQ 1,000 ML IV SCH (06:04)
--- NOTE | 2020-01-01 07:10 | NUR ---
BED SIDE SHIFT REPORT GIVEN TO ONCOMING RN.STABLE CONDITION.
[2020-01-01 07:27] VITALS: BP 137/76
[2020-01-01 07:28] VITALS: BP 137/76
[2020-01-01] MEDS: POTASSIUM CHLORIDE 20 MEQ TAB CR PO SCH (09:02)
[2020-01-01] MEDS: ACETAMINOPHEN 325 MG TAB PO SCH (09:03)
[2020-01-01] MEDS: LISINOPRIL 20 MG TAB PO SCH (09:03)
--- NOTE | 2020-01-01 10:29 | NUR ---
EDUCATED ABOUT IMM, SIGNED, FILED IN CHART, WITH COPY LEFT WITH FAMILY AT BEDSIDE.
[2020-01-01] MEDS ORDERED: PNEUMOCOCCAL VACCINE POLYVALENT 23 MCG/0.5 ML VIAL IM SCH (11:00)
[2020-01-01 11:19] VITALS: BP 143/76
--- NOTE | 2020-01-01 20:51 | Discharge Summary ---
Mr. Shell is a pleasant complex 79-year-old man with metastatic prostate cancer, who presented to the emergency room with incarcerated left inguinal hernia. HOSPITAL COURSE: The patient was found to be hypokalemic and his lisinopril/hydrochlorothiazide was stopped and substituted for lisinopril alone. He was repleted with potassium and seen in consultation by Dr. James Sauer, who on December 29 took him to the operating room and repaired his inguinal hernia successfully. However, on the morning of December 30 his Almaguer catheter was discontinued and he found he could not urinate, had urinary retention, Almaguer catheter was replaced. He was seen by Dr. Frost, who felt he should leave the Almaguer catheter and see him in the office for further management. The patient is afebrile, feeling well, normotensive, and potassium is normal. He is discharged home to changes his home medications to lisinopril 20 mg daily and Slow-K 8 mEq one daily. He will continue chemotherapy with Dr. Mendez as his PSA is now only 5.22, he had successful treatment. He will follow up with Dr. Sauer and Dr. Frost in their offices and Dr. Mendez on a regular basis. DISCHARGE DIAGNOSES: 1. Incarcerated left inguinal hernia. 2. Hypokalemia. 3. Successful repair of inguinal hernia. 4. Metastatic prostate cancer. 5. Hypertension. 6. Mild dementia. MD MARY LOU Luke/SLOANEL /[id number] cc: MD Aminata Sauer MD Edward Schatte, MD
== END 2020-01-01 12:03 | disposition home or self-care (01) | DRG 351 ==
LOC: FSED 13:20 → ERHOLD 15:00 → MED/SURG 17:37
PROVIDERS: ADMIT Internal Medicine Cardiovascular Disease; ATTEND Internal Medicine Cardiovascular Disease
PROC: 0YU60JZ Supplement Left Inguinal Region with Synthetic Substitute, Open Approach (ICD-10-PCS; principal; 2019-12-30 13:33)
DX: K40.30 Unilateral inguinal hernia, with obstruction, without gangrene, not specified as recurrent (principal); C79.51 Secondary malignant neoplasm of bone; C61 Malignant neoplasm of prostate; E87.6 Hypokalemia; I12.9 Hypertensive chronic kidney disease with stage 1 through stage 4 chronic kidney disease, or unspecified chronic kidney disease; N18.9 Chronic kidney disease, unspecified; Z96.652 Presence of left artificial knee joint; Z87.891 Personal history of nicotine dependence; F03.90 Unspecified dementia, unspecified severity, without behavioral disturbance, psychotic disturbance, mood disturbance, and anxiety
CPT/HCPCS: 36415; 70450; 74176; 80048; 80053; 80076; 81003; 84152; 85025; 90714; 90732; 93005; 96361; 96374; 99284; C1781; J0690; J1100; J1170; J1885; J2001; J2060; J2405; U0002

== ENCOUNTER 2024-01-21 11:24 | Inpatient (IN) | payer MEDICARE ==
[~2024-01-21] VITALS: Ht 177.8 cm; Wt 72.6 kg
[2024-01-21] VITALS (7 sets, daily range): BP systolic 117–147; BP diastolic 67–81; PULSE 72–138; RESP 16–23; TEMP 98.9–99.6; O2SAT 96–100
[~2024-01-21 11:24] MED LIST changes: +ACETAMINOPHEN325 M1 PO; +ALBUTEROL2.5 MG/3 M NEB; +AMOX TR-K CLV1 EAC2 PO; +ASPIRIN81 MG PO; +ATORVASTATIN CA40 MG PO; +AZO BLADDER CO300 MG PO; +CARBIDOPA-LEVO1 EAC1 PO; +IPRATROPIU0.2 MG/1 M INH; +LISINOPRIL10 MG PO; +POTASSIUM CHLOR8 MEQ PO; +ROPINIROLE HC0.25 MG PO; +VITAMIN B-121000 MCG PO; +VITAMIN D350 MCG; +[UNRECOGNIZED DRUG - SUPPLY] NEB
[2024-01-21] MEDS ORDERED: SODIUM CHLORIDE 0.9% 500ML 500 ML IV ONE (12:00)
[2024-01-21] MEDS: SODIUM CHLORIDE 0.9% 1000ML 1,000 ML IV ONE (12:19)
[2024-01-21 12:46] LABS: BASOPHILS % 0.6 % (0.0-1.0); EOSINOPHILS % 0.2 % (0.0-6.0); HEMATOCRIT 38.9 % (38.2-49.6); HEMOGLOBIN 12.1 g/dL (14.0-18.0); LYMPHOCYTES # (AUTO) 0.5 (1.0-3.2); LYMPHOCYTES % 7.4 % (18.0-39.1); MEAN CORPUSCULAR HEMOGLOBIN 29.1 pg (28-32); MEAN CORPUSCULAR HGB CONC 31.1 g/dL (31-35); MEAN CORPUSCULAR VOLUME 93.5 fL (81-99); MONOCYTES # (AUTO) 0.8 (0.2-0.8); MONOCYTES % 11.9 % (4.4-11.3); NEUTROPHILS # (AUTO) 5.3 (2.1-6.9); NEUTROPHILS % 79.6 % (38.7-80.0); PLATELET COUNT 225 x10e3/uL (140-360); RED BLOOD COUNT 4.16 x10e6/uL (4.3-5.7); RED CELL DISTRIBUTION WIDTH 14.6 % (11.7-14.4); WHITE BLOOD COUNT 6.63 x10e3/uL (4.8-10.8)
[2024-01-21 12:58] LABS: INR 1.05; PROTHROMBIN TIME 14.2 seconds (11.9-14.5)
[2024-01-21 12:59] LABS: PARTIAL THROMBOPLASTIN TIME 34.9 seconds (23.8-35.5)
[2024-01-21 13:04] LABS: ALBUMIN 3.3 g/dL (3.5-5.0); ALBUMIN/GLOBULIN RATIO 0.9 (0.8-2.0); ALKALINE PHOSPHATASE 90 IU/L (40-150); ANION GAP 14.3 mmol/L (8-16); BILIRUBIN,TOTAL 0.4 mg/dL (0.2-1.2); BLOOD UREA NITROGEN 38 mg/dL (7-26); BUN/CREATININE RATIO 18 (6-25); CALCIUM 8.8 mg/dL (8.4-10.2); CARBON DIOXIDE 20 mmol/L (22-29); CHLORIDE 106 mmol/L (98-107); CREATININE, SERUM 2.09 mg/dL (0.72-1.25); EST GLOMERULAR FILTRATION RATE 31 ML/MIN (>=60); GLUCOSE 104 mg/dL (74-118); MAGNESIUM 1.9 MG/DL (1.3-2.1); POTASSIUM 4.3 mmol/L (3.5-5.1); SODIUM 136 mmol/L (136-145); TOTAL PROTEIN 6.8 g/dL (6.5-8.1)
[2024-01-21 13:05] LABS: ALANINE AMINOTRANSFERASE < 6 IU/L (0-55)
[2024-01-21 13:10] LABS: TROPONIN I 0.009 ng/mL (0-0.300)
[2024-01-21 13:24] LABS: CLARITY,URINE CLOUDY (CLEAR); COLOR,URINE YELLOW (YELLOW)
[2024-01-21 13:25] LABS: BILIRUBIN,URINE NEGATIVE (NEGATIVE); GLUCOSE, URINE NEGATIVE (NEGATIVE); KETONES,URINE NEGATIVE (NEGATIVE); LEUKOCYTE ESTERASE ,URINE SMALL (NEGATIVE); NITRITE,URINE NEGATIVE (NEGATIVE); PH,URINE 7 (5 - 7); PROTEIN,URINE DIPSTICK 2+ (NEGATIVE); URINE UROBILINOGEN 0.2 mg/dL (0.2 - 1)
[2024-01-21] MEDS: SODIUM CHLORIDE 0.9% 1000ML 1,000 ML IV SCH (13:49)
[2024-01-21 13:51] LABS: RBC,URINE >50 /HPF (0-5)
[2024-01-21 13:52] LABS: BACTERIA,URINE RARE /HPF
[2024-01-21] MEDS ORDERED: ONDANSETRON HCL INJ 2MG/ML 2ML 2 MG/ML VIAL IV PRN (14:15)
[2024-01-21 19:10] LABS: TROPONIN I 0.022 ng/mL (0-0.300)
[2024-01-21] MEDS ORDERED: ARICEPT5 MG PO (22:02)
[2024-01-22] VITALS (10 sets, daily range): BP systolic 94–128; BP diastolic 57–75; PULSE 57–78; RESP 17–20; TEMP 97.7–100.1; O2SAT 95–100
[2024-01-22] MEDS: ACETAMINOPHEN 325 MG TAB PO PRN (00:21)
[2024-01-22 05:43] LABS: BASOPHILS % 0.7 % (0.0-1.0); HEMATOCRIT 34.9 % (38.2-49.6); HEMOGLOBIN 10.8 g/dL (14.0-18.0); LYMPHOCYTES # (AUTO) 1.3 (1.0-3.2); LYMPHOCYTES % 21.6 % (18.0-39.1); MEAN CORPUSCULAR HEMOGLOBIN 29.4 pg (28-32); MEAN CORPUSCULAR HGB CONC 30.9 g/dL (31-35); MEAN CORPUSCULAR VOLUME 95.1 fL (81-99); MONOCYTES # (AUTO) 0.9 (0.2-0.8); MONOCYTES % 15.4 % (4.4-11.3); NEUTROPHILS # (AUTO) 3.6 (2.1-6.9); NEUTROPHILS % 62.1 % (38.7-80.0); PLATELET COUNT 193 x10e3/uL (140-360); RED BLOOD COUNT 3.67 x10e6/uL (4.3-5.7); RED CELL DISTRIBUTION WIDTH 14.5 % (11.7-14.4); WHITE BLOOD COUNT 5.78 x10e3/uL (4.8-10.8)
[2024-01-22 06:05] LABS: ALBUMIN 2.6 g/dL (3.5-5.0); ANION GAP 9.9 mmol/L (8-16); BILIRUBIN,TOTAL 0.2 mg/dL (0.2-1.2); CALCIUM 8.3 mg/dL (8.4-10.2); CREATININE, SERUM 1.68 mg/dL (0.72-1.25); POTASSIUM 3.9 mmol/L (3.5-5.1); TOTAL PROTEIN 5.3 g/dL (6.5-8.1)
[2024-01-22 06:28] LABS: TROPONIN I 0.025 ng/mL (0-0.300)
[2024-01-22] MEDS ORDERED: HYDRALAZINE HCL 20 MG/ML VIAL IV PRN (11:45)
[2024-01-22] MEDS ORDERED: POLYETHYLENE GLYCOL 3350 17 GM PACK PO PRN (11:45)
[2024-01-22 13:14] LABS: FERRITIN 321.86 ng/mL (21.81-274.66)
[2024-01-22 13:36] LABS: FOLATE 4.6 ng/mL (7.0-15.4)
[2024-01-22] MEDS: ROPINIROLE HCL 0.25 MG TAB PO SCH (14:11)
[2024-01-22] MEDS: CARBIDOPA/LEVODOPA 25/100 TAB PO SCH (14:11)
[2024-01-22] MEDS: FOLIC ACID 1 MG TAB PO ONE (15:28)
[2024-01-22] MEDS: ASCORBIC ACID 500 MG TAB PO SCH (16:53)
[2024-01-22] MEDS: TAMSULOSIN HCL 0.4 MG CAP PO SCH (16:53)
[2024-01-22] MEDS: DOCUSATE SODIUM 100 MG CAP PO SCH (16:54)
[2024-01-22] MEDS: FERROUS SULFATE 325 MG TAB PO SCH (16:54)
[2024-01-22] MEDS: ATORVASTATIN 40 MG TAB PO SCH (20:34)
[2024-01-23] VITALS (8 sets, daily range): BP systolic 100–126; BP diastolic 49–74; PULSE 56–70; RESP 17–20; TEMP 97.6–98.9; O2SAT 93–99
[2024-01-23 05:22] LABS: BASOPHILS % 0.6 % (0.0-1.0); EOSINOPHILS % 0.4 % (0.0-6.0); HEMATOCRIT 37.3 % (38.2-49.6); HEMOGLOBIN 11.2 g/dL (14.0-18.0); LYMPHOCYTES # (AUTO) 1.2 (1.0-3.2); LYMPHOCYTES % 22.9 % (18.0-39.1); MEAN CORPUSCULAR HEMOGLOBIN 28.6 pg (28-32); MEAN CORPUSCULAR VOLUME 95.4 fL (81-99); MONOCYTES # (AUTO) 0.7 (0.2-0.8); MONOCYTES % 13.1 % (4.4-11.3); NEUTROPHILS # (AUTO) 3.4 (2.1-6.9); NEUTROPHILS % 62.6 % (38.7-80.0); PLATELET COUNT 209 x10e3/uL (140-360); RED BLOOD COUNT 3.91 x10e6/uL (4.3-5.7); RED CELL DISTRIBUTION WIDTH 14.5 % (11.7-14.4); WHITE BLOOD COUNT 5.36 x10e3/uL (4.8-10.8)
[2024-01-23 06:00] LABS: ALBUMIN 2.5 g/dL (3.5-5.0); ALBUMIN/GLOBULIN RATIO 0.9 (0.8-2.0); ALKALINE PHOSPHATASE 69 IU/L (40-150); ANION GAP 7.4 mmol/L (8-16); BILIRUBIN,TOTAL 0.3 mg/dL (0.2-1.2); BLOOD UREA NITROGEN 26 mg/dL (7-26); BUN/CREATININE RATIO 18 (6-25); CALCIUM 8.3 mg/dL (8.4-10.2); CARBON DIOXIDE 21 mmol/L (22-29); CHLORIDE 113 mmol/L (98-107); CREATININE, SERUM 1.45 mg/dL (0.72-1.25); EST GLOMERULAR FILTRATION RATE 48 ML/MIN (>=60); GLUCOSE 75 mg/dL (74-118); MAGNESIUM 1.7 MG/DL (1.3-2.1); PHOSPHORUS 2.6 MG/DL (2.3-4.7); SODIUM 138 mmol/L (136-145); TOTAL PROTEIN 5.4 g/dL (6.5-8.1)
[2024-01-23 06:02] LABS: ALANINE AMINOTRANSFERASE < 6 IU/L (0-55); POTASSIUM 3.4 mmol/L (3.5-5.1)
[2024-01-23] MEDS ORDERED: BENZONATATE 100 MG CAP PO PRN (08:45)
[2024-01-23] MEDS: BENZONATATE 100 MG CAP PO ONE (09:21)
[2024-01-23] MEDS: FOLIC ACID 1 MG TAB PO SCH (09:21)
[2024-01-23] MEDS: POTASSIUM CHLORIDE 20 MEQ TAB CR PO ONE (18:03)
[2024-01-24 04:00] VITALS: BP 119/67; PULSE 61; RESP 20; TEMP 98.7; O2SAT 100
[2024-01-24 07:00] LABS: ANION GAP 9.6 mmol/L (8-16); CALCIUM 7.8 mg/dL (8.4-10.2); CREATININE, SERUM 1.26 mg/dL (0.72-1.25); POTASSIUM 3.6 mmol/L (3.5-5.1)
[2024-01-24 07:42] VITALS: BP 121/67; PULSE 62; RESP 18; TEMP 98.6; O2SAT 100
[2024-01-24 07:56] VITALS: BP 121/67; PULSE 62; RESP 18; TEMP 98.6; O2SAT 100
[2024-01-24] MEDS ORDERED: FOLIC ACID0.8 MG PO (08:23)
[2024-01-24] MEDS ORDERED: ACETAMINOPHEN325 M1 PO (08:23)
[2024-01-24] MEDS ORDERED: BENZONATATE100 MG PO (08:23)
[2024-01-24] MEDS ORDERED: ASCORBIC ACID500 MG PO (08:23)
[2024-01-24] MEDS ORDERED: MULTIVITAMINS1 EAC6 PO (08:23)
[2024-01-24] MEDS ORDERED: FEROSUL325 MG PO (08:23)
== END 2024-01-24 10:33 | disposition home or self-care (01) | DRG 178 ==
LOC: ER 12:03 → ERHOLD 14:15 → MED/SURG3 20:33
PROVIDERS: ADMIT Internal Medicine; ATTEND Internal Medicine
DX: U07.1 COVID-19 (principal); N17.9 Acute kidney failure, unspecified; N39.0 Urinary tract infection, site not specified; D52.9 Folate deficiency anemia, unspecified; C61 Malignant neoplasm of prostate; G20.A1 Parkinson's disease without dyskinesia, without mention of fluctuations; F02.80 Dementia in other diseases classified elsewhere, unspecified severity, without behavioral disturbance, psychotic disturbance, mood disturbance, and anxiety; E86.0 Dehydration; D50.9 Iron deficiency anemia, unspecified; E83.42 Hypomagnesemia; I49.1 Atrial premature depolarization; E78.5 Hyperlipidemia, unspecified; Z66 Do not resuscitate; I12.9 Hypertensive chronic kidney disease with stage 1 through stage 4 chronic kidney disease, or unspecified chronic kidney disease; N18.9 Chronic kidney disease, unspecified; I25.10 Atherosclerotic heart disease of native coronary artery without angina pectoris; M47.816 Spondylosis without myelopathy or radiculopathy, lumbar region; Z79.82 Long term (current) use of aspirin; Z87.891 Personal history of nicotine dependence
CPT/HCPCS: 36415; 51700; 71045; 80048; 80053; 81001; 82550; 82607; 82728; 82746; 83540; 83735; 84100; 84466; 84484; 85025; 85045; 85610; 85730; 87040; 87086; 93005; 99252; 99284; J0696; J7030; J7040; U0002